=== PATIENT | male | born 1985 | race Two or more races ===

== ENCOUNTER 2023-12-28 17:07 | Inpatient (IN) | payer OTHER ==
[~2023-12-28] VITALS: Ht 180.3 cm; Wt 84.4 kg
--- NOTE | 2023-12-28 19:00 | ED.PDOC ---
Musculoskeletal HPI Comments 38 year old male with history of right index finger osteomyelitis brought in by law enforcement for evaluation of partially treated osteomyelitis. Patient is an inmate, was admitted at [facility] 3 weeks ago and was treated for osteomyelitis of the right index finger with vancomycin. Patient states he received IV antibiotics for about 14 days. Law enforcement officers accompanying the patient state that he was removed from hospital due to security reasons, and has not resumed any treatment. Patient comes in today for completion of his IV antibiotic course. He denies fever. He does have right index finger pain and swelling. Chief Complaint: Upper Extremity Time Seen by MD: 18:59 Primary Care Provider: INMATE Reviewed Notes: Nurses Notes Allergies: Coded Allergies: NO KNOWN ALLERGIES (Unverified , 12/28/23) Information Source: Patient Mode of Arrival: [facility]NOTE 3] [facility] GUARDS Location: Right Extremity Location: Finger 2 Timing: Weeks Severity: Moderate Able to Move Extremity: Yes Bear Weight: Limited Pain: Moderate Hand Dominance: Right Mechanism: Spontaneous Circumstances: Spontaneous Onset of Symptoms: Spontaneous Symptoms: Swelling, Pain Associated signs and symptoms: Other (right index finger) Past Medical History PAST MEDICAL HISTORY: Anxiety Past Medical History (Other): Right index finger osteomyelitis Surgical History (Other): Cervical spinal fusion Family History Family History: Reviewed,noncontributory to illness Social History Smoker: Non-Smoker Alcohol: Denies ETOH Use Drugs: Denies Drug Use Lives In: Home Constitutional: denies: chills, diaphoresis, fatigue, fever, malaise, sweats, weakness, others EENTM: denies: blurred vision, double vision, ear bleeding, ear discharge, ear drainage, ear pain, ear ringing, eye pain, eye redness, hearing loss, mouth pain, mouth swelling, nasal discharge, nose bleeding, nose congestion, nose pain, photophobia, tearing, throat pain, throat swelling, voice changes, others Respiratory: denies: cough, hemoptysis, orthopnea, SOB at rest, shortness of breath, SOB with excertion, stridor, wheezing, others Cardiovascular: denies: chest pain, dizzy spells, diaphoresis, Dyspnea on exertion, edema, irregular heart beat, left arm pain, lightheadedness, palpitations, PND, syncope, others Gastrointestinal: denies: abdomen distended, abdominal pain, blood streaked bowels, constipated, diarrhea, dysphagia, difficulty swallowing, hematemesis, melena, nausea, poor appetite, poor fluid intake, rectal bleeding, rectal pain, vomiting, others Genitourinary: denies: burning, dysuria, flank pain, frequency, hematuria, incontinence, penile discharge, penile sore, pain, testicle pain, testicle swelling, urgency, others Neurological: denies: dizziness, fainting, headache, left sided numbness, left sided weakness, numbness, paresthesia, pre-existing deficit, right sided numbness, right sided weakness, seizure, speech problems, tingling, tremors, weakness, others Musculoskeletal: reports: others (right index finger pain and swelling); denies: back pain, gout, joint pain, joint swelling, muscle pain, muscle stiffness, neck pain Integumetry: denies: bruises, change in color, change in hair/nails, dryness, laceration, lesions, lumps, rash, wounds, others Allergic/Immunocompromised: denies: Difficulty Healing, Frequent Infections, Hives, Itching, others Hematologic/Lymphatic: denies: anemia, blood clots, easy bleeding, easy bruising, swollen glands, others Endocrine: denies: excessive hunger, excessive sweating, excessive thirst, excessive urination, flushing, intolerance to cold, intolerance to heat, unexplained weight gain, unexplained weight loss, others Psychiatric: denies: anxiety, bipolar disorder, depression, hopeless, panic disorder, schizophrenia, sleepless, suicidal, others Physical Exam General Appearance: No Apparent Distress HEENT: Normal ENT Inspection Neck: Full Range of Motion, Normal Inspection Respiratory: Lungs Clear, No Accessory Muscle Use, No Respiratory Distress, Normal Breath Sounds Cardiovascular: No Edema, No JVD, Regular Rate/Rhythm Breast Exam: Deferred Gastrointestinal: Non Tender, Soft Genitalia: Deferred Pelvic: Deferred Rectal: Deferred Extremities: Normal range of motion, No pedal edema, Other (Right index finger moderate diffuse erythema and edema. No fluctuance or discharge.) Neurologic: Alert, No Motor Deficits, Normal Affect, Normal Mood, No Sensory Deficits Cerebellar Function: NOT DONE Reflexes: NOT DONE Skin: Dry, Normal Color, Warm Lymphatic: NOT DONE Was a procedure done? Was a procedure done?: No Differential Diagnosis EXT Differential Diagnosis: Cellulitis, Septic, Arthritis, Other (Abscess, osteomyelitis, among others) X-Ray, Labs, Meds, VS Vital Signs Date Time Temp Pulse Resp B/P (MAP) Pulse Ox O2 Delivery O2 Flow Rate FiO2 12/28/23 21:36 Room Air* 0 21 12/28/23 21:35 98.4 86 16 131/82 (98) 100 98.4 12/28/23 17:07 99.9 95 18 123/70 (87) 98 Lab Test 12/28/23 20:54 12/28/23 20:01 Range/Units Lactic Acid Level 1.0 0.4-2.0 mmol/L White Blood Count 8.2 4.4-10.8 10^3/uL Red Blood Count 4.74 4.5-5.90 10^6/uL Hemoglobin 15.4 13.5-17.5 g/dL Hematocrit 44.2 41.0-53.0 % Mean Corpuscular Volume 93.2 80.0-100.0 fL Mean Corpuscular Hemoglobin 32.5 H 28.0-32.0 pg Mean Corpuscular Hemoglobin Concent 34.9 32.0-36.0 g/dL Red Cell Distribution Width 13.2 11.8-14.3 % Platelet Count 240 140-450 10^3/uL Mean Platelet Volume 8.3 6.9-10.8 fL Neutrophils (%) (Auto) 64.1 37.0-80.0 % Lymphocytes (%) (Auto) 23.1 10.0-50.0 % Monocytes (%) (Auto) 9.4 0.0-12.0 % Eosinophils (%) (Auto) 2.7 0.0-7.0 % Basophils (%) (Auto) 0.7 0.0-2.0 % Neutrophils # (Auto) 5.3 1.6-8.6 10 ^3/uL Lymphocytes # (Auto) 1.9 0.4-5.4 10 ^3/uL Monocytes # (Auto) 0.8 0-1.3 10 ^3/uL Eosinophils # (Auto) 0.2 0-0.8 10 ^3/uL Basophils # (Auto) 0.1 0-0.2 10 ^3/uL Nucleated Red Blood Cells 0.1 % Sodium Level 138 136-145 mmol/L Potassium Level 4.5 3.5-5.1 mmol/L Chloride Level 106 98-107 mmol/L Carbon Dioxide Level 24 20-30 mmol/L Anion Gap 8 5-15 Blood Urea Nitrogen 13 9-23 mg/dL Creatinine 1.04 0.700-1.30 mg/dL Glomerular Filtration Rate Calc 95 >90 mL/min BUN/Creatinine Ratio 12.5 10.0-20.0 Serum Glucose 68 L 74-106 mg/dL Calcium Level 10.4 8.7-10.4 mg/dL Current Medications Medications (Trade) Dose Ordered Sig/Susan Route Start Time Stop Time Status Last Admin Vancomycin HCl 200 ml @ 200 mls/hr ONCE ONCE IV 12/28/23 18:30 12/28/23 19:29 DC 12/28/23 21:39 Ketorolac Tromethamine (Toradol Injection) 30 mg ONCE ONCE IV 12/28/23 18:30 12/28/23 18:31 DC 12/28/23 21:39 Sodium Chloride 1,000 ml @ 60 mls/hr [id number] IV 12/28/23 22:30 12/28/23 22:53 X-Ray, Labs, Meds, VS Comment 38-year-old male with history of right index finger osteomyelitis brought in by law enforcement for completion of treatment. Patient states he only received 14 days of IV vancomycin before he was removed from the hospital for security reasons. Vitals remarkable for temperature 99.9 Exam remarkable for right index finger diffuse soft tissue swelling, tenderness and erythema CBC, basic metabolic panel, lactate remarkable for glucose 68, no other abnormalities of acute significance. Right hand x-rays PROCEDURE(s): RHAN - R HAND 3 VIEW XRAY REASON: osteomyelitis R index ffinger ORDER NUMBER(s): [id number], ACCESSION NUMBER(s): [id number] CLINICAL INDICATION: osteomyelitis R index ffinger TECHNIQUE: XY R HAND 3 VIEW XRAY Comparison: None FINDINGS/IMPRESSION: There is no evidence of acute fracture or dislocation. Diffuse soft tissue swelling possible osteomyelitis involving the 2nd renal phalanx. MRI recommended. Patient received vancomycin 1 g IV and Toradol 30 mg IV in the ED. He was provided with a meal. Plan is to admit the patient for IV antibiotics and MRI of the hand to evaluate the severity of osteomyelitis. Time of 1ST Reevaluation: 18:53 Reevaluation 1ST: Unchanged Patient Education/Counseling: Diagnosis, Treatment Family Education/Counseling: No Family Present Departure 1 Departure Time of Disposition: 19:13 Impression: Primary Impression: Finger osteomyelitis, right Disposition: ADMITTED INPATIENT Admit to: Med Surg Condition: Fair Critical Care Note Critical Care Time?: No Stability Stability form required: No Heart Score Heart Score: Heart Score Response (Comments) Value History N/A 0 EKG N/A 0 Age N/A 0 Risk Factors N/A 0 Troponin N/A 0 Total 0 I personally scribed for SREEDHAR PADILLA MD ([email or web address]) on 12/28/23 at 19:00. Electronically submitted by Mello Mcclendon ([facility]). SREEDHAR PADILLA MD Dec 28, 2023 19:00
--- NOTE | 2023-12-28 19:16 | DVH ---
CLINICAL INDICATION: osteomyelitis R index ffinger TECHNIQUE: XY R HAND 3 VIEW XRAY Comparison: None FINDINGS/IMPRESSION: There is no evidence of acute fracture or dislocation. Diffuse soft tissue swelling possible osteomyelitis involving the 2nd renal phalanx. MRI recommended.
[2023-12-28 20:15] LABS: Basophils # (auto) 0.1 10 ^3/uL (0-0.2); Basophils % (auto) 0.7 % (0.0-2.0); Eosinophils # (auto) 0.2 10 ^3/uL (0-0.8); Eosinophils % (auto) 2.7 % (0.0-7.0); Hematocrit 44.2 % (41.0-53.0); Hemoglobin 15.4 g/dL (13.5-17.5); Lymphocytes # (auto) 1.9 10 ^3/uL (0.4-5.4); Lymphocytes % (auto) 23.1 % (10.0-50.0); Mean Corpuscular Hemoglobin 32.5 pg (28.0-32.0); Mean Corpuscular Hgb Conc. 34.9 g/dL (32.0-36.0); Mean Corpuscular Volume 93.2 fL (80.0-100.0); Monocytes # (auto) 0.8 10 ^3/uL (0-1.3); Monocytes % (auto) 9.4 % (0.0-12.0); Neutrophils # (auto) 5.3 10 ^3/uL (1.6-8.6); Neutrophils % (auto) 64.1 % (37.0-80.0); Nucleated Red Blood Cells % 0.1 %; Platelet Count (auto) 240 10^3/uL (140-450); Red Blood Cells 4.74 10^6/uL (4.5-5.90); Red Cell Distribution Width 13.2 % (11.8-14.3); White Blood Cell 8.2 10^3/uL (4.4-10.8)
[2023-12-28 20:28] LABS: Chloride 106 mmol/L (98-107); Potassium 4.5 mmol/L (3.5-5.1); Sodium 138 mmol/L (136-145)
[2023-12-28 20:29] LABS: Anion Gap 8 (5-15); Carbon Dioxide 24 mmol/L (20-30)
[2023-12-28 20:30] LABS: Calcium 10.4 mg/dL (8.7-10.4)
[2023-12-28 20:34] LABS: BUN/Creatinine Ratio 12.5 (10.0-20.0); Blood Urea Nitrogen 13 mg/dL (9-23); Glucose 68 mg/dL (74-106)
[2023-12-28] MEDS: VANCOMYCIN 1GM/200ML PREMIX 200 ML IV ONE (21:39)
[2023-12-28] MEDS: KETOROLAC TROMETH 30 MG/ML 1ML VIAL IV ONE (21:39)
[2023-12-28] MEDS ORDERED: MORPHINE SULFATE INJ 2 MG/ml SYRG IV PRN ×2 (22:30)
[2023-12-28] MEDS ORDERED: NITROGLYCERIN 0.4 MG SL TAB SL PRN (22:30)
[2023-12-28] MEDS ORDERED: HYDROcodone-ACET 5/325MG TAB PO PRN (22:30)
[2023-12-28] MEDS ORDERED: VANCOMYCIN PER PHARMACY 0 MG IV SCH (22:30)
[2023-12-28] MEDS ORDERED: ONDANSETRON HCL 4 MG/2 ML VIAL IV PRN (22:30)
[2023-12-28] MEDS ORDERED: ACETAMINOPHEN 325 MG TAB PO PRN (22:30)
--- NOTE | 2023-12-28 22:31 | DVHHP2 ---
History of Present Illness Reason for Visit: Finger osteomyelitis, right History of Present Illness The patient is a 38-year-old male inmate with past medical history of anxiety and right index finger osteomyelitis who presented to [facility] ED accompanied by law enforcement officers with complaint of right index finger pain. Patient was admitted at [facility] 3 weeks ago and was treated for osteomyelitis of the right index finger with vancomycin. Patient reports he received IV antibiotics for about 14 days, but was removed from Hospital due to security reason and has not resumed any treatment. Patient was seen and evaluated in the ED, laboratory data shows glucose 68, calcium 10.4. Right finger x-ray revealing diffuse soft tissue swelling possible osteomyelitis involving the 2nd renal phalanx; no evidence of acute fracture or dislocation. Patient was started on IV antibiotic regimen vancomycin, please see medication orders section in the computer. On my assessment, patient denies chest pain, no headache, no dizziness, no shortness of breath, no nausea, no vomiting, no fever, no chills. Patient was admitted for further evaluation and medical management. Past Medical History Anxiety, Right index finger osteomyelitis Past Surgical History Cervical spinal fusion surgery Family History Reviewed, noncontributory to the management of this case. Past Social History The patient lives at home, denies smoking, alcohol or illicit drugs abuse. Review of Systems Constitutional: No: Fever, Chills, Sweats, Weakness, Malaise, Other Eyes: No: Pain, Vision change, Conjunctivae inflammation, Eyelid inflammation, Other, Redness ENT: No: Ear pain, Ear discharge, Nose pain, Nose discharge, Nose congestion, Mouth pain, Mouth swelling, Throat pain, Throat swelling, Other Respiratory: No: Cough, Dry, Shortness of breath, SOB with excertion, Wheezing, Hemoptysis, Pleuritic Pain, Sputum, Wheezing, Other Cardiovascular: No: Chest Pain, Palpitations, Orthopnea, Paroxysmal Noc. Dyspnea, Edema, Lt Headedness, Other Gastrointestinal: No: Nausea, Vomiting, Abdominal Pain, Diarrhea, Constipation, Melena, Hematochezia, Other Genitourinary: No Dysuria, No Frequency, No Incontinence, No Hematuria, No Retention, No Other Musculoskeletal: other (right index finger pain and swelling); No: neck pain, shoulder pain, arm pain, back pain, hand pain, leg pain, foot pain Skin: No: Rash, Lesions, Jaundice, Bruising, Other Neurological: No: Weakness, Numbness, Incoordination, Change in speech, Confusion, Seizures, Other Allergies: Coded Allergies: NO KNOWN ALLERGIES (Unverified , 12/28/23) Medications Current Medications Medications Dose Ordered Sig/Susan Route Start Time Stop Time Status Last Admin Dose Admin Vancomycin HCl 0 ml @ 0 mls/hr UD IV 12/28/23 22:30 UNV Sodium Chloride 1,000 ml @ 60 mls/hr [id number] IV 12/28/23 22:30 Acetaminophen/ Hydrocodone Bitart 1 tab Q4HP PRN PO 12/28/23 22:30 Ondansetron HCl 4 mg Q4HP PRN IV 12/28/23 22:30 Docusate Sodium 100 mg BIDPRN PRN PO 12/28/23 22:30 Acetaminophen 650 mg Q6HP PRN PO 12/28/23 22:30 Morphine Sulfate 2 mg Q4HPRN PRN IV 12/28/23 22:30 Exam Vital Signs Vital Signs Date Time Temp Pulse Resp B/P (MAP) Pulse Ox O2 Delivery O2 Flow Rate FiO2 12/28/23 21:36 Room Air* 0 21 12/28/23 21:35 98.4 86 16 131/82 (98) 100 98.4 General Appearance: Alert, Oriented X3, Cooperative, No acute distress HEENT: Atraumatic, PERRLA, EOMI, Mucous membr. moist/pink Respiratory: Clear to auscultation, Normal air movement Cardiovascular: Regular rate, Normal S1, Normal S2, No murmurs Abdominal: Normal bowel sounds, Soft, No tenderness, No hepatospenomegaly, No masses Extremities: No clubbing, No cyanosis, No edema, Normal pulses, Other (Right index finger tenderness/swelling.) Skin: No rashes, No breakdown, No significant lesion Neuro: Normal gait, Normal speech, Strength at 5/5 X4 ext, Normal tone, Sensation intact, Cranial nerves 3-12 NL, Reflexes 2+ Psych/Mental Status: Mental status NL, Mood NL Labs/Xrays Labs Test 12/28/23 20:54 12/28/23 20:01 Range/Units Lactic Acid Level 1.0 0.4-2.0 mmol/L White Blood Count 8.2 4.4-10.8 10^3/uL Red Blood Count 4.74 4.5-5.90 10^6/uL Hemoglobin 15.4 13.5-17.5 g/dL Hematocrit 44.2 41.0-53.0 % Mean Corpuscular Volume 93.2 80.0-100.0 fL Mean Corpuscular Hemoglobin 32.5 H 28.0-32.0 pg Mean Corpuscular Hemoglobin Concent 34.9 32.0-36.0 g/dL Red Cell Distribution Width 13.2 11.8-14.3 % Platelet Count 240 140-450 10^3/uL Mean Platelet Volume 8.3 6.9-10.8 fL Neutrophils (%) (Auto) 64.1 37.0-80.0 % Lymphocytes (%) (Auto) 23.1 10.0-50.0 % Monocytes (%) (Auto) 9.4 0.0-12.0 % Eosinophils (%) (Auto) 2.7 0.0-7.0 % Basophils (%) (Auto) 0.7 0.0-2.0 % Neutrophils # (Auto) 5.3 1.6-8.6 10 ^3/uL Lymphocytes # (Auto) 1.9 0.4-5.4 10 ^3/uL Monocytes # (Auto) 0.8 0-1.3 10 ^3/uL Eosinophils # (Auto) 0.2 0-0.8 10 ^3/uL Basophils # (Auto) 0.1 0-0.2 10 ^3/uL Nucleated Red Blood Cells 0.1 % Sodium Level 138 136-145 mmol/L Potassium Level 4.5 3.5-5.1 mmol/L Chloride Level 106 98-107 mmol/L Carbon Dioxide Level 24 20-30 mmol/L Anion Gap 8 5-15 Blood Urea Nitrogen 13 9-23 mg/dL Creatinine 1.04 0.700-1.30 mg/dL Glomerular Filtration Rate Calc 95 >90 mL/min BUN/Creatinine Ratio 12.5 10.0-20.0 Serum Glucose 68 L 74-106 mg/dL Calcium Level 10.4 8.7-10.4 mg/dL PATIENT: JANIA VALDEZ ACCT: [id number] UNIT: [id number] : 1985 LOC: ER ROOM / BED: / AGE / SEX: 38 / M ADM STATUS: REG ER SERVICE [id number] ORDERING PHYSICIAN: SREEDHAR PADILLA MD PROCEDURE(s): RHAN - R HAND 3 VIEW XRAY REASON: osteomyelitis R index ffinger ORDER NUMBER(s): [id number], ACCESSION NUMBER(s): [id number] CLINICAL INDICATION: osteomyelitis R index ffinger TECHNIQUE: XY R HAND 3 VIEW XRAY Comparison: None FINDINGS/IMPRESSION: There is no evidence of acute fracture or dislocation. Diffuse soft tissue swelling possible osteomyelitis involving the 2nd renal phalanx. MRI recommended. Assessment/Plan Assessment/Plan Hypoglycemia Finger osteomyelitis, right Plan 1. Admit to med surge unit 2. Breathing treatment 3. Pain control management 4. IV antibiotic management 5. Management of fluids and electrolytes 6. Consultation for hospitalist 7. Diagnostic test right finger x-ray 8. DVT prophylaxis-on SCDs 9. Repeat labs CBC, CMP in a.m. 10. Continue with current medical management 11. Treatment plan discussed with patient and RN. Patient verbalized understanding. Plan discussed with: Patient, Other (RN) My Orders Orders - SHOSHANA MAYER DNP Procedure Category Date Status Time Vancomycin Per PHA 12/28/23 Logged Pharmacy 22:30 Allergies RADHA 12/28/23 In Process 22:26 Code Status CODE 12/28/23 Transmitted 22:26 Sodium Chloride 0.9% PHA 12/28/23 In Process 22:30 Oxygen Per Hour RT 12/28/23 Transmitted 22:26 Hydrocodone-Acet PHA 12/28/23 In Process 5/325mg Tab (Donna 22:30 Ondansetron Hcl PHA 12/28/23 In Process (Zofran) 22:30 Docusate Sodium PHA 12/28/23 In Process Capsule (Colace 22:30 Complete Blood Count LAB 12/29/23 Verified 04:00 Comprehensive LAB 12/29/23 Verified Metabolic Panel 04:00 Cardiac DIET 12/29/23 Transmitted Diet-2gna,Lofat,Lochol Breakfast Condition: Serious RADHA 12/28/23 In Process 22:26 Acetaminophen Tablet PHA 12/28/23 In Process (Tylenol Tablet) 22:30 Bedrest With Bathroom RADHA 12/28/23 In Process Privileg 22:26 Morphine Sulfate PHA 12/28/23 In Process Injection 22:30 Sequential RADHA 12/28/23 In Process Compression Device Problem List: (1) Hypoglycemia (2) Finger osteomyelitis, right Date of Service: Dec 28, 2023 Billing Provider: SHOSHANA MAYER DNP Common Visit Codes: [id number] INP/OBS CARE (HIGH) SHOSHANA MAYER DNP Dec 28, 2023 22:31
[2023-12-28] MEDS: SODIUM CHLORIDE 0.9% 1,000 ML IV SCH (22:53)
[2023-12-29] VITALS (9 sets, daily range): BP systolic 112–133; BP diastolic 75–88; PULSE 55–72; RESP 16–18; TEMP 97.6–98.2; O2SAT 96–100
[2023-12-29] MEDS: D5W/SOD CHLO 0.9% 1,000 ML IV SCH (05:52)
--- NOTE | 2023-12-29 07:13 | DVHINCON2 ---
Date of service: Dec 29, 2023 Referring Physician ED Reason for Consultation right index finger pain History of Present Illness The patient is a 38-year-old male inmate with past medical history of anxiety and right index finger osteomyelitis who presented to [facility] ED accompanied by law enforcement officers with complaint of right index finger pain. Patient was admitted at [facility] 3 weeks ago and was treated for osteomyelitis of the right index finger with vancomycin. Patient reports he received IV antibiotics for about 14 days, but was removed from Hospital due to security reason and has not resumed any treatment. Patient states that he had a laceration from a ceramic knife in the kitchen in October that subsequently became infected and was draining. He was initially treated with oral antibiotics at the [facility]. I reviewed hospital medical records at [place] and noted that he did have an MRI performed which revealed increased signal in the proximal and middle phalanx. Both x-ray and MRI findings reveal severe joint space narrowing and loss of cartilage at the PIP joint. There was no evidence of any soft tissue fluid collections that would be amenable to surgical intervention. Past Medical History Anxiety, Right index finger osteomyelitis Past Surgical History Cervical spinal fusion surgery Family History Reviewed, noncontributory to the management of this case. Past Social History The patient lives at home, denies smoking, alcohol or illicit drugs abuse. Family History: Diabetes mellitus G8 FATHER Allergies: Coded Allergies: NO KNOWN ALLERGIES (Unverified , 12/28/23) Current Medications Current Medications Medications (Trade) Dose Ordered Sig/Susan Route PRN Reason Start Time Stop Time Status Last Admin Vancomycin HCl 0 ml @ 0 mls/hr UD IV 12/28/23 22:30 UNV Sodium Chloride 1,000 ml @ 60 mls/hr [id number] IV 12/28/23 22:30 12/29/23 05:32 DC 12/28/23 22:53 Acetaminophen/ Hydrocodone Bitart ([place] 5/325MG Tab) 1 tab Q4HP PRN PO MODERATE PAIN (4-6 PAIN SCALE) 12/28/23 22:30 Ondansetron HCl (Zofran) 4 mg Q4HP PRN IV NAUSEA / VOMITING 12/28/23 22:30 Docusate Sodium (Colace Capsule) 100 mg BIDPRN PRN PO FOR CONSTIPATION 12/28/23 22:30 Acetaminophen (Tylenol Tablet) 650 mg Q6HP PRN PO PAIN SCALE 1-3 OR TEMP>100.4 12/28/23 22:30 Morphine Sulfate 2 mg Q4HPRN PRN IV SEVERE PAIN (7-10 PAIN SCALE) 12/28/23 22:30 Nitroglycerin (Ntrostat Sublingual) 0.4 mg Q5MINP PRN SL FOR CHEST PAIN 12/28/23 22:30 Morphine Sulfate 2 mg Q30M PRN IV FOR CHEST PAIN 12/28/23 22:30 Dextrose/Sodium Chloride 1,000 ml @ 75 mls/hr [id number] IV 12/29/23 05:30 12/29/23 05:52 Review of Systems Negative on 10 point review except as above Vital Signs Vital Signs Date Time Temp Pulse Resp B/P (MAP) Pulse Ox O2 Delivery O2 Flow Rate FiO2 12/29/23 04:52 97.6 65 18 112/81 (91) 100 97.6 12/29/23 04:52 Room Air* 0 21 Physical Exam Well-developed well-nourished male in no acute distress Alert and oriented x4 Examination of the right hand reveals he does have some mild edema at the index finger with some mild associated tenderness. He does have significant loss of range of motion particularly at the PIP joint. Active flexion-extension intact without undue discomfort. Sensation subjectively intact to light touch He is normal color, temperature, and capillary refill to the digit Review of x-rays reveals that he does have severe joint space narrowing at the PIP joint Labs/Diagnostic Data Labs Test 12/29/23 06:44 12/28/23 20:54 12/28/23 20:01 Range/Units Lactic Acid Level 1.0 0.4-2.0 mmol/L Eosinophils (%) (Auto) 2.7 0.0-7.0 % Eosinophils # (Auto) 0.2 0-0.8 10 ^3/uL Basophils # (Auto) 0.1 0-0.2 10 ^3/uL Nucleated Red Blood Cells 0.1 % HIV (1&2) Antibody Negative Negative Assessment Index finger chronic infection Possible osteomyelitis Probable PIP post septic arthritis Plan/Recommendation The patient's symptoms are improving. There are no indications for immediate surgical intervention. I recommend Infectious Disease consultation for antibiotic choice and duration. Outpatient consultation with hand subspecialist on an outpatient basis for his loss of function at the PIP joint. Plan discussed with: Patient MELODIE MARCUS MD Dec 29, 2023 07:13
[2023-12-29 07:38] LABS: Alanine Aminotransferase 23 U/L (7-40); Albumin 3.9 g/dL (3.2-4.8); Alkaline Phosphatase 61 U/L (46-116); Anion Gap 5 (5-15); Aspartate Aminotransferase 17 U/L (13-40); BUN/Creatinine Ratio 19.8 (10.0-20.0); Blood Urea Nitrogen 19 mg/dL (9-23); Calcium 8.9 mg/dL (8.7-10.4); Carbon Dioxide 24 mmol/L (20-30); Chloride 111 mmol/L (98-107); Glucose 89 mg/dL (74-106); Potassium 4.3 mmol/L (3.5-5.1); Sodium 140 mmol/L (136-145)
[2023-12-29 07:39] LABS: Bilirubin, Total 0.6 mg/dL (0.2-1.0); Total Protein 6.2 g/dL (5.7-8.2)
[2023-12-29 07:50] LABS: Basophils # (auto) 0 10 ^3/uL (0-0.2); Basophils % (auto) 0.9 % (0.0-2.0); Eosinophils # (auto) 0.7 10 ^3/uL (0-0.8); Eosinophils % (auto) 13.6 % (0.0-7.0); Hematocrit 40.1 % (41.0-53.0); Lymphocytes # (auto) 1.3 10 ^3/uL (0.4-5.4); Lymphocytes % (auto) 25.8 % (10.0-50.0); Mean Corpuscular Hemoglobin 32.7 pg (28.0-32.0); Mean Corpuscular Hgb Conc. 34.9 g/dL (32.0-36.0); Mean Corpuscular Volume 93.6 fL (80.0-100.0); Monocytes # (auto) 0.7 10 ^3/uL (0-1.3); Monocytes % (auto) 13.2 % (0.0-12.0); Neutrophils # (auto) 2.3 10 ^3/uL (1.6-8.6); Neutrophils % (auto) 46.5 % (37.0-80.0); Nucleated Red Blood Cells % 0.2 %; Platelet Count (auto) 204 10^3/uL (140-450); Red Blood Cells 4.28 10^6/uL (4.5-5.90); Red Cell Distribution Width 13.2 % (11.8-14.3); White Blood Cell 4.9 10^3/uL (4.4-10.8)
[2023-12-29] MEDS ORDERED: VANCOMYCIN 1GM/200ML PREMIX 200 ML IV SCH (09:00)
[2023-12-29 10:02] LABS: Erythrocyte Sedimentation Rate 7 mm/hr (0-20)
[2023-12-29] MEDS: VANCOMYCIN 1GM/200ML PREMIX 200 ML IV SCH (12:47)
--- NOTE | 2023-12-29 13:04 | DVHPN2 ---
Subjective Continues to have some discomfort and limited range of motion to his left index finger. Reviewed: Care Plan, H&P, Labs, Medications Changes from previous H/P or p: No Changes General: Per HPI Eyes: No Pain, No Vision change, No Conjunctivae inflammation, No Eyelid inflammation, No Other, No Redness ENT: No Ear pain, No Ear discharge, No Nose pain, No Nose discharge, No Nose congestion, No Mouth pain, No Mouth swelling, No Throat pain, No Throat swelling, No Other Cardiovascular: No Chest Pain, No Palpitations, No Orthopnea, No Paroxysmal Noc. Dyspnea, No Edema, No Lt Headedness, No Other Respiratory: No Cough, No Dry, No Shortness of breath, No SOB with excertion, No Wheezing, No Hemoptysis, No Pleuritic Pain, No Sputum, No Other Gastrointestinal: No Nausea, No Vomiting, No Abdominal Pain, No Diarrhea, No Constipation, No Melena, No Hematochezia, No Other Genitourinary: No Dysuria, No Frequency, No Incontinence, No Hematuria, No Retention, No Other Musculoskeletal: other (right index finger pain and swelling); No neck pain, No shoulder pain, No arm pain, No back pain, No hand pain, No leg pain, No foot pain Skin: No Rash, No Lesions, No Jaundice, No Bruising, No Other Objective Vitals Vital Signs Date Time Temp Pulse Resp B/P (MAP) Pulse Ox O2 Delivery O2 Flow Rate FiO2 12/29/23 09:00 97.6 63 16 131/83 (99) 97 97.6 12/29/23 08:00 Room Air* 0 21 Intake/Output Intake and Output 12/29/23 07:00 Intake Total 330 ml Output Total 450 ml Balance -120 ml Intake Oral 150 ml IV Total 180 ml Output Urine Total 450 ml General Appearance: Alert, Oriented X3, Cooperative, No acute distress HEENT: Atraumatic, PERRLA Lungs: Clear to auscultation Cardiovascular: Normal S1, Normal S2 Abdomen: Normal bowel sounds Rectal: Normal inspection Neuro: Normal gait, Normal speech Psych/Mental Status: Mental status NL, Mood NL Medications Current Medications Medications Dose Ordered Sig/Susan Route Start Time Stop Time Status Last Admin Dose Admin Vancomycin HCl 0 ml @ 0 mls/hr UD IV 12/28/23 22:30 Acetaminophen/ Hydrocodone Bitart 1 tab Q4HP PRN PO 12/28/23 22:30 Ondansetron HCl 4 mg Q4HP PRN IV 12/28/23 22:30 Docusate Sodium 100 mg BIDPRN PRN PO 12/28/23 22:30 Acetaminophen 650 mg Q6HP PRN PO 12/28/23 22:30 Morphine Sulfate 2 mg Q4HPRN PRN IV 12/28/23 22:30 Nitroglycerin 0.4 mg Q5MINP PRN SL 12/28/23 22:30 Morphine Sulfate 2 mg Q30M PRN IV 12/28/23 22:30 Dextrose/Sodium Chloride 1,000 ml @ 75 mls/hr [id number] IV 12/29/23 05:30 12/29/23 05:52 75 MLS/HR Cefepime HCl 50 ml @ 12.5 mls/hr Q8HR IV 12/29/23 14:00 Vancomycin HCl 200 ml @ 200 mls/hr Q8H IV 12/29/23 12:15 12/29/23 12:47 200 MLS/HR Laboratory Results Laboratory Tests 12/29/23 06:44 Chemistry Test 12/28/23 20:01 12/29/23 06:44 Calcium Level 10.4 mg/dL (8.7-10.4) 8.9 mg/dL (8.7-10.4) Albumin 3.9 g/dL (3.2-4.8) Total Protein 6.2 g/dL (5.7-8.2) LFT Test 12/29/23 06:44 Alanine Aminotransferase (ALT) 23 U/L (7-40) Alkaline Phosphatase 61 U/L (46-116) Aspartate Amino Transferase (AST) 17 U/L (13-40) Total Bilirubin 0.6 mg/dL (0.2-1.0) Labs and/or images reviewed: Labs reviewed by me, Image(s) reviewed by me Assessment/Plan Assessment/Plan Impression: -persistent osteomyelitis to 1st digit of left hand Plan: -surgical consultation: Recommendations reviewed by Orthopedic surgery. -social service consultation: Transferred to higher level care for hand specialist -continue antibiotic therapy with vancomycin, add cefepime -pain management -discussed with patient previous diagnostic testing that was performed at [facility]. Apparently, the patient had two MRIs before and after treatment at that facility. We will hold off on MRIs to be performed at this facility. Recommend to obtain medical records from [facility] by accepting facility. Total time spent with patient discussing and formulating plan of care: 35 minutes. This medical document was created using an electronic medical record system with [employer] dictation system. Although this document has been carefully reviewed, there may still be some phonetic and typographical errors. These areas are purely typographical due to imperfections of the software programs, and do not reflect any compromise in the patient's medical care. Plan discussed with: Patient, Other (Rn) My Orders Orders - TAYLOR WALLER NP Procedure Category Date Status Time Cefepime 1gm/ 50ml PHA 12/29/23 In Process (Maxipime 1gm/50ml) 14:00 Date of Service: Dec 29, 2023 Billing Provider: TAYLOR WALLER NP Common Visit Codes: [id number] INP/OBS CARE(HIGH) TAYLOR WALLER NP Dec 29, 2023 13:04
[2023-12-29] MEDS: CEFEPIME 1GM/ 50ML 50 ML IV SCH (15:11)
[2023-12-30] VITALS (8 sets, daily range): BP systolic 102–124; BP diastolic 64–94; PULSE 69–98; RESP 14–22; TEMP 97.8–99.1; O2SAT 71–99
--- NOTE | 2023-12-30 17:41 | DVHPN2 ---
Subjective Continues to have some discomfort and limited range of motion to his left index finger. Reviewed: Care Plan, H&P, Labs, Medications Changes from previous H/P or p: No Changes General: Per HPI Eyes: No Pain, No Vision change, No Conjunctivae inflammation, No Eyelid inflammation, No Other, No Redness ENT: No Ear pain, No Ear discharge, No Nose pain, No Nose discharge, No Nose congestion, No Mouth pain, No Mouth swelling, No Throat pain, No Throat swelling, No Other Cardiovascular: No Chest Pain, No Palpitations, No Orthopnea, No Paroxysmal Noc. Dyspnea, No Edema, No Lt Headedness, No Other Respiratory: No Cough, No Dry, No Shortness of breath, No SOB with excertion, No Wheezing, No Hemoptysis, No Pleuritic Pain, No Sputum, No Other Gastrointestinal: No Nausea, No Vomiting, No Abdominal Pain, No Diarrhea, No Constipation, No Melena, No Hematochezia, No Other Genitourinary: No Dysuria, No Frequency, No Incontinence, No Hematuria, No Retention, No Other Musculoskeletal: other (right index finger pain and swelling); No neck pain, No shoulder pain, No arm pain, No back pain, No hand pain, No leg pain, No foot pain Skin: No Rash, No Lesions, No Jaundice, No Bruising, No Other Objective Vitals Vital Signs Date Time Temp Pulse Resp B/P (MAP) Pulse Ox O2 Delivery O2 Flow Rate FiO2 12/30/23 17:00 97.8 84 18 124/86 (99) 98 97.8 12/30/23 08:00 Room Air* 0 21 Intake/Output Intake and Output 12/30/23 07:00 Intake Total 3031 ml Output Total 900 ml Balance 2131 ml Intake Oral 2331 ml IV Total 700 ml Output Urine Total 900 ml # Voids 3 General Appearance: Alert, Oriented X3, Cooperative, No acute distress HEENT: Atraumatic, PERRLA Lungs: Clear to auscultation Cardiovascular: Normal S1, Normal S2 Abdomen: Normal bowel sounds Rectal: Normal inspection Neuro: Normal gait, Normal speech Psych/Mental Status: Mental status NL, Mood NL Medications Current Medications Medications Dose Ordered Sig/Susan Route Start Time Stop Time Status Last Admin Dose Admin Vancomycin HCl 0 ml @ 0 mls/hr UD IV 12/28/23 22:30 Acetaminophen/ Hydrocodone Bitart 1 tab Q4HP PRN PO 12/28/23 22:30 Ondansetron HCl 4 mg Q4HP PRN IV 12/28/23 22:30 Docusate Sodium 100 mg BIDPRN PRN PO 12/28/23 22:30 Acetaminophen 650 mg Q6HP PRN PO 12/28/23 22:30 Morphine Sulfate 2 mg Q4HPRN PRN IV 12/28/23 22:30 Nitroglycerin 0.4 mg Q5MINP PRN SL 12/28/23 22:30 Morphine Sulfate 2 mg Q30M PRN IV 12/28/23 22:30 Dextrose/Sodium Chloride 1,000 ml @ 75 mls/hr [id number] IV 12/29/23 05:30 12/30/23 12:41 75 MLS/HR Cefepime HCl 50 ml @ 12.5 mls/hr Q8HR IV 12/29/23 14:00 12/30/23 05:37 12.5 MLS/HR Vancomycin HCl 200 ml @ 200 mls/hr Q8H IV 12/29/23 12:15 12/30/23 12:31 200 MLS/HR Laboratory Results Laboratory Tests 12/29/23 06:44 Microbiology Microbiology Date/Time Source Procedure Growth Status 12/29/23 06:00 Nose MRSA Screen - Final Complete Labs and/or images reviewed: Labs reviewed by me, Image(s) reviewed by me Assessment/Plan Assessment/Plan Impression: -persistent osteomyelitis to 1st digit of left hand Plan: Events: Spoke with transfer team at [facility] yesterday. They are currently on diversion with respect to beds. Hospitalist there also is requesting that we have MRI of hand available. -obtain medical records from [facility] regarding to MRIs that were performed on the patient two weeks ago. -surgical consultation: Recommendations reviewed by Orthopedic surgery. -social service consultation: Transferred to higher level care for hand specialist -continue antibiotic therapy with vancomycin, add cefepime -pain management -discussed with patient previous diagnostic testing that was performed at [facility]. Apparently, the patient had two MRIs before and after treatment at that facility. We will hold off on MRIs to be performed at this facility. Recommend to obtain medical records from [facility] by accepting facility. Total time spent with patient discussing and formulating plan of care: 35 minutes. This medical document was created using an electronic medical record system with [employer] computerized dictation system. Although this document has been carefully reviewed, there may still be some phonetic and typographical errors. These areas are purely typographical due to imperfections of the software programs, and do not reflect any compromise in the patient's medical care. Plan discussed with: Patient, Other (RN) My Orders Orders - TAYLOR WALLER NP Procedure Category Date Status Time Obtain Mr From Other ORDERS 12/30/23 Transmitted Facility 08:35 * Motor Vehicle [employer]er CONS 12/30/23 Transmitted Consult Date of Service: Dec 30, 2023 Billing Provider: TAYLOR WALLER NP Common Visit Codes: [id number] INP/OBS CARE(HIGH) TAYLOR WALLER NP Dec 30, 2023 17:41
[2023-12-31 01:00] VITALS: BP 102/60; PULSE 82; RESP 20; TEMP 97.8; O2SAT 98
[2023-12-31 05:00] VITALS: BP 98/105; PULSE 72; RESP 21; TEMP 98.3; O2SAT 21
[2023-12-31 08:00] VITALS: PULSE 68; RESP 18; O2SAT 97
[2023-12-31 12:59] LABS: Hepatitis B Surface Antigen Negative (Negative)
[2023-12-31 13:00] VITALS: BP 103/75; PULSE 70; RESP 18; TEMP 98; O2SAT 92
[2023-12-31 13:20] LABS: Hepatitis A Ab IgM Negative; Hepatitis B Core IgM Negative
[2023-12-31 13:21] LABS: Hepatitis C Antibody Negative (Negative)
[2023-12-31] MEDS ORDERED: HYDROcodone-ACET 10/325MG TAB PO PRN (15:30)
[2023-12-31 17:00] VITALS: BP 120/86; PULSE 70; RESP 20; TEMP 98.1; O2SAT 92
--- NOTE | 2023-12-31 19:02 | DVHPN ---
DATE: 12/31/2023 ATTENDING PHYSICIAN: Dr. Jeremías Gar. SUBJECTIVE: The patient is seen sitting up in bed. He is smiling when I approached. He recognizes me from previous admission and states he has not had any antibiotics since he was discharged from [facility]. Currently, he denies any pain to the finger, chest pain, cough, shortness of breath nor fever. OBJECTIVE: VITAL SIGNS: His temperature is 98 with a blood pressure of 103/75, a heart rate of 70, respiratory rate of 18 and O2 sats of 92% on room air. HEART: S1, S2 regular. No click, murmur or gallop. LUNGS: Good equal air exchange bilateral, clear to auscultation. ABDOMEN: Soft, nondistended, nontender. Bowel sounds are positive. No mass, guarding or rebound. NEUROLOGIC: He is awake, alert, oriented x4 without any focal deficit. EXTREMITIES: Right index finger shows some mild to moderate swelling with marked decreased range of motion, mildly warm to the touch without any erythema or obvious wound or discharge. He is neurovascularly intact distally. ASSESSMENT: * Cellulitis/osteomyelitis of right index finger. * History of anxiety. PLAN: We will continue with the vancomycin and the cefepime for the osteomyelitis. We will continue with [place] for pain, but we will discontinue the morphine. Continue Zofran for nausea and vomiting. Colace for constipation. I have ordered for a regular diet, ambulate as tolerated and may shower p.r.n. I have also asked for an exercise for the patient to work on right hand. I have ordered for an MRI to see the extent of the osteomyelitis as compared to previous admission at [facility] last month. MD CLAU Caruso/JOSÉ MIGUEL TID: [id number] RECEIPT: [id number]
[2023-12-31 21:00] VITALS: BP 137/77; PULSE 64; RESP 20; TEMP 97.6; O2SAT 94
[2023-12-31] MEDS: FLUTICASONE PROP NASAL SPR 0.05 % (50MCG) 16GM EACHNOSTRI SCH (22:00)
[2023-12-31] MEDS: AMITRIPTYLINE HCL 25 MG TAB PO SCH (22:56)
[2024-01-01 01:00] VITALS: BP 97/65; PULSE 61; RESP 18; TEMP 97.5; O2SAT 98
[2024-01-01 05:00] VITALS: BP 126/78; PULSE 66; RESP 20; TEMP 97.5; O2SAT 99
[2024-01-01 08:30] VITALS: RESP 18; O2SAT 97
[2024-01-01 12:33] VITALS: BP 116/71; PULSE 82; RESP 16; TEMP 98; O2SAT 98
--- NOTE | 2024-01-01 14:24 | DVH ---
CLINICAL INFORMATION: 38 years old, Male; PAIN. TECHNIQUE: Pain and swelling in the 2nd digit. COMPARISON: Radiographs dated 12/28/2023. Prior MRI dated 12/12/2023 and previous MRI dated 4. FINDINGS: Moderate soft tissue swelling and subcutaneous edema in the 2nd digit, greatest near the PI P joint, minimally changed compared to the most recent MRI dated 12/12/2023, although appears improve d compared to the MRI dated 11/28/2023. There is a stable joint effusion at the PIP joint of the 2nd digit. Prominent t2/stir hyperintense signal throughout the proximal phalanx and most of the middle p halanx, minimally changed compared to the prior exam. There is T1 hypointense signal at the distal as pect of the proximal phalanx , including the head of the proximal phalanx , minimally changed compare d to the prior exam given differences in technique . There appears to be less T1 hypointense signal a t the base of the middle phalanx compared to the prior exam. Visualized tendons and ligamentous struc tures appear intact. IMPRESSION: 1. Soft tissue inflammatory changes, minimally changed compared to the MRI dated 12/12/2023, but appe ars improved overall compared to the prior MRI dated 11/28/2023. There is a small joint effusion, mi nimally changed. 2. Again noted are marrow signal changes in the proximal phalanx and middle phalanx, including some T 1 hypointense signal at the distal aspect of the proximal phalanx, suspected osteomyelitis in the set ting of overlying soft tissue infection. Correlate with clinical findings. The T1 hypointense signal at the base of the middle phalanx has improved compared to the most recent MRI. Correlate with clini tony findings.
[2024-01-01 16:45] VITALS: BP 124/77; PULSE 102; RESP 17; TEMP 98.8; O2SAT 99
[2024-01-01 22:00] VITALS: BP 131/80; PULSE 90; RESP 16; TEMP 98; O2SAT 98
--- NOTE | 2024-01-01 23:26 | DVHPN ---
DATE: 01/01/2024 ATTENDING PHYSICIAN: Jeremías Gar MD SUBJECTIVE: The patient sitting up in bed. He shows me the increased range of motion of his finger, but he complains that he is not getting very much of the meal. He states that when I changed from a cardiac diet to regular diet, the meal portion became much smaller. I informed the patient I will investigate into the situation. At this time, he denies any chest pain, cough, shortness of breath, fever, nausea, vomiting. OBJECTIVE: VITAL SIGNS: His temperature is 98.8 with a blood pressure of 124/77, heart rate of 102, respiratory rate 17, O2 sats 99% on room air. HEART: S1, S2 regular. No click, murmur, or gallop. LUNGS: Good equal air exchange bilateral, clear to auscultation. ABDOMEN: Soft, nondistended, nontender. Bowel sounds positive. No mass, guarding, or rebound. NEUROLOGIC: He is awake, alert, oriented x4 without any focal deficit. EXTREMITIES: Right index finger shows [id number] swelling with moderate decreased range of motion. Temperature is cool to the touch, though there is some tenderness. IMAGING STUDIES: * MRI reveals soft tissue inflammatory changes, minimally changed compared to MRI dated 12/11, but appears improved overall compared to the prior MRI dated 11/27. There is small joint effusion, minimally changed. * Again noted, marrow signal changes proximal phalanx, middle phalanx including T1 hypointense signal at the distal aspect of the proximal phalanx. Suspected osteomyelitis in the setting of overlying soft tissue infection. The hypointense signal at the base of the middle phalanx is improved compared to the most recent MRI. ASSESSMENT: * Cellulitis/osteomyelitis of right index finger. * Anxiety. PLAN: We will continue with the [place] for pain, Zofran for nausea and vomiting, Colace for constipation. Regular diet. Activities as tolerated. Vancomycin and cefepime for the osteomyelitis. MD CLAU Caruso/HAI TID: [id number] RECEIPT: [id number]
[2024-01-02] VITALS (8 sets, daily range): BP systolic 103–131; BP diastolic 66–89; PULSE 0–96; RESP 14–18; TEMP 97.4–97.8; O2SAT 96–99
--- NOTE | 2024-01-02 21:31 | DVHPN ---
DATE: 01/02/2024 ATTENDING PHYSICIAN: Jeremías Gar MD SUBJECTIVE: The patient is sitting up in bed. He is watching TV. He is in good spirits. He has no new complaints and no untoward events have been noted. Currently, denies any pain. OBJECTIVE: VITAL SIGNS: His temperature is 97.4 with a blood pressure of 131/89, heart rate of 73, respiratory rate 17, O2 sat 97% on room air. HEART: S1, S2 regular. No click, murmur or gallop. LUNGS: Good equal air exchange bilateral, clear to auscultation. ABDOMEN: Soft, nondistended, nontender. Bowel sounds positive. No mass, guarding or rebound. NEUROLOGIC: He is awake, alert, oriented x4. No focal deficits. EXTREMITIES: Right index finger still shows moderate swelling with moderate decreased range of motion and is nontender, slightly warm to the touch. LABORATORY DATA: Creatinine 1.1 with a GFR of 85. ASSESSMENT: * Cellulitis/osteomyelitis of right index finger. * Anxiety. PLAN: We will continue with Zofran for nausea and vomiting, Colace for constipation, vancomycin, cefepime for the osteomyelitis, and [place] for pain. Again, I encouraged the patient to continue exercising and stretching the index finger as well as ambulating as much as possible. MD CLAU Caruso/LIBORIO TID: [id number] RECEIPT: [id number]
[2024-01-03] VITALS (8 sets, daily range): BP systolic 95–155; BP diastolic 54–80; PULSE 51–87; RESP 16–20; TEMP 97.3–98.5; O2SAT 96–99
--- NOTE | 2024-01-03 15:17 | DVHPN ---
DATE: 01/03/2024 ATTENDING PHYSICIAN: Jeremías Gar MD. SUBJECTIVE: The patient is currently walking in the room. He complains that when he exercises, index finger usually hurts for about 4-5 hours on the ventral aspect of the middle phalanx area. He states it is still swollen and he is still having a hard time moving it because of the tightness. Denies any cough, chest pain, shortness of breath nor fever. OBJECTIVE: VITAL SIGNS: His temperature is 97.9 with a blood pressure of 105/62, heart rate of 74, respiratory rate of 18, O2 sat is 98% on room air. HEART: S1, S2 regular. No click, murmur or gallop. LUNGS: Good equal air exchange bilateral, clear to auscultation. ABDOMEN: Soft, nondistended, nontender. Bowel sounds positive, with no mass, guarding or rebound. EXTREMITIES: Again, right index finger shows some moderate swelling with some mild erythema and some marked decreased range of motion. Today, it seems somewhat mildly tender to touch. ASSESSMENT: * Cellulitis/osteomyelitis, right index finger. * Anxiety. PLAN: We will continue with the vancomycin and the cefepime for the osteomyelitis. Zofran for nausea and vomiting, [place] for pain, Colace for constipation and we will continue amitriptyline for the anxiety. MD CLAU Caruso/ZHANG TID: [id number] RECEIPT: [id number]
[2024-01-04] VITALS (7 sets, daily range): BP systolic 106–136; BP diastolic 68–93; PULSE 66–97; RESP 17–20; TEMP 97.5–98.3; O2SAT 95–100
[2024-01-04 10:44] LABS: Chloride 106 mmol/L (98-107); Potassium 4.5 mmol/L (3.5-5.1); Sodium 140 mmol/L (136-145)
[2024-01-04 10:45] LABS: Anion Gap 3 (5-15); Carbon Dioxide 31 mmol/L (20-30)
[2024-01-04 10:46] LABS: Calcium 10.2 mg/dL (8.7-10.4)
[2024-01-04 10:50] LABS: Glucose 94 mg/dL (74-106)
[2024-01-04 10:51] LABS: BUN/Creatinine Ratio 11.2 (10.0-20.0); Blood Urea Nitrogen 11 mg/dL (9-23)
--- NOTE | 2024-01-04 18:59 | DVHPN ---
DATE: 01/04/2024 ATTENDING PHYSICIAN: Dr. Jeremías Gar. SUBJECTIVE: The patient again has been transferred to a private room. He is sitting up in bed. He informs me that his meals are now more or large in quantity and for which he is satisfied. He states he has been ambulating couple times a day. He states he continues to exercise his right index finger, though he continues to have pain, the pain is not as severe. He denies any cough, shortness of breath, chest pain nor fever, nausea, vomiting. OBJECTIVE: VITAL SIGNS: His temperature is 98.1 with a blood pressure 136/68, a heart rate of 90, respiratory rate 17, O2 sat 98% on room air. HEART: S1, S2 regular. No click, murmur or gallop. LUNGS: Good equal air exchange bilateral, clear to auscultation. ABDOMEN: Soft, nondistended, nontender. Bowel sounds are positive. There is no mass, guarding or rebound. NEUROLOGIC: He is awake, alert, oriented x4 without focal deficits. EXTREMITIES: Right index finger continues to show mild to moderate swelling. He still exhibits decreased range of motion and there is still some mild diffuse erythema as well as warmth to the touch. LABORATORY DATA: Sodium 140, potassium 4.5, BUN 11, creatinine 0.98, glucose of 94. Hepatitis panel, hepatitis A, B and C are all negative. ASSESSMENT: * Cellulitis/osteomyelitis, right index finger. * Anxiety. PLAN: We will continue with [place] for pain and Zofran for nausea and vomiting. Vancomycin and cefepime for the osteomyelitis. Colace for constipation. Amitriptyline for the anxiety. MD CLAU Caruso/EPIFANIO TID: [id number] RECEIPT: [id number]
[2024-01-04] MEDS: VANCOMYCIN 1GM/200ML PREMIX 200 ML IV SCH (22:06)
[2024-01-05] VITALS (9 sets, daily range): BP systolic 111–148; BP diastolic 64–98; PULSE 64–89; RESP 16–22; TEMP 97.7–99; O2SAT 96–99
--- NOTE | 2024-01-05 17:11 | DVHPN ---
DATE: 01/05/2024 ATTENDING PHYSICIAN: Dr. Jeremías Gar. SUBJECTIVE: The patient is sitting up in bed. He just completed his lunch in which he finished the tray, 100% of the tray, even after receiving extra servings. He is going to be here at least 6 weeks. He needs to be careful about increasing his calories, but not been active. He denies any pain in the finger at this time. States he still remains a little bit swollen and it does hurt when he tries to move it too much. Denies any cough, chest pain or shortness of breath. OBJECTIVE: VITAL SIGNS: His temperature is 98.6 with a blood pressure 115/76, heart rate 72, respiratory rate of 18, O2 sats 99% on room air. HEART: S1, S2 regular. No click, murmur or gallop. LUNGS: Good equal air exchange bilateral, clear to auscultation. ABDOMEN: Soft, nondistended, nontender. Bowel sounds positive. No mass, guarding or rebound. NEUROLOGIC: He is awake, alert, oriented x 4 without focal deficits. EXTREMITIES: Right index remains moderately swollen with marked decreased range of motion. There seems to be tenderness on palpation. He is neurovascularly intact. ASSESSMENT: * Cellulitis/osteomyelitis of the right index finger. * Anxiety. PLAN: We will continue with the vancomycin and cefepime for the osteomyelitis, Colace for constipation, [place] for pain, Zofran for nausea and vomiting, Amitriptyline for anxiety and the patient continues to ambulate daily and shower a couple times a week. MD CLAU Caruso/PAO TID: [id number] RECEIPT: [id number]
[2024-01-06 05:00] VITALS: BP 119/68; PULSE 62; TEMP 98.6; O2SAT 97
[2024-01-06 06:49] LABS: Anion Gap 10 (5-15); Carbon Dioxide 23 mmol/L (20-30); Chloride 105 mmol/L (98-107); Potassium 4.2 mmol/L (3.5-5.1); Sodium 138 mmol/L (136-145)
[2024-01-06 06:50] LABS: Calcium 9.9 mg/dL (8.7-10.4)
[2024-01-06 06:55] LABS: Blood Urea Nitrogen 15 mg/dL (9-23); Glucose 97 mg/dL (74-106)
[2024-01-06 08:30] VITALS: RESP 18; O2SAT 97
[2024-01-06 09:00] VITALS: BP 115/79; PULSE 97; RESP 18; TEMP 97.7; O2SAT 96
--- NOTE | 2024-01-06 09:37 | DVHPN2 ---
Subjective Seen and examined at bedside, COnt Abx. Monitor renal function Reviewed: Care Plan, H&P, Labs, Medications Changes from previous H/P or p: No Changes General: Per HPI Eyes: No Pain, No Vision change, No Conjunctivae inflammation, No Eyelid inflammation, No Other, No Redness ENT: No Ear pain, No Ear discharge, No Nose pain, No Nose discharge, No Nose congestion, No Mouth pain, No Mouth swelling, No Throat pain, No Throat swelling, No Other Cardiovascular: No Chest Pain, No Palpitations, No Orthopnea, No Paroxysmal Noc. Dyspnea, No Edema, No Lt Headedness, No Other Respiratory: No Cough, No Dry, No Shortness of breath, No SOB with excertion, No Wheezing, No Hemoptysis, No Pleuritic Pain, No Sputum, No Other Gastrointestinal: No Nausea, No Vomiting, No Abdominal Pain, No Diarrhea, No Constipation, No Melena, No Hematochezia, No Other Genitourinary: No Dysuria, No Frequency, No Incontinence, No Hematuria, No Retention, No Other Musculoskeletal: other (right index finger pain and swelling); No neck pain, No shoulder pain, No arm pain, No back pain, No hand pain, No leg pain, No foot pain Skin: No Rash, No Lesions, No Jaundice, No Bruising, No Other Objective Vitals Vital Signs Date Time Temp Pulse Resp B/P (MAP) Pulse Ox O2 Delivery O2 Flow Rate FiO2 01/06/24 05:00 98.6 62 119/68 (85) 97 98.6 01/05/24 21:00 17 01/05/24 20:00 Room Air* 0 21 Intake/Output Intake and Output 01/06/24 07:00 Intake Total 3650 ml Output Total 5250 ml Balance -1600 ml Intake Oral 3200 ml IV Total 450 ml Output Urine Total 5250 ml # Bowel Movements 1 General Appearance: Alert, Oriented X3, Cooperative, No acute distress HEENT: Atraumatic, PERRLA Lungs: Clear to auscultation Cardiovascular: Normal S1, Normal S2 Abdomen: Normal bowel sounds Rectal: Normal inspection Extremities: Other (right index finger mild swelling) Neuro: Normal gait, Normal speech Psych/Mental Status: Mental status NL, Mood NL Medications Current Medications Medications Dose Ordered Sig/Susan Route Start Time Stop Time Status Last Admin Dose Admin Vancomycin HCl 0 ml @ 0 mls/hr UD IV 12/28/23 22:30 Ondansetron HCl 4 mg Q4HP PRN IV 12/28/23 22:30 Docusate Sodium 100 mg BIDPRN PRN PO 12/28/23 22:30 Acetaminophen 650 mg Q6HP PRN PO 12/28/23 22:30 Nitroglycerin 0.4 mg Q5MINP PRN SL 12/28/23 22:30 Dextrose/Sodium Chloride 1,000 ml @ 75 mls/hr [id number] IV 12/29/23 05:30 01/05/24 08:31 75 MLS/HR Cefepime HCl 50 ml @ 12.5 mls/hr Q8HR IV 12/29/23 14:00 01/06/24 05:07 12.5 MLS/HR Acetaminophen/ Hydrocodone Bitart 1 tab Q4HP PRN PO 12/31/23 15:30 Amitriptyline HCl 50 mg HS PO 12/31/23 22:00 01/05/24 21:59 50 MG Fluticasone Propionate 50 mcg Q12HR EACHNOSTRI 12/31/23 22:00 01/05/24 21:51 50 MCG Vancomycin HCl 200 ml @ 200 mls/hr Q10H IV 01/04/24 22:00 01/06/24 03:41 200 MLS/HR Laboratory Results Laboratory Tests 12/29/23 06:44 01/06/24 05:50 Chemistry Test 01/06/24 05:50 Calcium Level 9.9 mg/dL (8.7-10.4) Microbiology Microbiology Date/Time Source Procedure Growth Status 12/29/23 06:00 Nose MRSA Screen - Final Complete Assessment/Plan Assessment/Plan * Cellulitis/osteomyelitis of the right index finger.- Cont Vanco and Cefepime, monitor renal function * Anxiety * DVT Prop- Lovenox Subq Plan discussed with: Patient My Orders Orders - TIMOTHY CABA MD Procedure Category Date Status Time Renal Function Test LAB 01/07/24 Verified 07:00 Renal Function Test LAB 01/08/24 Verified 07:00 Renal Function Test LAB 01/09/24 Verified 07:00 Date of Service: Jan 06, 2024 Billing Provider: TIMOTHY CABA MD Common Visit Codes: [id number] INP/OBS CARE(MOD) TIMOTHY CABA MD Jan 06, 2024 09:37
[2024-01-06 13:10] VITALS: BP 110/78; PULSE 98; RESP 18; TEMP 98; O2SAT 97
[2024-01-06] MEDS: ENOXAPARIN SOD 40 MG/0.4 ML SYRINGE SC SCH (14:09)
[2024-01-06 17:30] VITALS: BP 127/84; PULSE 75; RESP 16; TEMP 97.6; O2SAT 98
[2024-01-06 21:00] VITALS: BP 127/76; PULSE 95; RESP 20; TEMP 98.2; O2SAT 96
[2024-01-07 01:00] VITALS: BP 110/68; PULSE 67; RESP 20; TEMP 97.8; O2SAT 99
[2024-01-07 05:00] VITALS: BP 104/62; PULSE 69; RESP 19; TEMP 97.5; O2SAT 98
[2024-01-07 06:06] LABS: Potassium 3.9 mmol/L (3.5-5.1)
[2024-01-07 06:07] LABS: Calcium 9.5 mg/dL (8.7-10.4)
[2024-01-07 06:12] LABS: BUN/Creatinine Ratio 14.2 (10.0-20.0)
[2024-01-07 06:14] LABS: Albumin 4.1 g/dL (3.2-4.8); Phosphorus 3.9 mg/dL (2.4-5.1)
[2024-01-07 08:52] VITALS: BP 105/54; PULSE 68; RESP 18; TEMP 98.3; O2SAT 100
[2024-01-07 13:00] VITALS: BP 131/73; PULSE 72; RESP 18; TEMP 98; O2SAT 98
[2024-01-07 17:00] VITALS: BP 138/68; PULSE 80; RESP 14; TEMP 98.5; O2SAT 98
--- NOTE | 2024-01-07 20:12 | DVHPN ---
DATE: 01/07/2024 ATTENDING PHYSICIAN: Jeremías Gar MD. SUBJECTIVE: Sitting up in bed, watching TV. He is comfortable, he is in no active distress. He is in good spirits. He is smiling. He denies any new complaints. He states he still has some limited range of motion, though it is improving. Says he continues to exercise his finger daily. He denies any cough, shortness of breath, fever. OBJECTIVE: VITAL SIGNS: His temperature is 98 with a blood pressure 131/73, heart rate 72, respiratory rate of 18, O2 sat 98% on room air. HEART: S1, S2 regular. No click, murmur or gallop. LUNGS: Good equal air exchange bilateral, clear to auscultation. ABDOMEN: Soft, nondistended, nontender. Bowel sounds positive. No mass, guarding or rebound. NEUROLOGIC: He is awake, alert, oriented x 4 without focal deficits. EXTREMITIES: Right index finger shows some mild to moderate swelling with moderate decreased range of motion. Slightly warm to the touch, but he is neurovascularly intact distally. ASSESSMENT: * Cellulitis/osteomyelitis of the right index finger. * Anxiety. PLAN: We will continue with the Lovenox for DVT prophylaxis, [place] for pain, Zofran for nausea and vomiting, amitriptyline for anxiety and vancomycin and cefepime for the osteomyelitis. Again, I have encouraged the patient to ambulate as much as possible. MD CLAU Caruso/PETEY TID: [id number] RECEIPT: [id number]
[2024-01-07 21:00] VITALS: BP 126/78; PULSE 89; RESP 16; TEMP 98.3; O2SAT 97
[2024-01-08 01:00] VITALS: BP 115/67; PULSE 68; RESP 16; TEMP 98.2; O2SAT 98
[2024-01-08 05:00] VITALS: BP 113/71; PULSE 73; RESP 16; TEMP 97.6; O2SAT 99
[2024-01-08 07:25] LABS: Potassium 4.6 mmol/L (3.5-5.1)
[2024-01-08 07:26] LABS: Calcium 9.7 mg/dL (8.7-10.4)
[2024-01-08 07:31] LABS: BUN/Creatinine Ratio 13.7 (10.0-20.0)
[2024-01-08 07:33] LABS: Albumin 4.3 g/dL (3.2-4.8); Phosphorus 4.1 mg/dL (2.4-5.1)
[2024-01-08 08:54] VITALS: BP 123/77; PULSE 73; RESP 16; TEMP 97.8; O2SAT 98
--- NOTE | 2024-01-08 12:51 | DVHPN ---
DATE: 01/08/2024 ATTENDING PHYSICIAN: Jeremías Gar MD. SUBJECTIVE: The patient is currently ambulating in hallways with officers in escort. He again is smiling. He states he is doing great, though the finger has not improved much, but he currently does not have any pain, continues to have some decreased range of motion, but he denies any chest pain, cough, shortness of breath nor fever. OBJECTIVE: VITAL SIGNS: His temperature is 97.8 with a blood pressure 123/77, heart rate of 73, respiratory rate 16, O2 sat 98% on room air. HEART: S1, S2 regular. No click, murmur or gallop. LUNGS: Good equal air exchange bilateral, clear to auscultation. ABDOMEN: Soft, nondistended, nontender. Bowel sounds positive. There is no mass, guarding or rebound. NEUROLOGIC: He is awake, alert and oriented x 4. No focal deficits. EXTREMITIES: Right index shows moderate swelling. There is some decreased range of motion. It is slightly warm to the touch. He is neurovascularly intact. LABORATORY DATA: Sodium 138, potassium 4.6, BUN 14, creatinine 1.02 and a sugar of 95. ASSESSMENT: * Cellulitis/osteomyelitis, right index finger. * Anxiety. PLAN: We will continue with the vancomycin and cefepime for the osteomyelitis, Lovenox for DVT prophylaxis, [place] for pain, Zofran for nausea and vomiting and metoprolol for anxiety. MD CLAU Caruso/CHARLENE/JANEL TID: [id number] RECEIPT: [id number]
[2024-01-08 13:00] VITALS: BP 134/80; PULSE 99; RESP 14; TEMP 97.4; O2SAT 98
[2024-01-08] MEDS: VANCOMYCIN 1GM/200ML PREMIX 200 ML IV SCH (13:48)
[2024-01-08 17:00] VITALS: BP 119/79; PULSE 93; RESP 16; TEMP 98.3; O2SAT 97
[2024-01-08 21:00] VITALS: BP 124/76; PULSE 105; RESP 19; TEMP 98.3; O2SAT 96
[2024-01-09] VITALS (10 sets, daily range): BP systolic 112–141; BP diastolic 55–91; PULSE 59–95; RESP 18–20; TEMP 97.9–98.6; O2SAT 96–100
[2024-01-09 06:35] LABS: Calcium 9.8 mg/dL (8.7-10.4); Chloride 106 mmol/L (98-107); Potassium 4.3 mmol/L (3.5-5.1); Sodium 138 mmol/L (136-145)
[2024-01-09 06:36] LABS: Anion Gap 4 (5-15); Carbon Dioxide 28 mmol/L (20-30)
[2024-01-09 06:41] LABS: BUN/Creatinine Ratio 13.5 (10.0-20.0); Blood Urea Nitrogen 15 mg/dL (9-23); Glucose 95 mg/dL (74-106)
[2024-01-09] MEDS: BUDESONIDE (INHALATION) 0.5 MG/2 ML NEB NEB SCH (17:50)
--- NOTE | 2024-01-09 19:17 | DVHPN ---
DATE: 01/09/2024 ATTENDING PHYSICIAN: Dr. Jeremías Gar. SUBJECTIVE: The patient has just woken up from sleep, though he seem very comfortable, in no active distress. He states the finger is doing "okay", per patient, it still shows some swelling and some decreased range of motion, but he is getting more motion with less pain. Denies any cough, shortness of breath nor fever. OBJECTIVE: VITAL SIGNS: His temperature is 98.6 with a blood pressure 123/78, heart rate of 69, respiratory rate of 20, O2 sats 100% on room air. HEART: S1, S2 regular. No click, murmur or gallop. LUNGS: Good equal air exchange bilateral, clear to auscultation. ABDOMEN: Soft, nondistended, nontender. Bowel sounds are positive. There is no mass, guarding or rebound. NEUROLOGIC: Awake, alert, oriented x 4. No focal deficits. EXTREMITIES: Right index finger shows moderate swelling, moderate decreased range of motion, mild warmth to the touch. Neurovascular intact distally. LABORATORY DATA: We have sodium 138, potassium 4.3, BUN 15, creatinine 1.1. ASSESSMENT: * Cellulitis/osteomyelitis, right index finger. * Anxiety. * History of asthma. PLAN: We will restart the patient on Advair and p.r.n. albuterol for his asthma. We will continue with cefepime and vancomycin for the osteomyelitis, Zofran for nausea and vomiting [place] for pain, Lovenox for DVT prophylaxis and we will continue with amitriptyline for anxiety. MD CLAU Caruso/PETEY TID: [id number] RECEIPT: [id number]
[2024-01-10] VITALS (11 sets, daily range): BP systolic 98–120; BP diastolic 53–88; PULSE 62–96; RESP 16–18; TEMP 97.6–98.6; O2SAT 93–100
[2024-01-10 07:02] LABS: Anion Gap 8 (5-15); Carbon Dioxide 24 mmol/L (20-30); Chloride 107 mmol/L (98-107); Sodium 139 mmol/L (136-145)
[2024-01-10 07:03] LABS: Calcium 9.8 mg/dL (8.7-10.4)
[2024-01-10 07:08] LABS: BUN/Creatinine Ratio 12.4 (10.0-20.0); Blood Urea Nitrogen 11 mg/dL (9-23); Glucose 87 mg/dL (74-106)
[2024-01-10] MEDS: ALBUTEROL SULF 2.5 MG/0.5ML(0.5%) NEB SOLN NEB PRN (09:56)
--- NOTE | 2024-01-10 20:45 | DVHPN ---
DATE: 01/10/2024 ATTENDING PHYSICIAN: Dr. Jeremías Gar. SUBJECTIVE: The patient is sitting up in bed. He is in good spirits. He is comfortable, he is in no active distress. Denies any new complaints. No untoward events have been noted. Specifically, denies any cough, shortness of breath nor fever. OBJECTIVE: VITAL SIGNS: Temperature is 98 with blood pressure 120/79, heart rate of 90, respiratory rate of 18, O2 sat 98% on room air. PE is without changes. LABORATORY DATA: We have Sodium of 139, potassium of 4, BUN 11, creatinine 0.89 and glucose of 87. ASSESSMENT: * Cellulitis/osteomyelitis, right index finger. * Anxiety. * History of asthma. PLAN: We will continue with the vancomycin and cefepime for the osteomyelitis, [place] for pain, Zofran for nausea and vomiting, Lovenox for DVT prophylaxis, amitriptyline for anxiety, albuterol and Pulmicort for asthma. Again, encouraged the patient to ambulate and shower p.r.n. MD CLAU Caruso/PETEY TID: [id number] RECEIPT: [id number]
[2024-01-11] VITALS (12 sets, daily range): BP systolic 104–124; BP diastolic 64–82; PULSE 68–107; RESP 16–20; TEMP 97.9–98.5; O2SAT 97–100
--- NOTE | 2024-01-11 21:24 | DVHPN ---
DATE: 01/11/2024 ATTENDING PHYSICIAN: Dr. Jeremías Gar. SUBJECTIVE: The patient is in good spirits. He is sitting up in bed. He is comfortable. He is in no active distress. He again shows me his finger and his range of motion. He says he still has not gone back to normal and continues to be slightly swollen. He does complain of intermittent pain, though none at this time. No untoward events have been noted. OBJECTIVE: VITAL SIGNS: His temperature is 98.5 with blood pressure 116/74, heart rate 85, respiratory rate 16, O2 sats 99% on room air. HEART: S1, S2 regular. No click, murmur or gallop. LUNGS: Good equal air exchange bilateral, clear to auscultation. ABDOMEN: Soft, nondistended, nontender. Bowel sounds positive. No mass, guarding or rebound. EXTREMITIES: Right index finger shows moderate swelling with moderate decreased range of motion. It is slightly warm to the touch, but neurovascularly intact distally. ASSESSMENT: * Cellulitis/osteomyelitis, right index finger. * Anxiety. * History of asthma. PLAN: We will continue with Lovenox for DVT prophylaxis, albuterol and Pulmicort for asthma, vancomycin and cefepime for the osteomyelitis, [place] for pain and Zofran for nausea and vomiting. Again, I have instructed the patient to ambulate as much as possible. Jeremías Gar MD JV/HEM TID: [id number] RECEIPT: [id number]
[2024-01-12] VITALS (14 sets, daily range): BP systolic 105–129; BP diastolic 70–88; PULSE 75–109; RESP 16–20; TEMP 97.6–99; O2SAT 96–100
--- NOTE | 2024-01-12 20:39 | DVHPN ---
DATE: 01/12/2024 ATTENDING PHYSICIAN: Dr. Jeremías Gar. SUBJECTIVE: The patient is sitting up in bed. He is eating lunch. He has a very voracious appetite. He denies any complaints. No untoward events. He still has pain, but his range of motion, he thinks, is improving with regard to right index finger. He continues to ambulate in the hallway. OBJECTIVE: VITAL SIGNS: His temperature is 98.1 with a blood pressure of 115/77, heart rate of 89, respiratory rate 16, O2 sats 100% on room air. HEART: S1, S2 regular. No click, murmur or gallop. LUNGS: Good equal air exchange bilateral, clear to auscultation. ABDOMEN: Soft, nondistended, nontender. Bowel sounds positive. No mass, guarding or rebound. NEUROLOGIC: Awake, alert, oriented x 4. No focal deficit. EXTREMITIES: Right index finger shows moderate swelling with some mild to moderate decreased range of motion. It is slightly warm to the touch, minimal tenderness. LABORATORY DATA: Creatinine is 1.16 with a GFR of 84. ASSESSMENT: * Cellulitis/osteomyelitis, right index finger. * Anxiety. * History of asthma. PLAN: We will reorder follow up MRI to determine if there is progression of osteomyelitis versus improvement. In the meantime, we will continue with the cefepime and vancomycin for the osteomyelitis, [place] for pain, Zofran for nausea and vomiting, Lovenox for DVT prophylaxis, albuterol and Pulmicort for asthma. MD CLAU Caruso/PETEY TID: [id number] RECEIPT: [id number]
[2024-01-13] VITALS (11 sets, daily range): BP systolic 104–132; BP diastolic 62–83; PULSE 74–98; RESP 16–22; TEMP 97.8–98.7; O2SAT 97–100
--- NOTE | 2024-01-13 23:01 | DVHPN ---
DATE: 01/13/2024 SUBJECTIVE: No new complaints. No untoward events noted. Specifically, he still complains of intermittent pain to the finger with moderate swelling and decreased range of motion. OBJECTIVE: VITAL SIGNS: His temperature is 97.8 with a blood pressure 104/62, heart rate of 98, respiratory rate 20, O2 sat 98% on room air. EXTREMITIES: Right index finger shows moderate swelling with some arru-va-dthunqze decreased range of motion without any erythema. ASSESSMENT: * Cellulitis/osteomyelitis, right index finger. * Anxiety. * History of asthma. PLAN: We will continue with the vancomycin and cefepime for the osteomyelitis, Zofran for nausea and vomiting, Lovenox for DVT prophylaxis, [place] for pain, albuterol and Pulmicort for asthma. We are awaiting performance of MRI to followup and determine if there is progression versus improvement of the osteomyelitis. MD CLAU Caruso/HAI TID: [id number] RECEIPT: [id number]
[2024-01-14] VITALS (13 sets, daily range): BP systolic 98–122; BP diastolic 58–78; PULSE 72–97; RESP 16–78; TEMP 97.6–98.7; O2SAT 78–100
--- NOTE | 2024-01-14 16:31 | DVHPN ---
DATE: 01/14/2024 ATTENDING PHYSICIAN: Jeremías Gar MD SUBJECTIVE: The patient is sitting up on the side of the bed. He is in very good spirits. He is comfortable. He is in no active distress. He states that everything is pretty much the same. He is still working on range of motion and he is still getting intermittent pain. He has not had any chest pain, cough or shortness of breath. OBJECTIVE: VITAL SIGNS: His temperature is 97.6 with a blood pressure 107/64, heart rate 86, respiratory rate of 16, O2 sats 100% on room air. HEART: S1, S2 regular. No click, murmur or gallop. LUNGS: Good equal air exchange bilateral, clear to auscultation. ABDOMEN: Soft, nondistended, nontender. Bowel sounds are positive. No mass, guarding or rebound. NEUROLOGIC: He is awake, alert, oriented x 4 without focal deficits. EXTREMITIES: Right index finger shows [id number]-rp-urhmyrna swelling and there is moderate decreased range of motion. It is slightly warm to the touch. ASSESSMENT: * Cellulitis/osteomyelitis, right index finger. * Anxiety. * Asthma. PLAN: We will continue with cefepime and vancomycin for the osteomyelitis, [place] for pain, Zofran for nausea and vomiting, albuterol and Pulmicort for asthma and Lovenox for DVT prophylaxis. Again, we are awaiting performance of MRI for followup to determine whether there is progression versus improvement. MD CLAU Caruso/CHARLENE TID: [id number] RECEIPT: [id number]
[2024-01-15] VITALS (13 sets, daily range): BP systolic 100–146; BP diastolic 69–82; PULSE 59–91; RESP 16–20; TEMP 97.6–98.9; O2SAT 96–100
[2024-01-15 07:11] LABS: Basophils # (auto) 0 10 ^3/uL (0-0.2); Basophils % (auto) 0.4 % (0.0-2.0); Eosinophils # (auto) 0.4 10 ^3/uL (0-0.8); Eosinophils % (auto) 8.2 % (0.0-7.0); Hematocrit 40.2 % (41.0-53.0); Lymphocytes # (auto) 1.6 10 ^3/uL (0.4-5.4); Lymphocytes % (auto) 33.6 % (10.0-50.0); Mean Corpuscular Hemoglobin 32.6 pg (28.0-32.0); Mean Corpuscular Hgb Conc. 34.8 g/dL (32.0-36.0); Mean Corpuscular Volume 93.8 fL (80.0-100.0); Monocytes # (auto) 0.7 10 ^3/uL (0-1.3); Monocytes % (auto) 13.7 % (0.0-12.0); Neutrophils # (auto) 2.1 10 ^3/uL (1.6-8.6); Neutrophils % (auto) 44.1 % (37.0-80.0); Nucleated Red Blood Cells % 0.1 %; Platelet Count (auto) 237 10^3/uL (140-450); Red Blood Cells 4.28 10^6/uL (4.5-5.90); Red Cell Distribution Width 13.5 % (11.8-14.3); White Blood Cell 4.8 10^3/uL (4.4-10.8)
[2024-01-15 07:44] LABS: Alanine Aminotransferase 63 U/L (7-40); Albumin 4.1 g/dL (3.2-4.8); Alkaline Phosphatase 65 U/L (46-116); Anion Gap 9 (5-15); Aspartate Aminotransferase 20 U/L (13-40); BUN/Creatinine Ratio 15.5 (10.0-20.0); Bilirubin, Total 0.4 mg/dL (0.2-1.0); Blood Urea Nitrogen 15 mg/dL (9-23); Calcium 9.5 mg/dL (8.7-10.4); Carbon Dioxide 23 mmol/L (20-30); Chloride 107 mmol/L (98-107); Glucose 90 mg/dL (74-106); Potassium 3.8 mmol/L (3.5-5.1); Sodium 139 mmol/L (136-145); Total Protein 6.5 g/dL (5.7-8.2)
--- NOTE | 2024-01-15 21:43 | DVHPN ---
DATE: 01/15/2024 ATTENDING PHYSICIAN: Dr. Jeremías Gar SUBJECTIVE: The patient is sitting up. He is awake, alert and smiling. He is comfortable, no active distress. Currently, he denies any pain. No untoward events have been noted. OBJECTIVE: VITAL SIGNS: His temperature is 98 with a blood pressure 120/72, heart rate 77, respiratory rate 20, O2 sats 98% on room air. HEART: S1, S2 regular. No click, murmur or gallop. LUNGS: Good equal air exchange bilateral, clear to auscultation. ABDOMEN: Soft, nondistended, nontender. Bowel sounds positive. No mass, guarding or rebound. NEUROLOGIC: Awake, alert and oriented x4 without focal deficits. EXTREMITIES: Right index finger shows mild to moderate swelling with moderate decreased range of motion, nontender. No erythema. ASSESSMENT: * Cellulitis/osteomyelitis of right index finger. * Anxiety. * Asthma. PLAN: We will continue with the Lovenox for DVT prophylaxis, vancomycin and cefepime for the osteomyelitis and cellulitis of the index finger, albuterol and Pulmicort for asthma, [place] for pain and Zofran for nausea and vomiting. Again, we are awaiting to the performance of the MRI. MD CLAU Caruso/ARTURO TID: [id number] RECEIPT: [id number]
[2024-01-16] VITALS (11 sets, daily range): BP systolic 108–129; BP diastolic 64–86; PULSE 64–100; RESP 17–20; TEMP 98–98.6; O2SAT 96–100
--- NOTE | 2024-01-16 13:24 | DVH ---
CLINICAL INFORMATION: 38 years old, Male; follow-up osteomyelitis. TECHNIQUE: Multi sequence multi planar MRI images of the right hand were obtained without IV contrast . COMPARISON: MRI RT HAND MRI NON JOINT on DOS: 01/01/24. Previous MRI exams dated 01/01/2024, 12/12/19, and 11/28/2023. FINDINGS: Moderate soft tissue swelling and subcutaneous edema in the 2nd digit, greatest near the PI P joint, likely correlating with reported clinical history of cellulitis. There is excess fluid in th e PIP joint. Infection within the joint not excluded. Prominent t2/stir hyperintense signal in the pr oximal and middle phalanges with T1 hypointense signal at the distal aspect of the proximal phalanx, appears slightly greater compared to the most recent MRI exam. Minimal T1 hypointense signal in the b ase of the middle phalanx, unchanged. No other significant interval change. IMPRESSION: 1. Soft tissue inflammatory changes in the 2nd digit consistent with cellulitis in the appropriate cl inical setting, minimally changed compared to the most recent MRI. Fluid signal in the joint, also m inimally changed. Septic arthritis not excluded. 2. The extent of the T1 hypointense signal at the distal aspect of the proximal phalanx appears sligh tly greater compared to the most recent MRI, possibly worsening osteomyelitis in this location. Minim al T1 hypointense signal at the base of the middle phalanx is unchanged.
[2024-01-16] MEDS: VANCOMYCIN 1.25GM/250ML 250 ML IV SCH (13:54)
[2024-01-17] VITALS (11 sets, daily range): BP systolic 97–123; BP diastolic 62–83; PULSE 65–84; RESP 16–20; TEMP 97.4–98.2; O2SAT 96–100
--- NOTE | 2024-01-17 01:06 | DVHPN ---
DATE: 01/16/2024 ATTENDING PHYSICIAN: Dr. Jeremías Gar SUBJECTIVE: The patient is resting comfortably. He is in no active distress. He denies any new complaints and no untoward events have been noted. Specifically, he denies any worsening of pain. He denies any chest pain, cough, shortness of breath or fever. OBJECTIVE: VITAL SIGNS: His temperature is 98.4 with a blood pressure 120/75, heart rate 85, respiratory rate 18, O2 sat 97% on room air. HEART: S1, S2 regular. No click, murmur or gallop. LUNGS: Good equal air exchange bilateral, clear to auscultation. ABDOMEN: Soft, nondistended, nontender. Bowel sounds positive. There is no mass, guarding or rebound. NEUROLOGIC: Awake, alert, oriented x 4 without focal deficits. EXTREMITIES: Right index finger continues to show mild to moderate swelling with moderate decreased range of motion, currently is nontender. ASSESSMENT: * Cellulitis/osteomyelitis of right index finger. * Anxiety. * Asthma. PLAN: We will continue with the vancomycin and cefepime for the osteomyelitis and cellulitis of the index finger. Lovenox for DVT prophylaxis, [place] for pain, Zofran for nausea and vomiting, albuterol and Pulmicort for his asthma. I discussed the case with ____ MRI, apparently our order on our computer did not register with their computer in radiology that is why his MRI has not yet been performed. He said he will do him today. MD CLAU Caruso/EPIFANIO/MARCELINA TID: [id number] RECEIPT: [id number]
[2024-01-17 07:17] LABS: Anion Gap 10 (5-15); Carbon Dioxide 22 mmol/L (20-30); Chloride 107 mmol/L (98-107); Potassium 3.9 mmol/L (3.5-5.1); Sodium 139 mmol/L (136-145)
[2024-01-17 07:19] LABS: Calcium 9.9 mg/dL (8.7-10.4)
[2024-01-17 07:24] LABS: BUN/Creatinine Ratio 13.4 (10.0-20.0); Blood Urea Nitrogen 13 mg/dL (9-23); Glucose 87 mg/dL (74-106)
[2024-01-17 09:04] LABS: Hepatitis B Surface Antigen Negative (Negative)
[2024-01-17 10:13] LABS: Hepatitis B Surface Antibody Negative (Negative)
[2024-01-17] MEDS: VANCOMYCIN 1GM/200ML PREMIX 200 ML IV SCH (16:27)
[2024-01-17] MEDS: cefTRIAXone 2GM/50ML D5W 50 ML IV SCH (18:11)
--- NOTE | 2024-01-17 23:14 | DVHPN ---
DATE: 01/17/2024 ATTENDING PHYSICIAN: Dr. Jeremías Gar SUBJECTIVE: The patient is sitting up in bed. He is watching TV. He is comfortable, no active distress. I informed him the results of the MRI, which shows possibly worsening proximal phalanx and the sense that the intensity might be a little bit greater, explained to him there is no mention of it spreading to other bones. Discussion with the patient regarding treatment, he clearly states that he is at this point not willing to have an amputation. That being the case, I explained to him it really does not make sense to transfer him then to higher level of care with a hand surgeon. I did explain that we will change his antibiotics and see if that can make a difference. OBJECTIVE: VITAL SIGNS: Temperature is 98.2 with a blood pressure 109/62, heart rate of 80, respiratory rate of 18, O2 sats 99% on room air. HEART: S1, S2 regular, without click, murmur or gallop. LUNGS: Good equal air exchange bilateral, clear to auscultation. ABDOMEN: Soft, benign. NEUROLOGIC: Awake, alert, oriented x 4. No focal deficits. EXTREMITIES: Right index shows mild to moderate swelling, no tenderness and normal temperature. LABORATORY DATA: We have sodium of 139, potassium 3.9, BUN 13, creatinine 0.97, GFR 104, and hepatitis C antibody is negative. MRI of the hand shows soft tissue inflammatory changes second digit consistent with cellulitis in the appropriate clinical setting, minimally changed compared to most recent MRI. Fluid signal in the joint also minimally changed. Septic arthritis not excluded to the extent of the T1 hypointense signal at the distal aspect of the proximal phalanx appears slightly greater compared to the most recent MRI, possibly worsening osteomyelitis. There is minimal T1 hypointense signal at the base of the middle phalanx, which is unchanged. ASSESSMENT: * Cellulitis, osteomyelitis, right index finger. * Anxiety. * Asthma. PLAN: We will continue with vancomycin. We will discontinue cefepime for the osteomyelitis and cellulitis. We will continue with Lovenox for DVT prophylaxis, [place] for pain and Zofran for nausea and vomiting and albuterol, Pulmicort for the asthma. We will continue with exercises in the finger and ambulation. MD CLAU Caruso/EPIFANIO TID: [id number] RECEIPT: [id number]
[2024-01-18] VITALS (10 sets, daily range): BP systolic 104–142; BP diastolic 61–78; PULSE 59–93; RESP 18–20; TEMP 97.7–98.7; O2SAT 95–98
[2024-01-18 06:58] LABS: Chloride 109 mmol/L (98-107); Sodium 137 mmol/L (136-145)
[2024-01-18 06:59] LABS: Anion Gap 4 (5-15); Carbon Dioxide 24 mmol/L (20-31)
[2024-01-18 07:00] LABS: Calcium 9.6 mg/dL (8.7-10.4)
[2024-01-18 07:05] LABS: BUN/Creatinine Ratio 15.3 (10.0-20.0); Blood Urea Nitrogen 15 mg/dL (9-23); Glucose 86 mg/dL (74-106)
--- NOTE | 2024-01-18 21:08 | DVHPN ---
DATE: 01/18/2024 ATTENDING PHYSICIAN: Dr. Jeremías Gar SUBJECTIVE: The patient is lying in bed. He is comfortable, in no active distress. No new complaints. No untoward events have been noted. Specifically, he denies any worsening of finger pain nor swelling. Denies any chest pain, cough, shortness of breath, nor fever. OBJECTIVE: VITAL SIGNS: His temperature is 97.7 with a blood pressure of 142/61, a heart rate 72, respiratory rate 20, O2 sats 98% on room air. HEART: S1, S2 regular. No click, murmur or gallop. LUNGS: Clear to auscultation. ABDOMEN: Soft, benign. NEUROLOGIC: He is awake, alert, oriented x4 without any focal deficit. EXTREMITIES: Right index finger shows aeie-uw-gmsxxdao swelling. It is nontender at this time, but he does show some decreased range of motion. LABORATORY DATA: We have a sodium of 137, potassium of 4, BUN 15, creatinine 0.98 with a glucose of 86. ASSESSMENT: * Cellulitis and osteomyelitis of right index finger. * Anxiety. * Asthma. PLAN: We will continue with Rocephin and vancomycin for the osteomyelitis and cellulitis of the right index finger. Continue with [place] for pain, Lovenox for DVT prophylaxis, Zofran for nausea and vomiting, and albuterol and Pulmicort for the asthma. MD CLAU Caruso/TIMOTEO TID: [id number] RECEIPT: [id number]
[2024-01-19] VITALS (12 sets, daily range): BP systolic 110–147; BP diastolic 61–90; PULSE 58–99; RESP 16–20; TEMP 97.6–98.8; O2SAT 96–100
[2024-01-19 07:02] LABS: Basophils # (auto) 0 10 ^3/uL (0-0.2); Basophils % (auto) 0.3 % (0.0-2.0); Eosinophils # (auto) 0.3 10 ^3/uL (0-0.8); Eosinophils % (auto) 5.5 % (0.0-7.0); Lymphocytes # (auto) 1.8 10 ^3/uL (0.4-5.4); Lymphocytes % (auto) 32.6 % (10.0-50.0); Mean Corpuscular Hemoglobin 33.2 pg (28.0-32.0); Mean Corpuscular Hgb Conc. 35.7 g/dL (32.0-36.0); Mean Corpuscular Volume 93.2 fL (80.0-100.0); Monocytes # (auto) 0.6 10 ^3/uL (0-1.3); Monocytes % (auto) 10.7 % (0.0-12.0); Neutrophils # (auto) 2.8 10 ^3/uL (1.6-8.6); Neutrophils % (auto) 50.9 % (37.0-80.0); Nucleated Red Blood Cells % 0.1 %; Platelet Count (auto) 248 10^3/uL (140-450); Red Blood Cells 4.51 10^6/uL (4.5-5.90); Red Cell Distribution Width 13.4 % (11.8-14.3); White Blood Cell 5.5 10^3/uL (4.4-10.8)
--- NOTE | 2024-01-19 12:02 | DVHPN ---
DATE: 01/19/2024 ATTENDING PHYSICIAN: Dr. Jeremías Gar. SUBJECTIVE: The patient is sitting up in bed. He seems to be in good spirits today. He is comfortable. He is in no active distress. He states that the finger feels the same as it did yesterday. Currently, not having any pain. He denies any cough, shortness of breath nor fever. He reiterates the fact that he does not want to have any surgical procedure done to the finger, be it amputation or removal of part of the bone. OBJECTIVE: VITAL SIGNS: His temperature is 97.6 with a blood pressure of 112/75, a heart rate of 58, respiratory rate of 18, O2 sat 99% on room air. HEART: S1, S2 regular. No click, murmur or gallop. LUNGS: Good equal air exchange bilateral, some crackles at bases. ABDOMEN: Soft, benign. EXTREMITIES: Right index finger continues to be iklg-sp-pxarwrebyq swollen, with normal temperature and slightly tender to the touch at the region of the proximal phalanx. LABORATORY DATA: WBC is 5.5 with a hemoglobin of 15 and a platelet 248, creatinine 1.09. ASSESSMENT: * Osteomyelitis/cellulitis of right index finger. * Asthma. * Anxiety. PLAN: We will continue with the vancomycin and Rocephin IV antibiotics for the osteomyelitis and cellulitis of the right index finger, Lovenox for DVT prophylaxis, [place] for pain, albuterol and Pulmicort for asthma and Zofran for nausea and vomiting. I instructed the patient to continue to ambulate as much as possible and work on range of motion of the right index finger. MD CLAU Caruso/ZHANG TID: [id number] RECEIPT: [id number]
[2024-01-20] VITALS (10 sets, daily range): BP systolic 110–139; BP diastolic 68–84; PULSE 71–95; RESP 16–20; TEMP 97.7–98.3; O2SAT 96–100
[2024-01-20 06:19] LABS: Basophils # (auto) 0 10 ^3/uL (0-0.2); Basophils % (auto) 0.2 % (0.0-2.0); Eosinophils # (auto) 0.2 10 ^3/uL (0-0.8); Eosinophils % (auto) 5.1 % (0.0-7.0); Hematocrit 42.5 % (41.0-53.0); Hemoglobin 14.8 g/dL (13.5-17.5); Lymphocytes # (auto) 1.9 10 ^3/uL (0.4-5.4); Lymphocytes % (auto) 39.7 % (10.0-50.0); Mean Corpuscular Hemoglobin 32.2 pg (28.0-32.0); Mean Corpuscular Hgb Conc. 34.7 g/dL (32.0-36.0); Mean Corpuscular Volume 92.8 fL (80.0-100.0); Monocytes # (auto) 0.6 10 ^3/uL (0-1.3); Monocytes % (auto) 13.3 % (0.0-12.0); Neutrophils % (auto) 41.7 % (37.0-80.0); Nucleated Red Blood Cells % 0.1 %; Platelet Count (auto) 252 10^3/uL (140-450); Red Blood Cells 4.58 10^6/uL (4.5-5.90); Red Cell Distribution Width 13.5 % (11.8-14.3); White Blood Cell 4.8 10^3/uL (4.4-10.8)
[2024-01-20] MEDS: VANCOMYCIN 1GM/200ML PREMIX 200 ML IV ONE (07:42)
--- NOTE | 2024-01-20 10:56 | DVHPN ---
DATE: 01/20/2024 ATTENDING PHYSICIAN: Dr. Jeremías Gar. SUBJECTIVE: The patient is sitting up. He just finished eating breakfast. He is comfortable. He is in no acute distress. He has no new complaints. No untoward events noted. OBJECTIVE: VITAL SIGNS: His temperature is 98.4 with a blood pressure of 127/90, heart rate of 89, respiratory rate 99% on room air. HEART: S1, S2 regular without click, murmur or gallop. LUNGS: Good equal air exchange bilateral. Continues to have crackles, left base. ABDOMEN: Soft, benign. EXTREMITIES: Right index finger continues to show some [id number] swelling with moderate decreased range of motion. LABORATORY DATA: We have WBC of 4.8, hemoglobin of 14.8 and platelets of 252. ASSESSMENT: * Osteomyelitis/cellulitis of right index finger. * Asthma. * Anxiety. PLAN: We will continue with the [place] for pain, Lovenox for DVT prophylaxis, Zofran for nausea and vomiting, Pulmicort and albuterol for asthma and vancomycin and Rocephin for osteomyelitis. MD CLAU Caruso/CHARLENE TID: [id number] RECEIPT: [id number]
[2024-01-21] VITALS (13 sets, daily range): BP systolic 97–154; BP diastolic 63–90; PULSE 54–87; RESP 18–24; TEMP 97.5–98.3; O2SAT 97–100
[2024-01-21 06:45] LABS: Basophils # (auto) 0 10 ^3/uL (0-0.2); Basophils % (auto) 0.2 % (0.0-2.0); Eosinophils # (auto) 0.3 10 ^3/uL (0-0.8); Eosinophils % (auto) 4.7 % (0.0-7.0); Hematocrit 42.1 % (41.0-53.0); Hemoglobin 14.6 g/dL (13.5-17.5); Mean Corpuscular Hemoglobin 32.6 pg (28.0-32.0); Mean Corpuscular Hgb Conc. 34.7 g/dL (32.0-36.0); Mean Corpuscular Volume 93.9 fL (80.0-100.0); Monocytes # (auto) 0.7 10 ^3/uL (0-1.3); Monocytes % (auto) 11.6 % (0.0-12.0); Neutrophils # (auto) 2.9 10 ^3/uL (1.6-8.6); Neutrophils % (auto) 49.5 % (37.0-80.0); Nucleated Red Blood Cells % 0.2 %; Platelet Count (auto) 235 10^3/uL (140-450); Red Blood Cells 4.48 10^6/uL (4.5-5.90); Red Cell Distribution Width 13.5 % (11.8-14.3); White Blood Cell 5.8 10^3/uL (4.4-10.8)
--- NOTE | 2024-01-21 19:20 | DVHPN ---
DATE: 01/21/2024 SUBJECTIVE: Again, the patient is seen sitting up in bed. He is watching TV and in conversation with the [employer] officers. He is comfortable. He is in no active distress. He is in good spirits today. He denies any new complaints and no untoward events have been noted. OBJECTIVE: VITAL SIGNS: His temperature is 98.1 with a blood pressure of 139/76, heart rate 54, respiratory rate of 20, O2 sats 98% on room air. HEART: S1, S2 regular. There is no click, murmur, or gallop. LUNGS: He continues to have rales at left base. No rhonchi, no wheezing. ABDOMEN: Soft, nondistended, nontender. Bowel sounds positive. No mass, guarding, or rebound. EXTREMITIES: Right index finger with mild to moderate swelling, decreased range of motion. It is cool to the touch but it has no erythema, nontender at this time. ASSESSMENT: * Osteomyelitis, cellulitis of right index finger. * Asthma. * Anxiety. PLAN: We will continue with the vancomycin and Rocephin for the osteomyelitis with Lovenox for DVT prophylaxis, [place] for pain, Zofran for nausea and vomiting, and albuterol, Pulmicort for asthma. Again, I encouraged the patient to ambulate and shower p.r.n. MD CLAU Caruso/HAI TID: [id number] RECEIPT: [id number]
[2024-01-22] VITALS (9 sets, daily range): BP systolic 103–118; BP diastolic 61–81; PULSE 61–98; RESP 17–20; TEMP 97.6–98.4; O2SAT 93–99
[2024-01-22 07:12] LABS: Basophils # (auto) 0 10 ^3/uL (0-0.2); Basophils % (auto) 0.2 % (0.0-2.0); Eosinophils # (auto) 0.3 10 ^3/uL (0-0.8); Eosinophils % (auto) 4.9 % (0.0-7.0); Hematocrit 41.9 % (41.0-53.0); Hemoglobin 14.7 g/dL (13.5-17.5); Lymphocytes % (auto) 36.2 % (10.0-50.0); Mean Corpuscular Hemoglobin 32.8 pg (28.0-32.0); Mean Corpuscular Hgb Conc. 35.2 g/dL (32.0-36.0); Mean Corpuscular Volume 93.3 fL (80.0-100.0); Monocytes # (auto) 0.7 10 ^3/uL (0-1.3); Monocytes % (auto) 12.3 % (0.0-12.0); Neutrophils # (auto) 2.5 10 ^3/uL (1.6-8.6); Neutrophils % (auto) 46.4 % (37.0-80.0); Platelet Count (auto) 240 10^3/uL (140-450); Red Blood Cells 4.49 10^6/uL (4.5-5.90); Red Cell Distribution Width 13.6 % (11.8-14.3); White Blood Cell 5.5 10^3/uL (4.4-10.8)
[2024-01-22] MEDS ORDERED: VANCOMYCIN 1GM/200ML PREMIX 200 ML IV SCH ×2 (19:00)
[2024-01-22] MEDS: VANCOMYCIN 1GM/200ML PREMIX 200 ML IV SCH (19:19)
--- NOTE | 2024-01-22 21:55 | DVHPN ---
DATE: 01/22/2024 ATTENDING PHYSICIAN: Dr. Jeremías Gar. SUBJECTIVE: No new complaints. No untoward events. The patient is in good spirits. He is eating lunch with a voracious appetite. Denies any pain, cough, shortness of breath nor fever. OBJECTIVE: VITAL SIGNS: His temperature is 97.6 with a blood pressure 106/68, heart rate 68, respiratory rate of 20, O2 sat 99% on room air. HEART: S1, S2 regular, without click, murmur or gallop. LUNGS: Good equal air exchange bilateral, clear to auscultation. ABDOMEN: Soft, nondistended, nontender. Bowel sounds positive. No mass, guarding or rebound. EXTREMITIES: Right index shows some moderate swelling is of normal color, is slightly warm to the touch and there is slight tenderness in the proximal phalanx. This shows moderate decreased range of motion. LABORATORY DATA: We have a WBC of 5.5 with a hemoglobin 14.7 and a platelet of 240, creatinine 1.15, GFR of 85. ASSESSMENT: Osteomyelitis/cellulitis of right index finger, asthma and anxiety. PLAN: Continue with IV antibiotics for the osteomyelitis and cellulitis using Rocephin and vancomycin. Continue Zofran for the nausea and vomiting. [place] for pain and Lovenox for DVT prophylaxis, albuterol and Pulmicort for asthma. MD CLAU Caruso/PAO TID: [id number] RECEIPT: [id number]
[2024-01-23] VITALS (12 sets, daily range): BP systolic 97–123; BP diastolic 64–77; PULSE 56–100; RESP 16–20; TEMP 97.6–98.6; O2SAT 95–100
--- NOTE | 2024-01-23 19:04 | DVHPN ---
DATE: 01/23/2024 ATTENDING PHYSICIAN: Jeremías Gar MD. SUBJECTIVE: The patient is sitting up in bed. He is watching TV. He is comfortable, he is in no active distress. He states he continues to exercise right index finger, sometimes it hurts when he does that, but he states he wants to keep working on getting the range of motion. He states that though it is still swollen, he feels that it has improved and come down a little bit. Also states that the redness is gone away. He denies any chest pain, cough, shortness of breath or fever. OBJECTIVE: VITAL SIGNS: His temperature is 97.6 with a blood pressure of 106/70, heart rate of 87, respiratory rate 16, O2 sat 99% on room air. HEART: S1, S2 regular. No click, murmur or gallop. LUNGS: Good equal air exchange bilateral. Clear to auscultation. ABDOMEN: Soft, nondistended, nontender. Bowel sounds positive. No mass, guarding or rebound. NEUROLOGIC: He is awake, alert, oriented x 4. No focal deficits. EXTREMITIES: Right index finger shows mild to moderate swelling still though there is decreased range of motion. It is without erythema. It is cool to the touch and nontender. LABORATORY DATA: We have WBC of 5.5 with a hemoglobin 14.7 and a platelet of 240, creatinine is 1.2 with GFR of 80. ASSESSMENT: * Osteomyelitis, cellulitis of right index finger. * Asthma. * Anxiety. PLAN: We will continue with the vancomycin and Rocephin IV for the osteomyelitis and cellulitis, [place] for pain, Zofran for nausea and vomiting Lovenox for DVT prophylaxis, Pulmicort and albuterol if there is asthma. MD CLAU Caruso/PETEY TID: [id number] RECEIPT: [id number]
[2024-01-24] VITALS (13 sets, daily range): BP systolic 106–128; BP diastolic 62–83; PULSE 59–89; RESP 16–18; TEMP 97.6–98.5; O2SAT 96–100
--- NOTE | 2024-01-24 14:38 | DVHPN ---
DATE: 01/24/2024 ATTENDING PHYSICIAN: Jeremías Gar MD. SUBJECTIVE: The patient is sitting up in bed. He is comfortable, in no acute distress. No new complaints. No untoward events have been noted. Specifically, denies any fevers, shortness of breath. OBJECTIVE: VITAL SIGNS: His temperature is 97.6 with a blood pressure 109/68, heart rate 72, respiratory rate 16, O2 sat 98% on room air. HEART: S1, S2 regular. No click, murmur or gallop. LUNGS: Good equal air exchange bilateral, clear to auscultation. ABDOMEN: Soft, nondistended, nontender. Bowel sounds positive. EXTREMITIES: Right index finger remains with [id number] swelling with moderate decreased range of motion. There is no erythema and it is cool to the touch. ASSESSMENT: * Osteomyelitis, cellulitis of the right index finger. * Asthma. * Anxiety. PLAN: We will continue with Rocephin and vancomycin for the osteomyelitis and cellulitis, Lovenox for DVT prophylaxis, [place] for pain, Pulmicort and albuterol for the asthma and Zofran for nausea and vomiting. He states he will continue to ambulate. Jeremías Gar MD JV/KVA TID: [id number] RECEIPT: [id number]
[2024-01-25] VITALS (10 sets, daily range): BP systolic 104–126; BP diastolic 60–79; PULSE 63–87; RESP 16–18; TEMP 97.5–99; O2SAT 95–100
--- NOTE | 2024-01-25 21:20 | DVHPN ---
DATE: 01/25/2024 ATTENDING PHYSICIAN: Jeremías Gar MD. SUBJECTIVE: The patient seen in bed. He is comfortable, no active distress. He states he has been eating well and his appetite is very good. He has been ambulating. Currently, he denies any pain and he shows me how he has been exercising his index finger. Denies any cough, shortness of breath nor fever. OBJECTIVE: VITAL SIGNS: His temperature is 98.5 with a blood pressure 126/77, heart rate 71, respiratory rate 17, O2 sats 99% on room air. HEART: S1, S2 regular, without click, murmur or gallop. LUNGS: Good equal air exchange bilateral, clear to auscultation. ABDOMEN: Soft, nondistended, nontender. Bowel sounds positive. No mass, guarding or rebound. EXTREMITIES: Right index finger shows mild to moderate swelling. It has normal temperature. There is some tenderness in the first proximal phalangeal area. ASSESSMENT: * Osteomyelitis/cellulitis of the right index finger. * Asthma. * Anxiety. PLAN: We will continue with vancomycin and Rocephin for the osteomyelitis and cellulitis. We will continue with Zofran for nausea and vomiting, Lovenox for DVT prophylaxis, Pulmicort, albuterol for the asthma and [place] for the pain. Again, I have encouraged the patient to ambulate and to shower p.r.n. Jeremías Gar MD JV/PETEY TID: [id number] RECEIPT: [id number]
[2024-01-26] VITALS (12 sets, daily range): BP systolic 102–123; BP diastolic 62–80; PULSE 69–94; RESP 14–18; TEMP 97.4–99; O2SAT 95–99
[2024-01-26] MEDS: VANCOMYCIN 1.25GM/250ML 250 ML IV SCH (04:17)
--- NOTE | 2024-01-26 11:50 | DVHPN ---
DATE: 01/26/2024 ATTENDING PHYSICIAN: Dr. Jeremías Gar. SUBJECTIVE: The patient sitting up in bed. He is comfortable, in no active distress. No untoward events have been noted. He denies any changes. He states he continues to ambulate. OBJECTIVE: VITAL SIGNS: His temperature is 97.7 with a blood pressure of 105/70, heart rate of 74, respiratory rate of 14, O2 sats is 98% on room air. PE is without change. ASSESSMENT: * Osteomyelitis/cellulitis, right index finger. * Asthma. * Anxiety. PLAN: We will continue with the Lovenox for DVT prophylaxis, vancomycin and Rocephin for the osteomyelitis and cellulitis, Zofran for nausea and vomiting and Pulmicort and albuterol for the asthma and [place] for pain. Jeremías Gar MD JV/SAG TID: [id number] RECEIPT: [id number]
[2024-01-27] VITALS (12 sets, daily range): BP systolic 100–134; BP diastolic 59–84; PULSE 68–96; RESP 15–22; TEMP 97.7–98.8; O2SAT 95–99
[2024-01-27 05:48] LABS: Basophils # (auto) 0 10 ^3/uL (0-0.2); Basophils % (auto) 0.2 % (0.0-2.0); Eosinophils # (auto) 0.2 10 ^3/uL (0-0.8); Eosinophils % (auto) 4.8 % (0.0-7.0); Hematocrit 42.6 % (41.0-53.0); Hemoglobin 14.6 g/dL (13.5-17.5); Lymphocytes # (auto) 1.7 10 ^3/uL (0.4-5.4); Lymphocytes % (auto) 35.1 % (10.0-50.0); Mean Corpuscular Hemoglobin 32.3 pg (28.0-32.0); Mean Corpuscular Hgb Conc. 34.3 g/dL (32.0-36.0); Mean Corpuscular Volume 94.1 fL (80.0-100.0); Monocytes # (auto) 0.7 10 ^3/uL (0-1.3); Monocytes % (auto) 13.9 % (0.0-12.0); Neutrophils # (auto) 2.2 10 ^3/uL (1.6-8.6); Nucleated Red Blood Cells % 0.2 %; Platelet Count (auto) 221 10^3/uL (140-450); Red Blood Cells 4.52 10^6/uL (4.5-5.90); Red Cell Distribution Width 13.3 % (11.8-14.3); White Blood Cell 4.8 10^3/uL (4.4-10.8)
[2024-01-27 05:53] LABS: Potassium 4.4 mmol/L (3.5-5.1)
[2024-01-27 05:54] LABS: Calcium 9.7 mg/dL (8.7-10.4)
[2024-01-27 05:59] LABS: Albumin 4.4 g/dL (3.2-4.8); BUN/Creatinine Ratio 14.3 (10.0-20.0)
[2024-01-27 06:01] LABS: Phosphorus 4.7 mg/dL (2.4-5.1)
--- NOTE | 2024-01-27 23:31 | DVHPN ---
DATE: 01/27/2024 ATTENDING PHYSICIAN: Dr. Jeremías Gar SUBJECTIVE: The patient is resting comfortably in bed. He is comfortable. He is in no active distress. No new complaints. No untoward events have been noted. He has been ambulating in the hallways several times a day. OBJECTIVE: VITAL SIGNS: His temperature is 98.8 with a blood pressure of 114/77, heart rate of 22, respiratory rate of 78, O2 sats 99%. HEART: S1, S2 regular. No click, murmur or gallop. LUNGS: Good equal air exchange bilateral, clear to auscultation. ABDOMEN: Soft, benign. EXTREMITIES: Right index finger shows mild to moderate swelling. There is mild tenderness of the proximal phalanx area, it is not erythematous and it is cool to the touch. ASSESSMENT: * Osteomyelitis/cellulitis of the right index finger. * Asthma. * Anxiety. PLAN: We will continue with the Rocephin and vancomycin for the osteomyelitis and cellulitis of the right index finger. Continue with Lovenox for DVT prophylaxis, Zofran for nausea and vomiting and [place] for pain, albuterol and Pulmicort for asthma. Encourage the patient to continue ambulating. MD CLAU Caruso/SUBHASH TID: [id number] RECEIPT: [id number]
[2024-01-28] VITALS (10 sets, daily range): BP systolic 100–128; BP diastolic 57–86; PULSE 58–97; RESP 16–20; TEMP 97.6–99; O2SAT 95–100
--- NOTE | 2024-01-28 19:25 | DVHPN ---
DATE: 01/28/2024 ATTENDING PHYSICIAN: Dr. Jeremías Gar. SUBJECTIVE: The patient is resting comfortably. He is in no acute distress. He states that he has been getting more range of motion of the finger and it seems that the swelling has come down, but he states it seems the pain is worsening in the entire finger. I explained to him that maybe the product of working on getting more range of motion, but I told him to continue. He denies any cough, shortness of breath or fever. OBJECTIVE: VITAL SIGNS: His temperature is 97.9 with a blood pressure of 113/81, heart rate of 72, respiratory rate of 16. HEART: S1, S2 regular. No click, murmur or gallop. LUNGS: Good equal air exchange bilateral, clear to auscultation. ABDOMEN: Soft, nondistended, nontender. Bowel sounds are positive. No mass, guarding or rebound. NEUROLOGIC: He is awake, alert, and oriented x4 without focal deficits. EXTREMITIES: Right index finger shows moderate swelling of the proximal interphalangeal joint with minimal swelling of the proximal phalanx. It is without erythema, though his range of motion is improved, it is still slightly limited. ASSESSMENT: * Osteomyelitis/cellulitis of the right index finger. * Asthma. * Anxiety. PLAN: We will continue with the Lovenox for DVT prophylaxis, Zofran for nausea and vomiting, [place] for pain, albuterol and Pulmicort for her asthma and vancomycin and Rocephin for the osteomyelitis and cellulitis. I instructed the patient to continue with working on range of motion as well as ambulating as much as possible. MD CLAU Caruso/CHARLENE/RAJNI TID: [id number] RECEIPT: [id number]
[2024-01-29] VITALS (9 sets, daily range): BP systolic 99–116; BP diastolic 61–79; PULSE 54–95; RESP 16–20; TEMP 97.8–98.6; O2SAT 94–100
[2024-01-29 06:36] LABS: Basophils # (auto) 0 10 ^3/uL (0-0.2); Basophils % (auto) 0.2 % (0.0-2.0); Eosinophils # (auto) 0.3 10 ^3/uL (0-0.8); Eosinophils % (auto) 5.1 % (0.0-7.0); Hematocrit 42.7 % (41.0-53.0); Hemoglobin 14.9 g/dL (13.5-17.5); Lymphocytes # (auto) 1.8 10 ^3/uL (0.4-5.4); Lymphocytes % (auto) 34.8 % (10.0-50.0); Mean Corpuscular Hemoglobin 32.6 pg (28.0-32.0); Mean Corpuscular Hgb Conc. 34.9 g/dL (32.0-36.0); Mean Corpuscular Volume 93.6 fL (80.0-100.0); Monocytes # (auto) 0.6 10 ^3/uL (0-1.3); Monocytes % (auto) 11.9 % (0.0-12.0); Neutrophils # (auto) 2.5 10 ^3/uL (1.6-8.6); Nucleated Red Blood Cells % 0.1 %; Platelet Count (auto) 218 10^3/uL (140-450); Red Blood Cells 4.56 10^6/uL (4.5-5.90); Red Cell Distribution Width 13.7 % (11.8-14.3); White Blood Cell 5.2 10^3/uL (4.4-10.8)
[2024-01-29] MEDS: cefTRIAXone 1GM/50ML D5W 50 ML IV ONE (11:32)
--- NOTE | 2024-01-29 23:49 | DVHPN ---
DATE: 01/29/2024 ATTENDING PHYSICIAN: Jeremías Gar MD. SUBJECTIVE: The patient is again seen sitting in bed. He just finished eating lunch. It seems he has a voracious appetite and consumed pretty much the entire tray. He is comfortable, he is in no active distress. He denies any new complaints. He states he still has intermittent pain to the finger, especially after exercising it. Again, I asked the patient regarding possible surgical consult, but he adamantly refuses any surgical procedure, at which point I told him send you or transfer you to another hospital to be evaluated by Surgery if he is not willing to have any surgery. We both agreed that he will continue with the antibiotics. OBJECTIVE: VITAL SIGNS: His temperature is 97.8 with a blood pressure 111/70, heart rate 67, respiratory rate 16, O2 sats 98% on room air. HEART: S1, S2 regular. No click, murmur or gallop. LUNGS: Good equal air exchange bilateral, clear to auscultation. ABDOMEN: Soft, nondistended, nontender. Bowel sounds positive. No mass, guarding or rebound. EXTREMITIES: Right index finger shows mild to moderate swelling with decreased range of motion. It is cool to the touch. There is no erythema. ASSESSMENT: * Osteomyelitis/cellulitis, right index finger. * Asthma. * Anxiety. PLAN: We will continue with the vancomycin and Rocephin for the osteomyelitis and cellulitis, Lovenox for DVT prophylaxis, Zofran for nausea and vomiting, [place] for pain, albuterol and Pulmicort for asthma. States he will continue to exercise the index finger and to continue ambulating. MD CLAU Caruso/PETEY/RAJNI/ANSELMO TID: [id number] RECEIPT: [id number]
[2024-01-30] VITALS (12 sets, daily range): BP systolic 109–143; BP diastolic 63–90; PULSE 69–98; RESP 16–22; TEMP 97.9–98.9; O2SAT 97–100
[2024-01-30 07:35] LABS: Basophils # (auto) 0 10 ^3/uL (0-0.2); Basophils % (auto) 0.3 % (0.0-2.0); Eosinophils # (auto) 0.3 10 ^3/uL (0-0.8); Eosinophils % (auto) 5.8 % (0.0-7.0); Hematocrit 41.5 % (41.0-53.0); Hemoglobin 14.6 g/dL (13.5-17.5); Lymphocytes # (auto) 1.5 10 ^3/uL (0.4-5.4); Lymphocytes % (auto) 31.6 % (10.0-50.0); Mean Corpuscular Hemoglobin 32.9 pg (28.0-32.0); Mean Corpuscular Hgb Conc. 35.1 g/dL (32.0-36.0); Mean Corpuscular Volume 93.6 fL (80.0-100.0); Monocytes # (auto) 0.7 10 ^3/uL (0-1.3); Neutrophils # (auto) 2.4 10 ^3/uL (1.6-8.6); Neutrophils % (auto) 48.3 % (37.0-80.0); Nucleated Red Blood Cells % 0.1 %; Platelet Count (auto) 213 10^3/uL (140-450); Red Blood Cells 4.44 10^6/uL (4.5-5.90); Red Cell Distribution Width 13.5 % (11.8-14.3); White Blood Cell 4.9 10^3/uL (4.4-10.8)
--- NOTE | 2024-01-30 14:24 | DVHPN2 ---
Subjective COVERING FOR DR. MUNSON TILL SundayFEB 10. Seen and examined at bedside, Cont Abx. No change. Reviewed: Care Plan, H&P, Labs, Medications Changes from previous H/P or p: No Changes General: Per HPI Eyes: No Pain, No Vision change, No Conjunctivae inflammation, No Eyelid inflammation, No Other, No Redness ENT: No Ear pain, No Ear discharge, No Nose pain, No Nose discharge, No Nose congestion, No Mouth pain, No Mouth swelling, No Throat pain, No Throat swelling, No Other Cardiovascular: No Chest Pain, No Palpitations, No Orthopnea, No Paroxysmal Noc. Dyspnea, No Edema, No Lt Headedness, No Other Respiratory: No Cough, No Dry, No Shortness of breath, No SOB with excertion, No Wheezing, No Hemoptysis, No Pleuritic Pain, No Sputum, No Other Gastrointestinal: No Nausea, No Vomiting, No Abdominal Pain, No Diarrhea, No Constipation, No Melena, No Hematochezia, No Other Genitourinary: No Dysuria, No Frequency, No Incontinence, No Hematuria, No Retention, No Other Musculoskeletal: other (right index finger pain and swelling); No neck pain, No shoulder pain, No arm pain, No back pain, No hand pain, No leg pain, No foot pain Skin: No Rash, No Lesions, No Jaundice, No Bruising, No Other Objective Vitals Vital Signs Date Time Temp Pulse Resp B/P (MAP) Pulse Ox O2 Delivery O2 Flow Rate FiO2 01/30/24 13:00 98.1 74 17 118/71 (87) 98 98.1 01/30/24 08:30 Room Air* 0 21 Intake/Output Intake and Output 01/30/24 06:59 Intake Total 2900 ml Output Total 1650 ml Balance 1250 ml Intake Oral 2600 ml IV Total 300 ml Output Urine Total 1650 ml General Appearance: Alert, Oriented X3, Cooperative, No acute distress HEENT: Atraumatic, PERRLA Lungs: Clear to auscultation Cardiovascular: Normal S1, Normal S2 Abdomen: Normal bowel sounds Rectal: Normal inspection Extremities: Other (right index finger mild swelling) Neuro: Normal gait, Normal speech Psych/Mental Status: Mental status NL, Mood NL Medications Current Medications Medications Dose Ordered Sig/Susan Route Start Time Stop Time Status Last Admin Dose Admin Vancomycin HCl 0 ml @ 0 mls/hr UD IV 12/28/23 22:30 Ondansetron HCl 4 mg Q4HP PRN IV 12/28/23 22:30 Docusate Sodium 100 mg BIDPRN PRN PO 12/28/23 22:30 Acetaminophen 650 mg Q6HP PRN PO 12/28/23 22:30 Acetaminophen/ Hydrocodone Bitart 1 tab Q4HP PRN PO 12/31/23 15:30 Amitriptyline HCl 50 mg HS PO 12/31/23 22:00 01/29/24 23:15 50 MG Fluticasone Propionate 50 mcg Q12HR EACHNOSTRI 12/31/23 22:00 01/30/24 12:32 50 MCG Budesonide 0.5 mg BID NEB 01/09/24 22:00 01/29/24 22:31 0.5 MG Albuterol 2.5 mg Q4HPRN PRN NEB 01/09/24 12:15 01/29/24 22:31 2.5 MG Ceftriaxone Sodium/Dextrose 50 ml @ 50 mls/hr DAILY IV 01/17/24 18:00 01/30/24 12:32 50 MLS/HR Vancomycin HCl 250 ml @ 200 mls/hr Q10H IV 01/26/24 03:00 01/30/24 06:54 200 MLS/HR Laboratory Results Laboratory Tests 01/27/24 04:56 01/30/24 06:47 Microbiology Microbiology Date/Time Source Procedure Growth Status 12/29/23 06:00 Nose MRSA Screen - Final Complete Assessment/Plan Assessment/Plan * Cellulitis/osteomyelitis of the right index finger.- Cont Vanco and Cefepime, monitor renal function * Anxiety * DVT Prop- Lovenox Subq Plan discussed with: Patient Date of Service: Jan 30, 2024 Billing Provider: TIMOTHY CABA MD Common Visit Codes: [id number] INP/OBS CARE(HIGH) TIMTOHY CABA MD Jan 30, 2024 14:24
[2024-01-31] VITALS (10 sets, daily range): BP systolic 109–127; BP diastolic 65–82; PULSE 63–89; RESP 17–22; TEMP 97.6–99.1; O2SAT 93–100
--- NOTE | 2024-01-31 16:10 | DVHPN2 ---
Subjective COVERING FOR DR. MUNSON TILL SundayFEB 10. Seen and examined at bedside, Cont Abx. Seen walking in the hallway. Reviewed: Care Plan, H&P, Labs, Medications Changes from previous H/P or p: No Changes General: Per HPI Eyes: No Pain, No Vision change, No Conjunctivae inflammation, No Eyelid inflammation, No Other, No Redness ENT: No Ear pain, No Ear discharge, No Nose pain, No Nose discharge, No Nose congestion, No Mouth pain, No Mouth swelling, No Throat pain, No Throat swelling, No Other Cardiovascular: No Chest Pain, No Palpitations, No Orthopnea, No Paroxysmal Noc. Dyspnea, No Edema, No Lt Headedness, No Other Respiratory: No Cough, No Dry, No Shortness of breath, No SOB with excertion, No Wheezing, No Hemoptysis, No Pleuritic Pain, No Sputum, No Other Gastrointestinal: No Nausea, No Vomiting, No Abdominal Pain, No Diarrhea, No Constipation, No Melena, No Hematochezia, No Other Genitourinary: No Dysuria, No Frequency, No Incontinence, No Hematuria, No Retention, No Other Musculoskeletal: other (right index finger pain and swelling); No neck pain, No shoulder pain, No arm pain, No back pain, No hand pain, No leg pain, No foot pain Skin: No Rash, No Lesions, No Jaundice, No Bruising, No Other Objective Vitals Vital Signs Date Time Temp Pulse Resp B/P (MAP) Pulse Ox O2 Delivery O2 Flow Rate FiO2 01/31/24 12:39 97.9 73 19 121/82 (95) 93 97.9 01/31/24 10:00 Room Air 01/31/24 10:00 0 21 Intake/Output Intake and Output 01/31/24 07:00 Intake Total 3150 ml Output Total 2700 ml Balance 450 ml Intake Oral 3100 ml IV Total 50 ml Output Urine Total 2700 ml # Bowel Movements 1 General Appearance: Alert, Oriented X3, Cooperative, No acute distress HEENT: Atraumatic, PERRLA Lungs: Clear to auscultation Cardiovascular: Normal S1, Normal S2 Abdomen: Normal bowel sounds Rectal: Normal inspection Extremities: Other (right index finger mild swelling) Neuro: Normal gait, Normal speech Psych/Mental Status: Mental status NL, Mood NL Medications Current Medications Medications Dose Ordered Sig/Susan Route Start Time Stop Time Status Last Admin Dose Admin Vancomycin HCl 0 ml @ 0 mls/hr UD IV 12/28/23 22:30 Ondansetron HCl 4 mg Q4HP PRN IV 12/28/23 22:30 Docusate Sodium 100 mg BIDPRN PRN PO 12/28/23 22:30 Acetaminophen 650 mg Q6HP PRN PO 12/28/23 22:30 Budesonide 0.5 mg BID NEB 01/09/24 22:00 01/30/24 21:28 0.5 MG Albuterol 2.5 mg Q4HPRN PRN NEB 01/09/24 12:15 01/30/24 21:28 2.5 MG Ceftriaxone Sodium/Dextrose 50 ml @ 50 mls/hr DAILY IV 01/17/24 18:00 01/31/24 10:21 50 MLS/HR Vancomycin HCl 250 ml @ 200 mls/hr Q10H IV 01/26/24 03:00 01/31/24 13:06 200 MLS/HR Laboratory Results Laboratory Tests 01/27/24 04:56 01/30/24 06:47 Microbiology Microbiology Date/Time Source Procedure Growth Status 12/29/23 06:00 Nose MRSA Screen - Final Complete Assessment/Plan Assessment/Plan * Cellulitis/osteomyelitis of the right index finger.- Cont Vanco and Cefepime, monitor renal function * Anxiety * DVT Prop- Lovenox Subq Plan discussed with: Patient Date of Service: Jan 31, 2024 Billing Provider: TIMOTHY CABA MD Common Visit Codes: [id number] INP/OBS CARE(MOD) TIMOTHY CABA MD Jan 31, 2024 16:10
[2024-02-01] VITALS (12 sets, daily range): BP systolic 105–146; BP diastolic 69–86; PULSE 66–103; RESP 16–20; TEMP 97.6–98.5; O2SAT 95–100
[2024-02-01 05:59] LABS: Anion Gap 6 (5-15); Carbon Dioxide 25 mmol/L (20-31); Chloride 107 mmol/L (98-107); Potassium 3.9 mmol/L (3.5-5.1); Sodium 138 mmol/L (136-145)
[2024-02-01 06:00] LABS: Calcium 9.7 mg/dL (8.7-10.4)
[2024-02-01 06:05] LABS: BUN/Creatinine Ratio 15.3 (10.0-20.0); Blood Urea Nitrogen 15 mg/dL (9-23); Glucose 90 mg/dL (74-106)
[2024-02-01] MEDS: ENOXAPARIN SOD 40 MG/0.4 ML SYRINGE SC SCH (09:21)
[2024-02-01] MEDS: AMITRIPTYLINE HCL 25 MG TAB PO ONE (09:21)
--- NOTE | 2024-02-01 13:19 | DVHPN2 ---
Reviewed: Care Plan, H&P, Labs, Medications Changes from previous H/P or p: No Changes General: Per HPI Eyes: No Pain, No Vision change, No Conjunctivae inflammation, No Eyelid inflammation, No Other, No Redness ENT: No Ear pain, No Ear discharge, No Nose pain, No Nose discharge, No Nose congestion, No Mouth pain, No Mouth swelling, No Throat pain, No Throat swelling, No Other Cardiovascular: No Chest Pain, No Palpitations, No Orthopnea, No Paroxysmal Noc. Dyspnea, No Edema, No Lt Headedness, No Other Respiratory: No Cough, No Dry, No Shortness of breath, No SOB with excertion, No Wheezing, No Hemoptysis, No Pleuritic Pain, No Sputum, No Other Gastrointestinal: No Nausea, No Vomiting, No Abdominal Pain, No Diarrhea, No Constipation, No Melena, No Hematochezia, No Other Genitourinary: No Dysuria, No Frequency, No Incontinence, No Hematuria, No Retention, No Other Musculoskeletal: other (right index finger pain and swelling); No neck pain, No shoulder pain, No arm pain, No back pain, No hand pain, No leg pain, No foot pain Skin: No Rash, No Lesions, No Jaundice, No Bruising, No Other Objective Vitals Vital Signs Date Time Temp Pulse Resp B/P (MAP) Pulse Ox O2 Delivery O2 Flow Rate FiO2 02/01/24 12:47 97.6 66 20 119/70 (86) 100 97.6 02/01/24 10:00 Room Air 02/01/24 10:00 0 21 Intake/Output Intake and Output 02/01/24 07:00 Intake Total 850 ml Output Total 2400 ml Balance -1550 ml Intake Oral 550 ml IV Total 300 ml Output Urine Total 2400 ml General Appearance: Alert, Oriented X3, Cooperative, No acute distress HEENT: Atraumatic, PERRLA Lungs: Clear to auscultation Cardiovascular: Normal S1, Normal S2 Abdomen: Normal bowel sounds Rectal: Normal inspection Extremities: Other (right index finger mild swelling) Neuro: Normal gait, Normal speech Psych/Mental Status: Mental status NL, Mood NL Medications Current Medications Medications Dose Ordered Sig/Susan Route Start Time Stop Time Status Last Admin Dose Admin Vancomycin HCl 0 ml @ 0 mls/hr UD IV 12/28/23 22:30 Ondansetron HCl 4 mg Q4HP PRN IV 12/28/23 22:30 Docusate Sodium 100 mg BIDPRN PRN PO 12/28/23 22:30 Acetaminophen 650 mg Q6HP PRN PO 12/28/23 22:30 Budesonide 0.5 mg BID NEB 01/09/24 22:00 01/31/24 22:40 0.5 MG Albuterol 2.5 mg Q4HPRN PRN NEB 01/09/24 12:15 01/30/24 21:28 2.5 MG Ceftriaxone Sodium/Dextrose 50 ml @ 50 mls/hr DAILY IV 01/17/24 18:00 02/01/24 11:13 50 MLS/HR Vancomycin HCl 250 ml @ 200 mls/hr Q10H IV 01/26/24 03:00 02/01/24 09:21 200 MLS/HR Enoxaparin Sodium 40 mg DAILY SC 02/01/24 10:00 02/01/24 09:21 40 MG Amitriptyline HCl 50 mg HS PO 02/01/24 22:00 Laboratory Results Laboratory Tests 01/30/24 06:47 02/01/24 05:15 Chemistry Test 02/01/24 05:15 Calcium Level 9.7 mg/dL (8.7-10.4) Microbiology Microbiology Date/Time Source Procedure Growth Status 12/29/23 06:00 Nose MRSA Screen - Final Complete Labs and/or images reviewed: Labs reviewed by me, Image(s) reviewed by me Assessment/Plan Assessment/Plan Covering for Dr. Conti * Cellulitis/osteomyelitis of the right index finger.- Cont Vanco and Cefepime, monitor renal function * Anxiety * DVT Prop- Lovenox Subq Continue current management Plan discussed with: Patient Date of Service: Feb 01, 2024 Billing Provider: DANIELLE PEREZ MD Common Visit Codes: [id number] INP/OBS CARE(HIGH) DANIELLE PEREZ MD Feb 01, 2024 13:19
[2024-02-01] MEDS: AMITRIPTYLINE HCL 25 MG TAB PO SCH (21:40)
[2024-02-01] MEDS: FLUTICASONE PROP NASAL SPR 0.05 % (50MCG) 16GM EACHNOSTRI SCH (21:40)
[2024-02-02] VITALS (10 sets, daily range): BP systolic 106–123; BP diastolic 67–82; PULSE 67–93; RESP 14–18; TEMP 97.6–98; O2SAT 96–100
[2024-02-02 06:04] LABS: Basophils # (auto) 0 10 ^3/uL (0-0.2); Basophils % (auto) 0.3 % (0.0-2.0); Eosinophils # (auto) 0.3 10 ^3/uL (0-0.8); Eosinophils % (auto) 5.9 % (0.0-7.0); Hematocrit 43.4 % (41.0-53.0); Hemoglobin 15.3 g/dL (13.5-17.5); Lymphocytes # (auto) 1.9 10 ^3/uL (0.4-5.4); Lymphocytes % (auto) 33.4 % (10.0-50.0); Mean Corpuscular Hemoglobin 33.1 pg (28.0-32.0); Mean Corpuscular Hgb Conc. 35.4 g/dL (32.0-36.0); Mean Corpuscular Volume 93.7 fL (80.0-100.0); Monocytes # (auto) 0.8 10 ^3/uL (0-1.3); Monocytes % (auto) 13.6 % (0.0-12.0); Neutrophils # (auto) 2.6 10 ^3/uL (1.6-8.6); Neutrophils % (auto) 46.8 % (37.0-80.0); Nucleated Red Blood Cells % 0.1 %; Platelet Count (auto) 216 10^3/uL (140-450); Red Blood Cells 4.63 10^6/uL (4.5-5.90); Red Cell Distribution Width 13.9 % (11.8-14.3); White Blood Cell 5.6 10^3/uL (4.4-10.8)
--- NOTE | 2024-02-02 10:23 | DVHPN2 ---
Reviewed: Care Plan, H&P, Labs, Medications Changes from previous H/P or p: No Changes General: Per HPI Eyes: No Pain, No Vision change, No Conjunctivae inflammation, No Eyelid inflammation, No Other, No Redness ENT: No Ear pain, No Ear discharge, No Nose pain, No Nose discharge, No Nose congestion, No Mouth pain, No Mouth swelling, No Throat pain, No Throat swelling, No Other Cardiovascular: No Chest Pain, No Palpitations, No Orthopnea, No Paroxysmal Noc. Dyspnea, No Edema, No Lt Headedness, No Other Respiratory: No Cough, No Dry, No Shortness of breath, No SOB with excertion, No Wheezing, No Hemoptysis, No Pleuritic Pain, No Sputum, No Other Gastrointestinal: No Nausea, No Vomiting, No Abdominal Pain, No Diarrhea, No Constipation, No Melena, No Hematochezia, No Other Genitourinary: No Dysuria, No Frequency, No Incontinence, No Hematuria, No Retention, No Other Musculoskeletal: other (right index finger pain and swelling); No neck pain, No shoulder pain, No arm pain, No back pain, No hand pain, No leg pain, No foot pain Skin: No Rash, No Lesions, No Jaundice, No Bruising, No Other Objective Vitals Vital Signs Date Time Temp Pulse Resp B/P (MAP) Pulse Ox O2 Delivery O2 Flow Rate FiO2 02/02/24 09:08 98.0 67 16 106/67 (80) 99 98.0 02/01/24 21:59 Room Air* 0 21 Intake/Output Intake and Output 02/02/24 07:00 Intake Total 2700 ml Output Total 4200 ml Balance -1500 ml Intake Oral 2400 ml IV Total 300 ml Output Urine Total 4200 ml # Bowel Movements 1 General Appearance: Alert, Oriented X3, Cooperative, No acute distress HEENT: Atraumatic, PERRLA Lungs: Clear to auscultation Cardiovascular: Normal S1, Normal S2 Abdomen: Normal bowel sounds Rectal: Normal inspection Extremities: Other (right index finger mild swelling) Neuro: Normal gait, Normal speech Psych/Mental Status: Mental status NL, Mood NL Medications Current Medications Medications Dose Ordered Sig/Susan Route Start Time Stop Time Status Last Admin Dose Admin Vancomycin HCl 0 ml @ 0 mls/hr UD IV 12/28/23 22:30 Ondansetron HCl 4 mg Q4HP PRN IV 12/28/23 22:30 Docusate Sodium 100 mg BIDPRN PRN PO 12/28/23 22:30 Acetaminophen 650 mg Q6HP PRN PO 12/28/23 22:30 Budesonide 0.5 mg BID NEB 01/09/24 22:00 02/01/24 22:18 0.5 MG Albuterol 2.5 mg Q4HPRN PRN NEB 01/09/24 12:15 01/30/24 21:28 2.5 MG Ceftriaxone Sodium/Dextrose 50 ml @ 50 mls/hr DAILY IV 01/17/24 18:00 02/01/24 11:13 50 MLS/HR Vancomycin HCl 250 ml @ 200 mls/hr Q10H IV 01/26/24 03:00 02/02/24 04:49 200 MLS/HR Enoxaparin Sodium 40 mg DAILY SC 02/01/24 10:00 02/01/24 09:21 40 MG Amitriptyline HCl 50 mg HS PO 02/01/24 22:00 02/01/24 21:40 50 MG Fluticasone Propionate 50 mcg Q12HR EACHNOSTRI 02/01/24 22:00 02/01/24 21:40 50 MCG Laboratory Results Laboratory Tests 02/01/24 05:15 02/02/24 05:00 Microbiology Microbiology Date/Time Source Procedure Growth Status 12/29/23 06:00 Nose MRSA Screen - Final Complete Labs and/or images reviewed: Labs reviewed by me, Image(s) reviewed by me Assessment/Plan Assessment/Plan Covering for Dr. Conti * Cellulitis/osteomyelitis of the right index finger.- Cont Vanco and Cefepime, monitor renal function * Anxiety * DVT Prop- Lovenox Subq Plan discussed with: Patient My Orders Orders - DANIELLE PEREZ MD Procedure Category Date Status Time Fluticasone Nasal PHA 02/01/24 In Process [place] (Flonase [place]) 22:00 Date of Service: Feb 02, 2024 Billing Provider: DANIELLE PEREZ MD Common Visit Codes: [id number] INP/OBS CARE(HIGH) DANIELLE PEREZ MD Feb 02, 2024 10:23
[2024-02-03] VITALS (11 sets, daily range): BP systolic 107–122; BP diastolic 64–88; PULSE 67–88; RESP 16–19; TEMP 97.5–98.6; O2SAT 96–100
[2024-02-03 06:15] LABS: Basophils # (auto) 0 10 ^3/uL (0-0.2); Basophils % (auto) 0.5 % (0.0-2.0); Eosinophils # (auto) 0.3 10 ^3/uL (0-0.8); Eosinophils % (auto) 5.9 % (0.0-7.0); Hematocrit 43.5 % (41.0-53.0); Hemoglobin 15.1 g/dL (13.5-17.5); Lymphocytes # (auto) 1.7 10 ^3/uL (0.4-5.4); Lymphocytes % (auto) 33.5 % (10.0-50.0); Mean Corpuscular Hemoglobin 32.4 pg (28.0-32.0); Mean Corpuscular Hgb Conc. 34.8 g/dL (32.0-36.0); Mean Corpuscular Volume 93.1 fL (80.0-100.0); Monocytes # (auto) 0.7 10 ^3/uL (0-1.3); Monocytes % (auto) 14.3 % (0.0-12.0); Neutrophils # (auto) 2.3 10 ^3/uL (1.6-8.6); Neutrophils % (auto) 45.8 % (37.0-80.0); Nucleated Red Blood Cells % 0.1 %; Platelet Count (auto) 206 10^3/uL (140-450); Red Blood Cells 4.68 10^6/uL (4.5-5.90); White Blood Cell 5.1 10^3/uL (4.4-10.8)
--- NOTE | 2024-02-03 09:35 | DVHPN2 ---
Reviewed: Care Plan, H&P, Labs, Medications Changes from previous H/P or p: No Changes General: Per HPI Eyes: No Pain, No Vision change, No Conjunctivae inflammation, No Eyelid inflammation, No Other, No Redness ENT: No Ear pain, No Ear discharge, No Nose pain, No Nose discharge, No Nose congestion, No Mouth pain, No Mouth swelling, No Throat pain, No Throat swelling, No Other Cardiovascular: No Chest Pain, No Palpitations, No Orthopnea, No Paroxysmal Noc. Dyspnea, No Edema, No Lt Headedness, No Other Respiratory: No Cough, No Dry, No Shortness of breath, No SOB with excertion, No Wheezing, No Hemoptysis, No Pleuritic Pain, No Sputum, No Other Gastrointestinal: No Nausea, No Vomiting, No Abdominal Pain, No Diarrhea, No Constipation, No Melena, No Hematochezia, No Other Genitourinary: No Dysuria, No Frequency, No Incontinence, No Hematuria, No Retention, No Other Musculoskeletal: other (right index finger pain and swelling); No neck pain, No shoulder pain, No arm pain, No back pain, No hand pain, No leg pain, No foot pain Skin: No Rash, No Lesions, No Jaundice, No Bruising, No Other Objective Vitals Vital Signs Date Time Temp Pulse Resp B/P (MAP) Pulse Ox O2 Delivery O2 Flow Rate FiO2 02/03/24 09:00 97.8 68 19 114/70 (85) 100 97.8 02/03/24 07:45 Room Air* 0 21 Intake/Output Intake and Output 02/03/24 07:00 Intake Total 3600 ml Output Total 1300 ml Balance 2300 ml Intake Oral 2800 ml IV Total 800 ml Output Urine Total 1300 ml # Voids 5 # Bowel Movements 1 General Appearance: Alert, Oriented X3, Cooperative, No acute distress HEENT: Atraumatic, PERRLA Lungs: Clear to auscultation Cardiovascular: Normal S1, Normal S2 Abdomen: Normal bowel sounds Rectal: Normal inspection Extremities: Other (right index finger mild swelling) Neuro: Normal gait, Normal speech Psych/Mental Status: Mental status NL, Mood NL Medications Current Medications Medications Dose Ordered Sig/Susan Route Start Time Stop Time Status Last Admin Dose Admin Vancomycin HCl 0 ml @ 0 mls/hr UD IV 12/28/23 22:30 02/05/24 23:59 Ondansetron HCl 4 mg Q4HP PRN IV 12/28/23 22:30 Docusate Sodium 100 mg BIDPRN PRN PO 12/28/23 22:30 Acetaminophen 650 mg Q6HP PRN PO 12/28/23 22:30 Budesonide 0.5 mg BID NEB 01/09/24 22:00 02/03/24 06:21 0.5 MG Albuterol 2.5 mg Q4HPRN PRN NEB 01/09/24 12:15 02/02/24 18:36 2.5 MG Vancomycin HCl 250 ml @ 200 mls/hr Q10H IV 01/26/24 03:00 02/03/24 00:33 200 MLS/HR Enoxaparin Sodium 40 mg DAILY SC 02/01/24 10:00 02/02/24 11:16 40 MG Amitriptyline HCl 50 mg HS PO 02/01/24 22:00 02/02/24 19:44 50 MG Fluticasone Propionate 50 mcg Q12HR EACHNOSTRI 02/01/24 22:00 02/02/24 19:46 50 MCG Laboratory Results Laboratory Tests 02/01/24 05:15 02/03/24 05:55 Microbiology Microbiology Date/Time Source Procedure Growth Status 12/29/23 06:00 Nose MRSA Screen - Final Complete Labs and/or images reviewed: Labs reviewed by me, Image(s) reviewed by me Assessment/Plan Assessment/Plan Covering for Dr. Conti * Cellulitis/osteomyelitis of the right index finger.- Cont Vanco and Cefepime, monitor renal function * Anxiety * DVT Prop- Lovenox Subq Right index finger movements much improved, no swelling no redness Plan discussed with: Patient Date of Service: Feb 03, 2024 Billing Provider: DANIELLE PEREZ MD Common Visit Codes: [id number] INP/OBS CARE(HIGH) DANIELLE PEREZ MD Feb 03, 2024 09:35
[2024-02-04] VITALS (9 sets, daily range): BP systolic 106–123; BP diastolic 64–86; PULSE 65–105; RESP 16–18; TEMP 97.8–98.7; O2SAT 96–99
[2024-02-04 06:55] LABS: Basophils # (auto) 0 10 ^3/uL (0-0.2); Basophils % (auto) 0.4 % (0.0-2.0); Eosinophils # (auto) 0.3 10 ^3/uL (0-0.8); Eosinophils % (auto) 5.8 % (0.0-7.0); Hematocrit 43.3 % (41.0-53.0); Hemoglobin 14.8 g/dL (13.5-17.5); Lymphocytes # (auto) 1.9 10 ^3/uL (0.4-5.4); Lymphocytes % (auto) 32.1 % (10.0-50.0); Mean Corpuscular Hemoglobin 32.4 pg (28.0-32.0); Mean Corpuscular Hgb Conc. 34.3 g/dL (32.0-36.0); Mean Corpuscular Volume 94.5 fL (80.0-100.0); Monocytes # (auto) 0.9 10 ^3/uL (0-1.3); Monocytes % (auto) 15.5 % (0.0-12.0); Neutrophils # (auto) 2.7 10 ^3/uL (1.6-8.6); Neutrophils % (auto) 46.2 % (37.0-80.0); Nucleated Red Blood Cells % 0.1 %; Platelet Count (auto) 202 10^3/uL (140-450); Red Blood Cells 4.58 10^6/uL (4.5-5.90); Red Cell Distribution Width 13.6 % (11.8-14.3); White Blood Cell 5.8 10^3/uL (4.4-10.8)
[2024-02-05] VITALS (10 sets, daily range): BP systolic 107–126; BP diastolic 60–91; PULSE 63–104; RESP 16–20; TEMP 97.6–98.1; O2SAT 96–100
[2024-02-05 05:50] LABS: Basophils # (auto) 0 10 ^3/uL (0-0.2); Basophils % (auto) 0.5 % (0.0-2.0); Eosinophils # (auto) 0.4 10 ^3/uL (0-0.8); Eosinophils % (auto) 5.6 % (0.0-7.0); Hematocrit 42.9 % (41.0-53.0); Lymphocytes # (auto) 2.2 10 ^3/uL (0.4-5.4); Lymphocytes % (auto) 32.5 % (10.0-50.0); Mean Corpuscular Hemoglobin 32.6 pg (28.0-32.0); Mean Corpuscular Volume 93.2 fL (80.0-100.0); Monocytes # (auto) 0.8 10 ^3/uL (0-1.3); Monocytes % (auto) 11.7 % (0.0-12.0); Neutrophils # (auto) 3.3 10 ^3/uL (1.6-8.6); Neutrophils % (auto) 49.7 % (37.0-80.0); Nucleated Red Blood Cells % 0.2 %; Platelet Count (auto) 209 10^3/uL (140-450); Red Cell Distribution Width 13.8 % (11.8-14.3); White Blood Cell 6.7 10^3/uL (4.4-10.8)
--- NOTE | 2024-02-05 11:57 | DVHPN2 ---
Subjective Continues to have some discomfort and limited range of motion to his left index finger. Reviewed: Care Plan, H&P, Labs, Medications Changes from previous H/P or p: No Changes General: Per HPI Eyes: No Pain, No Vision change, No Conjunctivae inflammation, No Eyelid inflammation, No Other, No Redness ENT: No Ear pain, No Ear discharge, No Nose pain, No Nose discharge, No Nose congestion, No Mouth pain, No Mouth swelling, No Throat pain, No Throat swelling, No Other Cardiovascular: No Chest Pain, No Palpitations, No Orthopnea, No Paroxysmal Noc. Dyspnea, No Edema, No Lt Headedness, No Other Respiratory: No Cough, No Dry, No Shortness of breath, No SOB with excertion, No Wheezing, No Hemoptysis, No Pleuritic Pain, No Sputum, No Other Gastrointestinal: No Nausea, No Vomiting, No Abdominal Pain, No Diarrhea, No Constipation, No Melena, No Hematochezia, No Other Genitourinary: No Dysuria, No Frequency, No Incontinence, No Hematuria, No Retention, No Other Musculoskeletal: other (right index finger pain and swelling); No neck pain, No shoulder pain, No arm pain, No back pain, No hand pain, No leg pain, No foot pain Skin: No Rash, No Lesions, No Jaundice, No Bruising, No Other Objective Vitals Vital Signs Date Time Temp Pulse Resp B/P (MAP) Pulse Ox O2 Delivery O2 Flow Rate FiO2 02/05/24 10:10 98 Room Air* 0 21 02/05/24 08:31 97.8 73 16 111/77 (88) 97.8 Intake/Output Intake and Output 02/05/24 07:00 Intake Total 2800 ml Output Total 1300 ml Balance 1500 ml Intake Oral 2300 ml IV Total 500 ml Output Urine Total 1300 ml General Appearance: Alert, Oriented X3, Cooperative, No acute distress HEENT: Atraumatic, PERRLA, Other (Rash to face.) Lungs: Clear to auscultation Cardiovascular: Normal S1, Normal S2 Abdomen: Normal bowel sounds Rectal: Normal inspection Extremities: Other (right index finger mild swelling) Neuro: Normal gait, Normal speech Psych/Mental Status: Mental status NL, Mood NL Medications Current Medications Medications Dose Ordered Sig/Susan Route Start Time Stop Time Status Last Admin Dose Admin Vancomycin HCl 0 ml @ 0 mls/hr UD IV 12/28/23 22:30 02/05/24 23:59 Ondansetron HCl 4 mg Q4HP PRN IV 12/28/23 22:30 Docusate Sodium 100 mg BIDPRN PRN PO 12/28/23 22:30 Acetaminophen 650 mg Q6HP PRN PO 12/28/23 22:30 Budesonide 0.5 mg BID NEB 01/09/24 22:00 02/04/24 10:04 0.5 MG Albuterol 2.5 mg Q4HPRN PRN NEB 01/09/24 12:15 02/02/24 18:36 2.5 MG Vancomycin HCl 250 ml @ 200 mls/hr Q10H IV 01/26/24 03:00 02/05/24 03:23 200 MLS/HR Enoxaparin Sodium 40 mg DAILY SC 02/01/24 10:00 02/05/24 09:21 40 MG Amitriptyline HCl 50 mg HS PO 02/01/24 22:00 02/04/24 21:17 50 MG Fluticasone Propionate 50 mcg Q12HR EACHNOSTRI 02/01/24 22:00 02/05/24 09:20 50 MCG Laboratory Results Laboratory Tests 02/01/24 05:15 02/05/24 05:13 Microbiology Microbiology Date/Time Source Procedure Growth Status 12/29/23 06:00 Nose MRSA Screen - Final Complete Labs and/or images reviewed: Labs reviewed by me, Image(s) reviewed by me Assessment/Plan Assessment/Plan Impression: -persistent osteomyelitis to 1st digit of right hand Plan: Events: No events overnight. Swelling persistent to 1st digit of the hand. -continue vancomycin -pain management -topical cream to facial rash Total time spent with patient discussing and formulating plan of care: 35 minutes. This medical document was created using an electronic medical record system with [employer] dictation system. Although this document has been carefully reviewed, there may still be some phonetic and typographical errors. These areas are purely typographical due to imperfections of the software programs, and do not reflect any compromise in the patient's medical care. Plan discussed with: Patient, Other (RN) Date of Service: Feb 05, 2024 Billing Provider: TAYLOR WALLER NP Common Visit Codes: [id number] INP/OBS CARE(HIGH) TAYLOR WALLER NP Feb 05, 2024 11:57
[2024-02-06] VITALS (9 sets, daily range): BP systolic 107–125; BP diastolic 67–82; PULSE 48–96; RESP 16–20; TEMP 97.6–98.3; O2SAT 92–99
[2024-02-06] MEDS ORDERED: VANCOMYCIN PER PHARMACY 0 MG IV SCH (12:30)
[2024-02-06] MEDS: VANCOMYCIN 1.25GM/250ML 250 ML IV SCH (14:04)
--- NOTE | 2024-02-06 16:49 | DVHPN2 ---
Subjective COVERING FOR DR. MUNSON TILL SundayFEB 06. Seen and examined at bedside, Cont Abx. Check BMP tomorrow. Reviewed: Care Plan, H&P, Labs, Medications Changes from previous H/P or p: No Changes General: Per HPI Eyes: No Pain, No Vision change, No Conjunctivae inflammation, No Eyelid inflammation, No Other, No Redness ENT: No Ear pain, No Ear discharge, No Nose pain, No Nose discharge, No Nose congestion, No Mouth pain, No Mouth swelling, No Throat pain, No Throat swelling, No Other Cardiovascular: No Chest Pain, No Palpitations, No Orthopnea, No Paroxysmal Noc. Dyspnea, No Edema, No Lt Headedness, No Other Respiratory: No Cough, No Dry, No Shortness of breath, No SOB with excertion, No Wheezing, No Hemoptysis, No Pleuritic Pain, No Sputum, No Other Gastrointestinal: No Nausea, No Vomiting, No Abdominal Pain, No Diarrhea, No Constipation, No Melena, No Hematochezia, No Other Genitourinary: No Dysuria, No Frequency, No Incontinence, No Hematuria, No Retention, No Other Musculoskeletal: other (right index finger pain and swelling); No neck pain, No shoulder pain, No arm pain, No back pain, No hand pain, No leg pain, No foot pain Skin: No Rash, No Lesions, No Jaundice, No Bruising, No Other Objective Vitals Vital Signs Date Time Temp Pulse Resp B/P (MAP) Pulse Ox O2 Delivery O2 Flow Rate FiO2 02/06/24 13:00 97.6 61 20 125/78 (94) 98 97.6 02/06/24 09:49 Room Air* 0 21 Intake/Output Intake and Output 02/06/24 07:00 Intake Total 1700 ml Output Total 350 ml Balance 1350 ml Intake Oral 1200 ml IV Total 500 ml Output Urine Total 350 ml # Voids 3 General Appearance: Alert, Oriented X3, Cooperative, No acute distress HEENT: Atraumatic, PERRLA, Other (Rash to face.) Lungs: Clear to auscultation Cardiovascular: Normal S1, Normal S2 Abdomen: Normal bowel sounds Rectal: Normal inspection Extremities: Other (right index finger mild swelling) Neuro: Normal gait, Normal speech Psych/Mental Status: Mental status NL, Mood NL Medications Current Medications Medications Dose Ordered Sig/Susan Route Start Time Stop Time Status Last Admin Dose Admin Ondansetron HCl 4 mg Q4HP PRN IV 12/28/23 22:30 Docusate Sodium 100 mg BIDPRN PRN PO 12/28/23 22:30 Acetaminophen 650 mg Q6HP PRN PO 12/28/23 22:30 Budesonide 0.5 mg BID NEB 01/09/24 22:00 02/05/24 21:20 0.5 MG Albuterol 2.5 mg Q4HPRN PRN NEB 01/09/24 12:15 02/02/24 18:36 2.5 MG Enoxaparin Sodium 40 mg DAILY SC 02/01/24 10:00 02/06/24 09:35 40 MG Amitriptyline HCl 50 mg HS PO 02/01/24 22:00 02/06/24 01:46 50 MG Fluticasone Propionate 50 mcg Q12HR EACHNOSTRI 02/01/24 22:00 02/06/24 09:35 50 MCG Vancomycin HCl 0 ml @ 0 mls/hr UD IV 02/06/24 12:30 Vancomycin HCl 250 ml @ 200 mls/hr Q10H IV 02/06/24 13:00 02/06/24 14:04 200 MLS/HR Laboratory Results Laboratory Tests 02/01/24 05:15 02/05/24 05:13 Microbiology Microbiology Date/Time Source Procedure Growth Status 12/29/23 06:00 Nose MRSA Screen - Final Complete Assessment/Plan Assessment/Plan * Cellulitis/osteomyelitis of the right index finger.- Cont Vanco , monitor renal function * Anxiety * DVT Prop- Lovenox Subq Plan discussed with: Patient My Orders Orders - TIMOTHY CABA MD Procedure Category Date Status Time Vancomycin Per PHA 02/06/24 In Process Pharmacy 12:30 Vancomycin PHA 02/06/24 In Process 1.25gm/250ml 13:00 Vancomycin Per RADHA 02/06/24 In Process Pharmacy Protoc 12:39 Creatinine LAB 02/07/24 Verified 05:00 Date of Service: Feb 06, 2024 Billing Provider: TIMOTHY CABA MD Common Visit Codes: [id number] INP/OBS CARE(LOW) TIMOTHY CABA MD Feb 06, 2024 16:49
[2024-02-07] VITALS (13 sets, daily range): BP systolic 99–139; BP diastolic 62–83; PULSE 62–86; RESP 16–18; TEMP 97.9–98.5; O2SAT 95–100
[2024-02-07 07:06] LABS: Chloride 108 mmol/L (98-107); Potassium 3.9 mmol/L (3.5-5.1); Sodium 140 mmol/L (136-145)
[2024-02-07 07:07] LABS: Anion Gap 6 (5-15); Calcium 9.8 mg/dL (8.7-10.4); Carbon Dioxide 26 mmol/L (20-31)
[2024-02-07 07:12] LABS: BUN/Creatinine Ratio 13.5 (10.0-20.0); Blood Urea Nitrogen 14 mg/dL (9-23); Glucose 89 mg/dL (74-106)
--- NOTE | 2024-02-07 20:40 | DVHPN ---
DATE: 02/07/2024 ATTENDING PHYSICIAN: Jeremías Gar MD. SUBJECTIVE: The patient is lying in bed, resting comfortably. He denies any new complaints. He states he still has some decreased range of motion of the right index finger and it occasionally hurts. He states he has been ambulating as I have recommended and exercising the finger. Lengthy discussion with the patient, and I explained to him that if this infection were to get out of control, he could end up losing extremity or getting septic and being very ill depending on the severity, it could be the cause of his demise if the infection is out of control. The patient has now agreed with my plan of repeating an MRI. If the MRI shows the same or worsening, we definitely have to get a surgical consult at a higher level of care where there is hand surgeon available. If it shows improvement, then we can choose to still proceed with surgical consult versus changing to long-term oral antibiotics and discharge patient back to the facility. He is in agreement with the plan. He states that he has no objection if the MRI shows same or worsening to get a consult from Surgery. MRI is ordered. OBJECTIVE: VITAL SIGNS: His temperature is 98 with a blood pressure 139/69, heart rate of 68, respiratory rate 18, O2 sat 95% on room air. HEART: S1, S2 regular. No click, murmur or gallop. LUNGS: Good equal air exchange bilateral, clear to auscultation. ABDOMEN: Soft, nondistended, nontender. Bowel sounds are positive. No mass, guarding or rebound. NEUROLOGIC: Awake, alert, oriented x 4. EXTREMITIES: Right index finger shows mild to moderate swelling. There is no obvious erythema, but there is mild to moderate decreased range of motion at the PIP joint. It is cool to the touch. ASSESSMENT: * Osteomyelitis/cellulitis, right index finger. * Asthma. * Anxiety. PLAN: We will await MRI of the right index finger. In the meantime, we will continue with the vancomycin and Rocephin for the osteomyelitis and cellulitis, Zofran for nausea and vomiting Lovenox for DVT prophylaxis, [place] for pain, albuterol, Pulmicort for the asthma. Again, we will continue to exercise his finger and ambulation. MD CLAU Caruso/PETEY TID: [id number] RECEIPT: [id number]
[2024-02-08] VITALS (16 sets, daily range): BP systolic 105–129; BP diastolic 70–91; PULSE 60–96; RESP 16–20; TEMP 97–99; O2SAT 96–100
[2024-02-08 10:03] LABS: Potassium 4.2 mmol/L (3.5-5.1)
[2024-02-08 10:04] LABS: Calcium 9.9 mg/dL (8.7-10.4)
[2024-02-08 10:09] LABS: BUN/Creatinine Ratio 12.5 (10.0-20.0)
[2024-02-08 10:11] LABS: Albumin 4.4 g/dL (3.2-4.8)
--- NOTE | 2024-02-08 13:08 | DVH ---
CLINICAL INFORMATION: 38 years old, Male; osteomyelitis. TECHNIQUE: Multi sequence multi planar MRI images of the right hand were obtained without IV contrast . COMPARISON: MRI RT HAND MRI NON JOINT on DOS: 01/16/24, MRI RT HAND MRI NON JOINT on DOS: 01/01/24 FINDINGS: Similar-appearing moderate subcutaneous edema in the 2nd digit, centered near the PIP joint . Similar-appearing T2 hyperintense signal throughout the proximal phalanx of the 2nd digit and invol ving the distal phalanx from the base to the distal shaft without significant interval change. There is T1 hypointense signal in the head and distal shaft of the proximal phalanx, which may be seen with osteomyelitis in the appropriate clinical setting, also appearing similar to the prior exam. There a ppears to be some cortical irregularity / deformity at the 1st metatarsal head. Minimal T1 hypointens e signal at the base of the middle phalanx again noted, unchanged. There has been overall minimal int erval change compared to the prior exam. IMPRESSION: Minimal interval change in the soft tissue inflammatory changes and marrow signal abnormality in the proximal and middle phalanges as detailed above. Findings may be due to infection/ osteomyelitis in t he appropriate clinical setting. Correlate with clinical findings. Inflammatory arthropathy could als o have a similar appearance.
--- NOTE | 2024-02-08 21:45 | DVHPN ---
DATE: 02/08/2024 ATTENDING PHYSICIAN: Dr. Jeremías Gar SUBJECTIVE: The patient is resting in bed comfortably. He is in no active distress. He denies any complaints at this time. Specifically, he denies any pain of the right index finger. He denies any cough, shortness of breath nor fever. OBJECTIVE: VITAL SIGNS: His temperature is 98.2 with a blood pressure of 110/79, heart rate of 96, respiratory rate of 18, O2 sat 100% on room air. HEART: S1, S2 regular. No click, murmur or gallop. LUNGS: Good equal air exchange bilateral, clear to auscultation. ABDOMEN: Soft, nondistended, nontender. Bowel sounds positive. No mass, guarding or rebound. NEUROLOGIC: He is awake, alert and oriented x4. No focal deficits. EXTREMITIES: Right index finger without change. LABORATORY DATA: We have a sodium of 141, potassium of 4.2, BUN 14, creatinine 1.12, glucose of 69. ASSESSMENT: * Osteomyelitis/cellulitis, right index finger. * Asthma. * Anxiety. PLAN: We will await the performance of the MRI of the right index finger. In the meantime, we will continue Rocephin and vancomycin, IV antibiotics for the osteomyelitis and cellulitis. [place] for pain, Lovenox for DVT prophylaxis, Zofran for nausea and vomiting and Pulmicort, albuterol for asthma. Again, to reiterate that the patient has agreed that if MRI shows no improvement or worsening, he would be willing to submit to surgical consult. MD CLAU Caruso/EPIFANIO TID: [id number] RECEIPT: [id number]
[2024-02-09] VITALS (8 sets, daily range): BP systolic 110–130; BP diastolic 70–90; PULSE 68–109; RESP 16–20; TEMP 96.5–99.2; O2SAT 98–99
[2024-02-09] MEDS ORDERED: VANCOMYCIN 1.25GM/250ML 250 ML IV ONE (01:15)
[2024-02-09] MEDS: VANCOMYCIN 1GM/200ML PREMIX 200 ML IV ONE (01:24)
[2024-02-09 05:22] LABS: Basophils # (auto) 0 10 ^3/uL (0-0.2); Basophils % (auto) 0.6 % (0.0-2.0); Eosinophils # (auto) 0.4 10 ^3/uL (0-0.8); Eosinophils % (auto) 7.1 % (0.0-7.0); Hematocrit 43.3 % (41.0-53.0); Hemoglobin 15.1 g/dL (13.5-17.5); Lymphocytes # (auto) 1.7 10 ^3/uL (0.4-5.4); Lymphocytes % (auto) 29.9 % (10.0-50.0); Mean Corpuscular Hemoglobin 32.3 pg (28.0-32.0); Mean Corpuscular Hgb Conc. 34.8 g/dL (32.0-36.0); Mean Corpuscular Volume 92.7 fL (80.0-100.0); Monocytes # (auto) 0.7 10 ^3/uL (0-1.3); Monocytes % (auto) 11.9 % (0.0-12.0); Neutrophils # (auto) 2.9 10 ^3/uL (1.6-8.6); Neutrophils % (auto) 50.5 % (37.0-80.0); Nucleated Red Blood Cells % 0.2 %; Platelet Count (auto) 221 10^3/uL (140-450); Red Blood Cells 4.67 10^6/uL (4.5-5.90); Red Cell Distribution Width 13.7 % (11.8-14.3); White Blood Cell 5.8 10^3/uL (4.4-10.8)
[2024-02-09 05:33] LABS: Potassium 3.9 mmol/L (3.5-5.1)
[2024-02-09 05:34] LABS: Calcium 9.7 mg/dL (8.7-10.4)
[2024-02-09 05:39] LABS: BUN/Creatinine Ratio 14.6 (10.0-20.0)
[2024-02-09 05:40] LABS: Albumin 4.2 g/dL (3.2-4.8)
[2024-02-09 05:41] LABS: Phosphorus 4.5 mg/dL (2.4-5.1)
[2024-02-09] MEDS: VANCOMYCIN 1.25GM/250ML 250 ML IV SCH (10:37)
[2024-02-09 17:08] LABS: Erythrocyte Sedimentation Rate 2 mm/hr (0-20)
--- NOTE | 2024-02-09 22:00 | DVHPN ---
DATE: 02/09/2024 ATTENDING PHYSICIAN: Dr. Jeremías Gar SUBJECTIVE: The patient is sitting up in bed. He is watching TV. He is in good spirits. He is comfortable. No active distress. No untoward events have been noted. The patient denies any pain at this time or any untoward events. He denies any cough, shortness of breath nor fever. I informed the patient of the MRI findings. The question is cellulitis/osteomyelitis versus inflammatory arthritis. I informed the patient if any jewel inserter was available then consult them. OBJECTIVE: VITAL SIGNS: Temperature 97.6 with a blood pressure 112/79, heart rate 69, respiratory rate 16, O2 sats 99% on room air. HEART: S1, S2 regular. No click, murmur or gallop. LUNGS: Good equal air exchange bilateral, clear to auscultation. ABDOMEN: Soft, nondistended, nontender. Bowel sounds are positive. There is no mass, guarding or rebound. NEUROLOGIC: He is awake, alert and oriented x4 without focal deficits. EXTREMITIES: Right index finger continues to show mild to moderate swelling with decreased range of motion of the PIP joint of the second finger. It is cool to the touch and nontender at this time. LABORATORY DATA: MRI shows minimal interval change and soft tissue inflammatory changes and marrow signal abnormality in the proximal and middle phalanges as detailed above. Findings may be due to infection/osteomyelitis in the appropriate clinical setting, inflammatory arthropathy could also have a similar appearance. ASSESSMENT: * Osteomyelitis/cellulitis versus inflammatory arthritis of the right index finger. * Asthma. * Anxiety. PLAN: We will order rheumatologic blood tests. Meantime, we will continue with vancomycin and Rocephin IV antibiotics for osteomyelitis and cellulitis, Lovenox for DVT prophylaxis, [place] for pain, Zofran for nausea and vomiting and albuterol for asthma. We will also start patient on NSAIDs as well as IV steroids. Case discussed with the [facility] officer who states that they have been cut down to 2 officers when it was previously 3 because of possible breach in security when the patient was admitted at [facility]. Also informs me that he allows the patient to ambulate at the time when there is less people in the hallways for the sake of safety. I informed officer that despite my order ____ any order and that they feel that walking him in certain time of the day is a risk than they use in their judgment to determine when a good time to have him ambulate. MD CLAU Caruso/CARMEN/MARCELINA TID: [id number] RECEIPT: [id number]
[2024-02-09] MEDS: methylPREDNISolone SOD SUCC 125 MG/2 ML VL IV SCH (22:49)
[2024-02-09] MEDS: NAPROXEN 500 MG TAB PO SCH (22:52)
[2024-02-10] VITALS (9 sets, daily range): BP systolic 116–143; BP diastolic 69–86; PULSE 65–124; RESP 17–20; TEMP 97.5–98.6; O2SAT 95–99
--- NOTE | 2024-02-10 19:44 | DVHPN ---
DATE: 02/10/2024 ATTENDING PHYSICIAN: Jeremías Gar MD. SUBJECTIVE: The patient is again resting in bed. He is comfortable. He is in no active distress. He offers no complaints. No untoward events have been noted. OBJECTIVE: VITAL SIGNS: His temperature is 97.9 with blood pressure 116/72, heart rate of 80, respiratory rate 17, O2 sats 97% on room air. PE is without change. LABORATORY DATA: We have RF, PCCP and AMANDA are all pending. ASSESSMENT: * Osteomyelitis/cellulitis versus inflammatory arthritis, right index finger. * Asthma. * Anxiety. PLAN: We will await results of the rheumatologic blood test. In the meantime, we will continue with the vancomycin and Rocephin IV antibiotics for possible osteomyelitis and cellulitis, Lovenox for DVT prophylaxis, naproxen and Solu-Medrol for the possible inflammatory arthritis, [place] for pain, Zofran for nausea and vomiting albuterol and Pulmicort for the asthma. Jeremías Gar MD JV/PETEY TID: [id number] RECEIPT: [id number]
[2024-02-11] VITALS (9 sets, daily range): BP systolic 115–136; BP diastolic 62–89; PULSE 67–111; RESP 16–20; TEMP 97.9–98.2; O2SAT 97–100
[2024-02-11 06:34] LABS: Basophils # (auto) 0 10 ^3/uL (0-0.2); Basophils % (auto) 0.1 % (0.0-2.0); Eosinophils # (auto) 0 10 ^3/uL (0-0.8); Hematocrit 44.1 % (41.0-53.0); Hemoglobin 15.4 g/dL (13.5-17.5); Lymphocytes # (auto) 1.2 10 ^3/uL (0.4-5.4); Lymphocytes % (auto) 7.9 % (10.0-50.0); Mean Corpuscular Hemoglobin 32.6 pg (28.0-32.0); Mean Corpuscular Volume 93.2 fL (80.0-100.0); Monocytes # (auto) 0.5 10 ^3/uL (0-1.3); Monocytes % (auto) 3.2 % (0.0-12.0); Neutrophils # (auto) 13.7 10 ^3/uL (1.6-8.6); Neutrophils % (auto) 88.8 % (37.0-80.0); Platelet Count (auto) 241 10^3/uL (140-450); Red Blood Cells 4.73 10^6/uL (4.5-5.90); Red Cell Distribution Width 13.5 % (11.8-14.3); White Blood Cell 15.4 10^3/uL (4.4-10.8)
[2024-02-11] MEDS ORDERED: methylPREDNISolone SOD SUCC 125 MG/2 ML VL IV SCH (12:30)
--- NOTE | 2024-02-11 19:05 | DVHPN ---
DATE: 02/11/2024 ATTENDING PHYSICIAN: Jeremías Gar MD. SUBJECTIVE: The patient is sitting up in bed, watching TV. He is in very good spirits, smiles as I approach. He denies any complaints at this time. No untoward events have been noted. Specifically, denies any pain, cough, shortness of breath nor fever. The patient informs me that it seems that since he was started on the steroids, he has been able to get more range of motion of his index finger and more stressful he can actually pushed up against his thumb and some reduction in his swelling and pain. OBJECTIVE: VITAL SIGNS: His temperature is 97.9 with a blood pressure 135/87, heart rate of 78, respiratory rate 16, O2 sats 100% on room air. HEART: S1, S2 regular. No click, murmur or gallop. LUNGS: Good equal air exchange bilateral, clear to auscultation. ABDOMEN: Soft, nondistended, nontender. Bowel sounds are positive. There is no mass, guarding or rebound. NEUROLOGIC: He is awake, alert, oriented x 4 without focal deficit. EXTREMITIES: Right index finger shows minimal swelling. It is cool to the touch, the patient shows improved range of motion. ASSESSMENT: * Osteomyelitis/cellulitis versus inflammatory arthritis of the right index finger. * Asthma. * Anxiety. PLAN: Case was discussed with grievance manager, Dr. Monaco, he will consult on the patient. In the meantime, we will continue with the IV antibiotics using vancomycin and Rocephin for the osteomyelitis/cellulitis. Continue with Lovenox for DVT prophylaxis, Zofran for nausea and vomiting, albuterol and Pulmicort for asthma and [place] for pain. We will continue with NSAIDs and IV steroids with reduction of the dose of the steroids. MD CLAU Caruso/PETEY TID: [id number] RECEIPT: [id number]
--- NOTE | 2024-02-11 20:23 | DVHINCON2 ---
Date of service: Feb 11, [address] Gar Reason for Consultation right finger pain History of Present Illness 38 y/o M with hx of osteomyelitis of right 2nd PIP joint after a wound with a hx of purulent drainage and wound dehiscence. He is admitted for mcc IV an tibiotic therapy. MRI hand suggested osteomyelitis. Denies fevers, chills, joint pain in other areas, rashes. No family hx of autoimmune disease. Family History: Diabetes mellitus G8 FATHER Allergies: Coded Allergies: NO KNOWN ALLERGIES (Unverified , 12/28/23) Home Meds No Active Prescriptions or Reported Meds Current Medications Current Medications Medications (Trade) Dose Ordered Sig/Susan Route PRN Reason Start Time Stop Time Status Last Admin Methylprednisolone Sodium Succinate (Solu Medrol) 80 mg BID IV 02/11/24 12:30 02/11/24 13:07 DC Methylprednisolone Sodium Succinate (Solu Medrol) 80 mg BID IV 02/11/24 22:00 Review of Systems as above Vital Signs Vital Signs Date Time Temp Pulse Resp B/P (MAP) Pulse Ox O2 Delivery O2 Flow Rate FiO2 02/11/24 17:19 98.1 87 17 115/75 (88) 99 98.1 02/11/24 10:00 Room Air 0.0 02/11/24 10:00 21 Physical Exam right 2nd PIP joint appears swollen but not ttp with some limited ROM on flexion of the digit at the level of the PIP joint Labs/Diagnostic Data Labs Test 02/11/24 05:05 02/10/24 04:52 02/09/24 15:35 02/09/24 05:05 Range/Units White Blood Count 15.4 #H 4.4-10.8 10^3/uL Red Blood Count 4.73 4.5-5.90 10^6/uL Hemoglobin 15.4 13.5-17.5 g/dL Hematocrit 44.1 41.0-53.0 % Mean Corpuscular Volume 93.2 80.0-100.0 fL Mean Corpuscular Hemoglobin 32.6 H 28.0-32.0 pg Mean Corpuscular Hemoglobin Concent 35.0 32.0-36.0 g/dL Red Cell Distribution Width 13.5 11.8-14.3 % Platelet Count 241 140-450 10^3/uL Mean Platelet Volume 8.9 6.9-10.8 fL Neutrophils (%) (Auto) 88.8 H 37.0-80.0 % Lymphocytes (%) (Auto) 7.9 L 10.0-50.0 % Monocytes (%) (Auto) 3.2 0.0-12.0 % Eosinophils (%) (Auto) 0.0 0.0-7.0 % Basophils (%) (Auto) 0.1 0.0-2.0 % Neutrophils # (Auto) 13.7 H 1.6-8.6 10 ^3/uL Lymphocytes # (Auto) 1.2 0.4-5.4 10 ^3/uL Monocytes # (Auto) 0.5 0-1.3 10 ^3/uL Eosinophils # (Auto) 0 0-0.8 10 ^3/uL Basophils # (Auto) 0 0-0.2 10 ^3/uL Nucleated Red Blood Cells 0.0 % Creatinine 1.06 0.700-1.30 mg/dL Glomerular Filtration Rate Calc 93 >90 mL/min C-Reactive Protein High Sensitivity 0.08 <1.0 mg/dL Erythrocyte Sedimentation Rate 2 0-20 mm/hr Sodium Level 139 136-145 mmol/L Potassium Level 3.9 3.5-5.1 mmol/L Chloride Level 108 H 98-107 mmol/L Carbon Dioxide Level 26 20-31 mmol/L Anion Gap 5 5-15 Blood Urea Nitrogen 15 9-23 mg/dL Estimated GFR () 105 mL/min Estimated GFR (Non- 87 mL/min BUN/Creatinine Ratio 14.6 10.0-20.0 Serum Glucose 93 74-106 mg/dL Uric Acid 4.4 3.7-9.2 mg/dL Calcium Level 9.7 8.7-10.4 mg/dL Phosphorus Level 4.5 2.4-5.1 mg/dL Albumin 4.2 3.2-4.8 g/dL Test 02/08/24 13:50 01/22/24 17:28 01/16/24 05:41 01/15/24 06:02 Range/Units Vancomycin Level Trough 14.8 H 5-10 ug/mL Random Vancomycin Level 13.9 H 5-10 ug/mL Hepatitis B Surface Antigen Negative Negative Hepatitis B Surface Antibody Negative Negative Hepatitis C Antibody Negative Negative HIV (1&2) Antibody Negative Negative Total Bilirubin 0.4 0.2-1.0 mg/dL Aspartate Amino Transferase (AST) 20 13-40 U/L Alanine Aminotransferase (ALT) 63 H 7-40 U/L Alkaline Phosphatase 65 46-116 U/L Total Protein 6.5 5.7-8.2 g/dL Test 12/28/23 20:54 12/28/23 20:01 Range/Units Lactic Acid Level 1.0 0.4-2.0 mmol/L Hepatitis A IgM Antibody Negative Hepatitis B Core IgM Antibody Negative Microbiology Date/Time Source Procedure Growth Status 12/29/23 06:00 Nose MRSA Screen - Final Complete Problems(with codes): (1) Finger osteomyelitis, right Plan/Recommendation lower suspicion for autoimmune vs crystalline arthritis given normal uric acid, lack of other joint involvement. At this point osteomyelitis is favored but crystalline arthritis overlap cannot be completely ruled out since uric acid can be normal in cases of gout. -f/u RF, CCP -ESR, CRP normal which is reassuring -would discontinue IV solumedrol given he has had some improvement on it already and reassess for disease activity in the 2nd PIP joint. -if there is any further discharge in the future from the right digit, I would recommend sending it for cell count, culture and crystal evaluation Plan discussed with: Patient JEZ SHEPHERD MD Feb 11, 2024 20:23
[2024-02-11] MEDS: methylPREDNISolone SOD SUCC 40 MG/ML VL IV SCH (21:51)
[2024-02-12] VITALS (8 sets, daily range): BP systolic 104–140; BP diastolic 66–90; PULSE 71–97; RESP 16–20; TEMP 97.6–98.6; O2SAT 95–98
[2024-02-12 05:40] LABS: Basophils # (auto) 0 10 ^3/uL (0-0.2); Eosinophils # (auto) 0 10 ^3/uL (0-0.8); Hematocrit 40.1 % (41.0-53.0); Hemoglobin 13.9 g/dL (13.5-17.5); Lymphocytes % (auto) 6.5 % (10.0-50.0); Mean Corpuscular Hemoglobin 32.4 pg (28.0-32.0); Mean Corpuscular Hgb Conc. 34.6 g/dL (32.0-36.0); Mean Corpuscular Volume 93.4 fL (80.0-100.0); Monocytes # (auto) 0.8 10 ^3/uL (0-1.3); Monocytes % (auto) 5.2 % (0.0-12.0); Neutrophils # (auto) 14.1 10 ^3/uL (1.6-8.6); Neutrophils % (auto) 88.3 % (37.0-80.0); Nucleated Red Blood Cells % 0.1 %; Platelet Count (auto) 230 10^3/uL (140-450); Red Cell Distribution Width 13.5 % (11.8-14.3); White Blood Cell 15.9 10^3/uL (4.4-10.8)
[2024-02-12 08:06] LABS: Rheumatoid Arthritis Factor <10.0 IU/mL (<14.0)
[2024-02-12] MEDS: VANCOMYCIN 1GM/200ML PREMIX 200 ML IV ONE (10:32)
[2024-02-12 15:07] LABS: Anti-Nuclear Antibody Direct Negative (Negative)
--- NOTE | 2024-02-12 19:26 | DVHDS ---
DATE OF DISCHARGE: 02/12/2024 DISCHARGE/TRANSFER SUMMARY CHIEF COMPLAINT ON ADMISSION: Right index finger pain, swelling, infection. HISTORY OF PRESENT ILLNESS: This is a 38-year-old male, [employer] inmate, who was originally admitted at [facility], found to have osteomyelitis of the right index finger and was being treated with IV antibiotics but during that stay there was a breach of security and the patient was immediately discharged and taken back [facility]. After approximately 2 weeks, he was then sent to [facility] on 12/28/2023 with same complaint of cellulitis and osteomyelitis of the right index finger. The patient was admitted for further management. ADMITTING DIAGNOSES: * Cellulitis and osteomyelitis of the right index finger. * Asthma. * Anxiety. HOSPITAL COURSE: He was treated with IV antibiotics using Rocephin and vancomycin. Follow up MRI performed on 02/08/2024 revealed minimal interval change in the soft tissue inflammatory changes and marrow signal abnormality in the proximal and middle phalanges. Findings may be due to infection/osteomyelitis in the appropriate clinical setting. Inflammatory arthropathy could also have a similar appearance. Due to the finding of possible inflammatory arthropathy, consultation with Rheumatology, Dr. Monaco, was obtained. Impression was osteomyelitis favored but crystalline arthritis overlap cannot be completely ruled out. Case is discussed again with the patient at length. I explained to him that if this is an osteomyelitis and if it should worsen, he stands lose more in the sense that it maybe more than just a finger amputated. He now agrees to evaluation by hand surgeon. I have put the order for transfer to higher level of care for hand specialty service with diagnosis of osteomyelitis and failed response to IV antibiotics x8 weeks. CURRENT MEDICATIONS: The patient is taking, please see rec transfer. TRANSFER/DISCHARGE DIAGNOSES: * Osteomyelitis/cellulitis, right index finger. * Right inflammatory arthritis less likely. * Asthma. * Anxiety. CONDITION ON DISCHARGE: Stable. MD CLAU Caruso/HAI TID: [id number] RECEIPT: [id number]
[2024-02-13] VITALS (9 sets, daily range): BP systolic 99–133; BP diastolic 52–81; PULSE 68–99; RESP 16–18; TEMP 97.2–98.6; O2SAT 97–100
--- NOTE | 2024-02-13 17:21 | DVHPN ---
DATE: 02/13/2024 SUBJECTIVE: The patient is currently again sitting up in bed. He is in good spirits. He is comfortable. He is in no active distress. He denies any new complaints. No untoward events have been noted by nursing staff. We are awaiting a transfer to higher level of care once the patient is accepted by a tertiary institution. OBJECTIVE: VITAL SIGNS: His temperature is 97.3 with a blood pressure 99/52, heart rate of 82, respiratory rate 16, O2 sats 100% on room air. HEART: S1, S2 regular. No click, murmur or gallop. LUNGS: Good equal air exchange bilateral, clear to auscultation. ABDOMEN: Soft, nondistended, nontender. Bowel sounds are positive. No mass, guarding or rebound. NEUROLOGIC: He is awake, alert, oriented x4 without focal deficits. EXTREMITIES: Right index finger continues to show mild swelling. It is mildly tender on palpation. It is cool to the touch. No erythema. Range of motion remains decreased. ASSESSMENT: * Osteomyelitis/cellulitis, right index finger. * Right index finger inflammatory arthritis, less likely. * Asthma. * Anxiety. PLAN: We will continue with IV antibiotics using vancomycin and Rocephin for the osteomyelitis and cellulitis. Continue with Lovenox for DVT prophylaxis, albuterol p.r.n. for asthma, [place] for pain, Zofran for nausea and vomiting. We will continue with the NSAIDs and IV steroids for the possible inflammatory arthritis. MD CLAU Caruso/KOLBY/RAJNI TID: [id number] RECEIPT: [id number]
[2024-02-13] MEDS: methylPREDNISolone SOD SUCC 125 MG/2 ML VL IV SCH (21:17)
[2024-02-14] VITALS (9 sets, daily range): BP systolic 113–133; BP diastolic 74–94; PULSE 65–106; RESP 16–20; TEMP 97.9–99.3; O2SAT 95–98
[2024-02-14 10:21] LABS: Basophils # (auto) 0 10 ^3/uL (0-0.2); Basophils % (auto) 0.1 % (0.0-2.0); Eosinophils # (auto) 0 10 ^3/uL (0-0.8); Hematocrit 43.6 % (41.0-53.0); Hemoglobin 14.8 g/dL (13.5-17.5); Lymphocytes # (auto) 1.8 10 ^3/uL (0.4-5.4); Lymphocytes % (auto) 14.5 % (10.0-50.0); Mean Corpuscular Hemoglobin 31.8 pg (28.0-32.0); Mean Corpuscular Volume 93.6 fL (80.0-100.0); Monocytes # (auto) 1.2 10 ^3/uL (0-1.3); Monocytes % (auto) 9.5 % (0.0-12.0); Neutrophils # (auto) 9.2 10 ^3/uL (1.6-8.6); Neutrophils % (auto) 75.9 % (37.0-80.0); Nucleated Red Blood Cells % 0.1 %; Platelet Count (auto) 234 10^3/uL (140-450); Red Blood Cells 4.66 10^6/uL (4.5-5.90); Red Cell Distribution Width 13.5 % (11.8-14.3); White Blood Cell 12.2 10^3/uL (4.4-10.8)
[2024-02-14] MEDS: methylPREDNISolone SOD SUCC 40 MG/ML VL IV SCH (10:52)
[2024-02-14] MEDS: DOCUSATE SOD 100 MG CAP PO PRN (16:19)
--- NOTE | 2024-02-14 20:27 | DVHPN ---
DATE: 02/14/2024 SUBJECTIVE: The patient is sitting up in bed. He remains in good spirits. He offers no complaints. He is comfortable, in no active distress. He states that he feels his swelling of the index finger is continuing to improve, which he attributes to the steroids and states that his range of motion is also improved since starting the steroids. I had a lengthy conversation with the patient and informed him that I was called by [facility] and spoke with Dr. Laboy, the hospitalist. After discussing the case, she agreed to accept the patient for transfer, but unfortunately there is no bed available at this time and as soon as one comes up, they will transfer the patient. OBJECTIVE: VITAL SIGNS: His temperature is 98 with a blood pressure 122/84, heart rate of 65, respiratory rate of 18, O2 sats 96% on room air. HEART: S1, S2 regular. No click, murmur, rub or gallop. LUNGS: Good equal air exchange bilateral, clear to auscultation. ABDOMEN: Soft, nondistended, nontender. Bowel sounds positive. No mass, guarding or rebound. NEUROLOGIC: Awake, alert, oriented x4. EXTREMITIES: Right index finger shows [id number] swelling. There is mild decreased range of motion. It is cool to the touch. Questionable mild tenderness. ASSESSMENT: * Osteomyelitis/cellulitis, right index finger. * Right index finger inflammatory arthritis, less likely. * Asthma. * Anxiety. PLAN: We will continue with the IV antibiotics using Rocephin and vancomycin for osteomyelitis. We will continue with [place] for the pain. We will continue with IV steroids and NSAIDs for possible inflammatory arthritis, and I will reduce Solu-Medrol to 40 mg b.i.d. today. We will also continue with Lovenox for DVT prophylaxis, Zofran for nausea and vomiting, albuterol for asthma. MD CLAU Caruso/KOLBY/RIAN TID: [id number] RECEIPT: [id number]
[2024-02-15] VITALS (7 sets, daily range): BP systolic 108–134; BP diastolic 65–92; PULSE 61–114; RESP 15–19; TEMP 97.8–98.7; O2SAT 95–100
--- NOTE | 2024-02-15 20:43 | DVHPNRES ---
Progress Note Date Seen: Feb 15, 2024 Resident Creating Document: YARY KHAN RESIDENT Medical Necessity Reason Pt with a Central, PICC or Fol: No Subjective Review of Systems A 38-year-old male with a past medical history of anxiety presents with a chief complaint of right index finger pain. The patient was previously admitted to [facility] three weeks ago and treated for osteomyelitis of the right index finger with vancomycin. He reports mild pain in the right index finger at the time of examination. Additionally, the patient complains of left-sided abdominal pain following a Lovenox injection. He denies experiencing fever, chills, shortness of breath, or palpitations. The patient was discharged on 02-12-24 to a higher level of care and is currently awaiting for Bed Availability . Objective vital signs Vital Sign Date Time Temp Pulse Resp B/P (MAP) Pulse Ox O2 Delivery O2 Flow Rate FiO2 02/15/24 17:00 98.5 93 17 134/92 (106) 97 98.5 02/15/24 10:00 Room Air* 0 21 Total Intake and Output 02/14/24 02/14/24 02/15/24 15:00 23:00 07:00 Intake Total 1640 ml 800 ml Output Total 1400 ml 600 ml Balance 240 ml 200 ml medications Current Medications Medications Dose Ordered Sig/Susan Route Start Time Stop Time Status Last Admin Dose Admin Ondansetron HCl 4 mg Q4HP PRN IV 12/28/23 22:30 Docusate Sodium 100 mg BIDPRN PRN PO 12/28/23 22:30 02/14/24 16:19 100 MG Acetaminophen 650 mg Q6HP PRN PO 12/28/23 22:30 Enoxaparin Sodium 40 mg DAILY SC 02/01/24 10:00 02/15/24 09:39 40 MG Amitriptyline HCl 50 mg HS PO 02/01/24 22:00 02/14/24 21:26 50 MG Fluticasone Propionate 50 mcg Q12HR EACHNOSTRI 02/01/24 22:00 02/15/24 09:40 50 MCG Vancomycin HCl 0 ml @ 0 mls/hr UD IV 02/06/24 12:30 Vancomycin HCl 250 ml @ 200 mls/hr Q10H IV 02/09/24 11:00 02/15/24 17:15 200 MLS/HR Naproxen 500 mg BID PO 02/09/24 22:00 02/15/24 09:39 500 MG Methylprednisolone Sodium Succinate 40 mg BID IV 02/14/24 10:45 02/14/24 21:41 40 MG Examination GENERAL: Not in acute distress. HEENT: EOMI, Moist mucous membranes. No scleral icterus. No cervical lymphadenopathy. LUNGS: Clear to auscultation bilaterally. No accessory muscle use. CARDIOVASCULAR: Regular rate and rhythm. No murmur. No JVD. ABDOMEN: Soft, - Abdomen: left-sided pain reported post-Lovenox injection EXTREMITIES: No edema. Right index finger: mild tenderness, SKIN: No rashes or lesions. Warm. NEUROLOGIC: Alert and oriented X3 laboratory and microbiology Laboratory Tests 02/14/24 09:50 02/09/24 05:05 Test 02/09/24 05:05 Range/Units Serum Glucose 93 74-106 mg/dL Microbiology Date/Time Source Procedure Growth Status 12/29/23 06:00 Nose MRSA Screen - Final Complete Problem List/Assessment/Plan Problem List/Assessment/Plan Assessment and Plan: # Right index finger Osteomyelitis/cellulitis # Right index finger inflammatory arthritis, - IV antibiotics using Rocephin and vancomycin for osteomyelitis. - Reassess the right index finger for signs of infection or inflammation. - Continue monitoring the patient's pain and provide appropriate pain management as needed. # asthma - continue breathing treatment p.r.n. - currently patient is on room air - no wheezing or crackles - follow up outpatient pulmonology # Anxiety: - Continue monitoring the patient's anxiety levels and provide appropriate support and interventions as needed. - Encourage the patient to follow up with their primary care provider or mental health professional for ongoing management of their anxiety. # Discharge and follow-up: - The patient was Transferred on 02-12-24 to a higher level of care and is awaiting For Bed - Ensure appropriate follow-up appointments are scheduled with the patient's primary care provider and any necessary specialists. Goal of care discussed with patient for more than 17 minute: Full code Case discussed with Dr. Mensah Plan discussed with: Patient Dietary Evaluation Review Comments: Continue current plan of care Expected Outcomes/Goals: F/U in 3-5 days Date of Service: Feb 15, 2024 Billing Provider: TIMOTHY MENSAH MD Common Visit Codes: [id number] INP/OBS CARE(LOW) YARY KHAN RESIDENT Feb 15, 2024 20:43 TIMOTHY MENSAH MD Feb 18, 2024 08:20
[2024-02-16] VITALS (9 sets, daily range): BP systolic 97–131; BP diastolic 57–86; PULSE 80–100; RESP 18–20; TEMP 97.6–98.7; O2SAT 95–97
[2024-02-17] VITALS (7 sets, daily range): BP systolic 119–138; BP diastolic 76–86; PULSE 61–96; RESP 13–20; TEMP 97.3–98.8; O2SAT 92–96
[2024-02-17 06:06] LABS: Basophils # (auto) 0 10 ^3/uL (0-0.2); Eosinophils # (auto) 0 10 ^3/uL (0-0.8); Hematocrit 43.7 % (41.0-53.0); Lymphocytes # (auto) 1.1 10 ^3/uL (0.4-5.4); Lymphocytes % (auto) 8.4 % (10.0-50.0); Mean Corpuscular Hemoglobin 31.9 pg (28.0-32.0); Mean Corpuscular Hgb Conc. 34.4 g/dL (32.0-36.0); Mean Corpuscular Volume 92.9 fL (80.0-100.0); Monocytes # (auto) 0.6 10 ^3/uL (0-1.3); Monocytes % (auto) 4.5 % (0.0-12.0); Neutrophils # (auto) 11.2 10 ^3/uL (1.6-8.6); Neutrophils % (auto) 87.1 % (37.0-80.0); Platelet Count (auto) 246 10^3/uL (140-450); Red Cell Distribution Width 13.6 % (11.8-14.3); White Blood Cell 12.9 10^3/uL (4.4-10.8)
[2024-02-17] MEDS: VANCOMYCIN 1.25GM/250ML 250 ML IV SCH (17:19)
[2024-02-18] VITALS (8 sets, daily range): BP systolic 117–139; BP diastolic 56–88; PULSE 58–87; RESP 17–21; TEMP 96.1–99.3; O2SAT 94–100
[2024-02-18 05:49] LABS: Basophils # (auto) 0 10 ^3/uL (0-0.2); Eosinophils # (auto) 0 10 ^3/uL (0-0.8); Eosinophils % (auto) 0.1 % (0.0-7.0); Hematocrit 42.1 % (41.0-53.0); Hemoglobin 14.5 g/dL (13.5-17.5); Lymphocytes # (auto) 1.1 10 ^3/uL (0.4-5.4); Lymphocytes % (auto) 9.2 % (10.0-50.0); Mean Corpuscular Hemoglobin 32.2 pg (28.0-32.0); Mean Corpuscular Hgb Conc. 34.4 g/dL (32.0-36.0); Mean Corpuscular Volume 93.6 fL (80.0-100.0); Monocytes # (auto) 0.8 10 ^3/uL (0-1.3); Neutrophils % (auto) 83.7 % (37.0-80.0); Platelet Count (auto) 249 10^3/uL (140-450); Red Blood Cells 4.49 10^6/uL (4.5-5.90); Red Cell Distribution Width 13.7 % (11.8-14.3)
--- NOTE | 2024-02-18 10:47 | DVHPN2 ---
Subjective No change Reviewed: Care Plan, H&P, Labs, Medications Changes from previous H/P or p: No Changes General: Per HPI Eyes: No Pain, No Vision change, No Conjunctivae inflammation, No Eyelid inflammation, No Other, No Redness ENT: No Ear pain, No Ear discharge, No Nose pain, No Nose discharge, No Nose congestion, No Mouth pain, No Mouth swelling, No Throat pain, No Throat swelling, No Other Cardiovascular: No Chest Pain, No Palpitations, No Orthopnea, No Paroxysmal Noc. Dyspnea, No Edema, No Lt Headedness, No Other Respiratory: No Cough, No Dry, No Shortness of breath, No SOB with excertion, No Wheezing, No Hemoptysis, No Pleuritic Pain, No Sputum, No Other Gastrointestinal: No Nausea, No Vomiting, No Abdominal Pain, No Diarrhea, No Constipation, No Melena, No Hematochezia, No Other Genitourinary: No Dysuria, No Frequency, No Incontinence, No Hematuria, No Retention, No Other Musculoskeletal: other (right index finger pain and swelling); No neck pain, No shoulder pain, No arm pain, No back pain, No hand pain, No leg pain, No foot pain Skin: No Rash, No Lesions, No Jaundice, No Bruising, No Other Objective Vitals Vital Signs Date Time Temp Pulse Resp B/P (MAP) Pulse Ox O2 Delivery O2 Flow Rate FiO2 02/18/24 09:00 98.4 71 20 124/78 (93) 94 98.4 02/17/24 20:00 Room Air* 0 21 Intake/Output Intake and Output 02/18/24 07:00 Intake Total 2810 ml Output Total 3325 ml Balance -515 ml Intake Oral 2060 ml IV Total 750 ml Output Urine Total 3325 ml # Bowel Movements 1 General Appearance: Alert, Oriented X3, Cooperative, No acute distress HEENT: Atraumatic, PERRLA, Other (Rash to face.) Lungs: Clear to auscultation Cardiovascular: Normal S1, Normal S2 Abdomen: Normal bowel sounds Rectal: Normal inspection Extremities: Other (right index finger mild swelling) Neuro: Normal gait, Normal speech Psych/Mental Status: Mental status NL, Mood NL Medications Current Medications Medications Dose Ordered Sig/Susan Route Start Time Stop Time Status Last Admin Dose Admin Ondansetron HCl 4 mg Q4HP PRN IV 12/28/23 22:30 Docusate Sodium 100 mg BIDPRN PRN PO 12/28/23 22:30 02/18/24 09:45 100 MG Acetaminophen 650 mg Q6HP PRN PO 12/28/23 22:30 Enoxaparin Sodium 40 mg DAILY SC 02/01/24 10:00 02/18/24 09:27 40 MG Amitriptyline HCl 50 mg HS PO 02/01/24 22:00 02/17/24 22:55 50 MG Fluticasone Propionate 50 mcg Q12HR EACHNOSTRI 02/01/24 22:00 02/15/24 21:28 50 MCG Vancomycin HCl 0 ml @ 0 mls/hr UD IV 02/06/24 12:30 Naproxen 500 mg BID PO 02/09/24 22:00 02/18/24 09:28 500 MG Methylprednisolone Sodium Succinate 40 mg BID IV 02/14/24 10:45 02/18/24 09:27 40 MG Vancomycin HCl 250 ml @ 200 mls/hr Q8H IV 02/17/24 17:00 02/18/24 09:27 200 MLS/HR Laboratory Results Laboratory Tests 02/09/24 05:05 02/18/24 05:10 Microbiology Microbiology Date/Time Source Procedure Growth Status 12/29/23 06:00 Nose MRSA Screen - Final Complete Assessment/Plan Assessment/Plan * Cellulitis/osteomyelitis of the right index finger.- Cont Vanco , monitor renal function * Anxiety * DVT Prop- Lovenox Subq Plan discussed with: Other Date of Service: Feb 16, 2024 Billing Provider: TIMOTHY CABA MD Common Visit Codes: [id number] INP/OBS CARE(LOW) TIMOTHY CABA MD Feb 18, 2024 10:47
--- NOTE | 2024-02-18 10:51 | DVHPN2 ---
Subjective No change. Cont Abx Reviewed: Care Plan, H&P, Labs, Medications Changes from previous H/P or p: No Changes General: Per HPI Eyes: No Pain, No Vision change, No Conjunctivae inflammation, No Eyelid inflammation, No Other, No Redness ENT: No Ear pain, No Ear discharge, No Nose pain, No Nose discharge, No Nose congestion, No Mouth pain, No Mouth swelling, No Throat pain, No Throat swelling, No Other Cardiovascular: No Chest Pain, No Palpitations, No Orthopnea, No Paroxysmal Noc. Dyspnea, No Edema, No Lt Headedness, No Other Respiratory: No Cough, No Dry, No Shortness of breath, No SOB with excertion, No Wheezing, No Hemoptysis, No Pleuritic Pain, No Sputum, No Other Gastrointestinal: No Nausea, No Vomiting, No Abdominal Pain, No Diarrhea, No Constipation, No Melena, No Hematochezia, No Other Genitourinary: No Dysuria, No Frequency, No Incontinence, No Hematuria, No Retention, No Other Musculoskeletal: other (right index finger pain and swelling); No neck pain, No shoulder pain, No arm pain, No back pain, No hand pain, No leg pain, No foot pain Skin: No Rash, No Lesions, No Jaundice, No Bruising, No Other Objective Vitals Vital Signs Date Time Temp Pulse Resp B/P (MAP) Pulse Ox O2 Delivery O2 Flow Rate FiO2 02/18/24 09:00 98.4 71 20 124/78 (93) 94 98.4 02/17/24 20:00 Room Air* 0 21 Intake/Output Intake and Output 02/18/24 07:00 Intake Total 2810 ml Output Total 3325 ml Balance -515 ml Intake Oral 2060 ml IV Total 750 ml Output Urine Total 3325 ml # Bowel Movements 1 General Appearance: Alert, Oriented X3, Cooperative, No acute distress HEENT: Atraumatic, PERRLA, Other (Rash to face.) Lungs: Clear to auscultation Cardiovascular: Normal S1, Normal S2 Abdomen: Normal bowel sounds Rectal: Normal inspection Extremities: Other (right index finger mild swelling) Neuro: Normal gait, Normal speech Psych/Mental Status: Mental status NL, Mood NL Medications Current Medications Medications Dose Ordered Sig/Susan Route Start Time Stop Time Status Last Admin Dose Admin Ondansetron HCl 4 mg Q4HP PRN IV 12/28/23 22:30 Docusate Sodium 100 mg BIDPRN PRN PO 12/28/23 22:30 02/18/24 09:45 100 MG Acetaminophen 650 mg Q6HP PRN PO 12/28/23 22:30 Enoxaparin Sodium 40 mg DAILY SC 02/01/24 10:00 02/18/24 09:27 40 MG Amitriptyline HCl 50 mg HS PO 02/01/24 22:00 02/17/24 22:55 50 MG Fluticasone Propionate 50 mcg Q12HR EACHNOSTRI 02/01/24 22:00 02/15/24 21:28 50 MCG Vancomycin HCl 0 ml @ 0 mls/hr UD IV 02/06/24 12:30 Naproxen 500 mg BID PO 02/09/24 22:00 02/18/24 09:28 500 MG Methylprednisolone Sodium Succinate 40 mg BID IV 02/14/24 10:45 02/18/24 09:27 40 MG Vancomycin HCl 250 ml @ 200 mls/hr Q8H IV 02/17/24 17:00 02/18/24 09:27 200 MLS/HR Laboratory Results Laboratory Tests 02/09/24 05:05 02/18/24 05:10 Microbiology Microbiology Date/Time Source Procedure Growth Status 12/29/23 06:00 Nose MRSA Screen - Final Complete Assessment/Plan Assessment/Plan * Cellulitis/osteomyelitis of the right index finger.- Cont Vanco , monitor renal function * Anxiety * DVT Prop- Lovenox Subq Plan discussed with: Other Date of Service: Feb 17, 2024 Billing Provider: TIMOTHY CABA MD Common Visit Codes: [id number] INP/OBS CARE(LOW) TIMOTHY CABA MD Feb 18, 2024 10:51
--- NOTE | 2024-02-18 10:52 | DVHPN2 ---
Subjective No change. Cont Abx. Awaiting transfer to [facility]. Walking in the hallways, swelling improved. Reviewed: Care Plan, H&P, Labs, Medications Changes from previous H/P or p: No Changes General: Per HPI Eyes: No Pain, No Vision change, No Conjunctivae inflammation, No Eyelid inflammation, No Other, No Redness ENT: No Ear pain, No Ear discharge, No Nose pain, No Nose discharge, No Nose congestion, No Mouth pain, No Mouth swelling, No Throat pain, No Throat swelling, No Other Cardiovascular: No Chest Pain, No Palpitations, No Orthopnea, No Paroxysmal Noc. Dyspnea, No Edema, No Lt Headedness, No Other Respiratory: No Cough, No Dry, No Shortness of breath, No SOB with excertion, No Wheezing, No Hemoptysis, No Pleuritic Pain, No Sputum, No Other Gastrointestinal: No Nausea, No Vomiting, No Abdominal Pain, No Diarrhea, No Constipation, No Melena, No Hematochezia, No Other Genitourinary: No Dysuria, No Frequency, No Incontinence, No Hematuria, No Retention, No Other Musculoskeletal: other (right index finger pain and swelling); No neck pain, No shoulder pain, No arm pain, No back pain, No hand pain, No leg pain, No foot pain Skin: No Rash, No Lesions, No Jaundice, No Bruising, No Other Objective Vitals Vital Signs Date Time Temp Pulse Resp B/P (MAP) Pulse Ox O2 Delivery O2 Flow Rate FiO2 02/18/24 09:00 98.4 71 20 124/78 (93) 94 98.4 02/17/24 20:00 Room Air* 0 21 Intake/Output Intake and Output 02/18/24 07:00 Intake Total 2810 ml Output Total 3325 ml Balance -515 ml Intake Oral 2060 ml IV Total 750 ml Output Urine Total 3325 ml # Bowel Movements 1 General Appearance: Alert, Oriented X3, Cooperative, No acute distress HEENT: Atraumatic, PERRLA, Other (Rash to face.) Lungs: Clear to auscultation Cardiovascular: Normal S1, Normal S2 Abdomen: Normal bowel sounds Rectal: Normal inspection Extremities: Other (right index finger mild swelling) Neuro: Normal gait, Normal speech Psych/Mental Status: Mental status NL, Mood NL Medications Current Medications Medications Dose Ordered Sig/Susan Route Start Time Stop Time Status Last Admin Dose Admin Ondansetron HCl 4 mg Q4HP PRN IV 12/28/23 22:30 Docusate Sodium 100 mg BIDPRN PRN PO 12/28/23 22:30 02/18/24 09:45 100 MG Acetaminophen 650 mg Q6HP PRN PO 12/28/23 22:30 Enoxaparin Sodium 40 mg DAILY SC 02/01/24 10:00 02/18/24 09:27 40 MG Amitriptyline HCl 50 mg HS PO 02/01/24 22:00 02/17/24 22:55 50 MG Fluticasone Propionate 50 mcg Q12HR EACHNOSTRI 02/01/24 22:00 02/15/24 21:28 50 MCG Vancomycin HCl 0 ml @ 0 mls/hr UD IV 02/06/24 12:30 Naproxen 500 mg BID PO 02/09/24 22:00 02/18/24 09:28 500 MG Methylprednisolone Sodium Succinate 40 mg BID IV 02/14/24 10:45 02/18/24 09:27 40 MG Vancomycin HCl 250 ml @ 200 mls/hr Q8H IV 02/17/24 17:00 02/18/24 09:27 200 MLS/HR Laboratory Results Laboratory Tests 02/09/24 05:05 02/18/24 05:10 Microbiology Microbiology Date/Time Source Procedure Growth Status 12/29/23 06:00 Nose MRSA Screen - Final Complete Assessment/Plan Assessment/Plan * Cellulitis/osteomyelitis of the right index finger.- Cont Vanco , monitor renal function * Anxiety * DVT Prop- Lovenox Subq Plan discussed with: Patient Date of Service: Feb 18, 2024 Billing Provider: TIMOTHY CABA MD Common Visit Codes: [id number] INP/OBS CARE(LOW) TIMOTHY CABA MD Feb 18, 2024 10:52
[2024-02-18] MEDS: VANCOMYCIN 1.25GM/250ML 250 ML IV SCH (17:45)
[2024-02-19] VITALS (7 sets, daily range): BP systolic 107–136; BP diastolic 75–88; PULSE 70–108; RESP 15–20; TEMP 97.3–98.9; O2SAT 95–98
[2024-02-19 05:31] LABS: Basophils # (auto) 0 10 ^3/uL (0-0.2); Basophils % (auto) 0.1 % (0.0-2.0); Eosinophils # (auto) 0 10 ^3/uL (0-0.8); Hematocrit 43.7 % (41.0-53.0); Hemoglobin 14.8 g/dL (13.5-17.5); Lymphocytes # (auto) 1.3 10 ^3/uL (0.4-5.4); Lymphocytes % (auto) 10.5 % (10.0-50.0); Mean Corpuscular Hemoglobin 31.5 pg (28.0-32.0); Mean Corpuscular Hgb Conc. 33.8 g/dL (32.0-36.0); Mean Corpuscular Volume 93.3 fL (80.0-100.0); Neutrophils # (auto) 9.9 10 ^3/uL (1.6-8.6); Neutrophils % (auto) 81.4 % (37.0-80.0); Platelet Count (auto) 274 10^3/uL (140-450); Red Blood Cells 4.69 10^6/uL (4.5-5.90); Red Cell Distribution Width 13.8 % (11.8-14.3); White Blood Cell 12.2 10^3/uL (4.4-10.8)
[2024-02-20] VITALS (9 sets, daily range): BP systolic 116–154; BP diastolic 69–95; PULSE 67–108; RESP 18–20; TEMP 97.6–98.9; O2SAT 95–97
--- NOTE | 2024-02-20 08:35 | DVHPN2 ---
Subjective No change. Cont Abx. Reviewed: Care Plan, H&P, Labs, Medications Changes from previous H/P or p: Changes General: Per HPI Eyes: No Pain, No Vision change, No Conjunctivae inflammation, No Eyelid inflammation, No Other, No Redness ENT: No Ear pain, No Ear discharge, No Nose pain, No Nose discharge, No Nose congestion, No Mouth pain, No Mouth swelling, No Throat pain, No Throat swelling, No Other Cardiovascular: No Chest Pain, No Palpitations, No Orthopnea, No Paroxysmal Noc. Dyspnea, No Edema, No Lt Headedness, No Other Respiratory: No Cough, No Dry, No Shortness of breath, No SOB with excertion, No Wheezing, No Hemoptysis, No Pleuritic Pain, No Sputum, No Other Gastrointestinal: No Nausea, No Vomiting, No Abdominal Pain, No Diarrhea, No Constipation, No Melena, No Hematochezia, No Other Genitourinary: No Dysuria, No Frequency, No Incontinence, No Hematuria, No Retention, No Other Musculoskeletal: other (right index finger pain and swelling); No neck pain, No shoulder pain, No arm pain, No back pain, No hand pain, No leg pain, No foot pain Skin: No Rash, No Lesions, No Jaundice, No Bruising, No Other Objective Vitals Vital Signs Date Time Temp Pulse Resp B/P (MAP) Pulse Ox O2 Delivery O2 Flow Rate FiO2 02/20/24 05:00 97.6 67 18 116/74 (88) 96 97.6 02/19/24 20:00 Room Air* 0 21 Intake/Output Intake and Output 02/20/24 07:00 Intake Total 4340 ml Output Total 6350 ml Balance -2010 ml Intake Oral 3840 ml IV Total 500 ml Output Urine Total 6350 ml General Appearance: Alert, Oriented X3, Cooperative, No acute distress HEENT: Atraumatic, PERRLA, Other (Rash to face.) Lungs: Clear to auscultation Cardiovascular: Normal S1, Normal S2 Abdomen: Normal bowel sounds Rectal: Normal inspection Extremities: Other (right index finger mild swelling) Neuro: Normal gait, Normal speech Psych/Mental Status: Mental status NL, Mood NL Medications Current Medications Medications Dose Ordered Sig/Susan Route Start Time Stop Time Status Last Admin Dose Admin Ondansetron HCl 4 mg Q4HP PRN IV 12/28/23 22:30 Docusate Sodium 100 mg BIDPRN PRN PO 12/28/23 22:30 02/19/24 14:31 100 MG Acetaminophen 650 mg Q6HP PRN PO 12/28/23 22:30 Enoxaparin Sodium 40 mg DAILY SC 02/01/24 10:00 02/19/24 10:58 40 MG Amitriptyline HCl 50 mg HS PO 02/01/24 22:00 02/19/24 22:05 50 MG Fluticasone Propionate 50 mcg Q12HR EACHNOSTRI 02/01/24 22:00 02/19/24 22:04 50 MCG Vancomycin HCl 0 ml @ 0 mls/hr UD IV 02/06/24 12:30 Naproxen 500 mg BID PO 02/09/24 22:00 02/19/24 22:05 500 MG Methylprednisolone Sodium Succinate 40 mg BID IV 02/14/24 10:45 02/19/24 22:05 40 MG Vancomycin HCl 250 ml @ 200 mls/hr Q8H IV 02/18/24 17:45 02/20/24 02:00 200 MLS/HR Laboratory Results Laboratory Tests 02/09/24 05:05 02/19/24 05:05 Microbiology Microbiology Date/Time Source Procedure Growth Status 12/29/23 06:00 Nose MRSA Screen - Final Complete Assessment/Plan Assessment/Plan * Cellulitis/osteomyelitis of the right index finger.- Cont Vanco , monitor renal function * Anxiety * DVT Prop- Lovenox Subq Plan discussed with: Other Date of Service: Feb 19, 2024 Billing Provider: TIMOTHY CABA MD Common Visit Codes: [id number] INP/OBS CARE(LOW) TIMOTHY CABA MD Feb 20, 2024 08:35
[2024-02-20] MEDS: PANTOPRAZOLE 40 MG TAB PO ONE (10:08)
--- NOTE | 2024-02-20 20:30 | DVHPN ---
DATE: 02/20/2024 SUBJECTIVE: The patient is sitting up in bed, eating lunch, and seems he has a voracious appetite. Does far he has completed at 90% and he is still eating. He denies any complaints. He is comfortable. He is in no active distress. Specifically, denies cough, shortness of breath, or fever. States that he believes the steroids are really working well because swelling of his finger has receded that is almost normal. Range of motion he states is also improved markedly and is almost normal. OBJECTIVE: VITAL SIGNS: His temperature is 98.3 with a blood pressure of 131/82, heart rate of 79, respiratory rate of 18, O2 sats 95% on room air. HEART: S1, S2 regular without click, murmur, or gallop. LUNGS: Good equal air exchange bilateral, clear to auscultation. ABDOMEN: Soft, nondistended, nontender. Bowel sounds positive. No mass, guarding, or rebound. EXTREMITIES: Right index finger shows minimal swelling with minimal decreased range of motion. It is nontender and cool to the touch without any erythema. ASSESSMENT: * Osteomyelitis/cellulitis, right index finger. * Inflammatory arthritis, right index finger. * Asthma. * Anxiety. PLAN: We will continue with the IV antibiotics using vancomycin and Rocephin for the osteomyelitis. [place] for pain, IV steroids and NSAIDs for possible inflammatory arthritis. Lovenox for DVT prophylaxis and Zofran for nausea and vomiting and albuterol for asthma. We will continue to await a bed at [facility] after being accepted by Dr. Laboy. MD CLAU Caruso/HAI TID: [id number] RECEIPT: [id number]
[2024-02-21] VITALS (9 sets, daily range): BP systolic 105–134; BP diastolic 50–75; PULSE 71–110; RESP 18; TEMP 97.8–101; O2SAT 96–99
[2024-02-21] MEDS: methylPREDNISolone SOD SUCC 40 MG/ML VL IV SCH (06:39)
[2024-02-21] MEDS: PANTOPRAZOLE 40 MG TAB PO SCH (06:39)
--- NOTE | 2024-02-21 20:30 | DVHPN ---
DATE: 02/21/2024 ATTENDING PHYSICIAN: Dr. Jeremías Gar. SUBJECTIVE: The patient is in bed. He is comfortable. He is in no active distress. No untoward events have been noted. No new complaints. The patient states he continues to ambulate a few times a day. We are currently still awaiting bed availability at [facility] for higher level of care in which the patient can be evaluated by hand/ortho specialist. OBJECTIVE: VITAL SIGNS: His temperature is 97.8 with a blood pressure 126/66, heart rate of 71, respiratory rate 18, O2 sat 99% on room air. HEART: S1, S2 regular. No click, murmur or gallop. LUNGS: Good equal air exchange bilateral, clear to auscultation. ABDOMEN: Soft, nondistended, nontender. Bowel sounds positive. No mass, guarding or rebound. NEUROLOGIC: He is awake, alert, oriented x 4 without focal deficits. EXTREMITIES: Right index finger remains with mild swelling, negative erythema. There is mild decreased range of motion. It is cool to the touch. ASSESSMENT: * Osteomyelitis/cellulitis, right index finger. * Inflammatory arthritis, right index finger. * Asthma. * Anxiety. PLAN: We will continue with IV steroids and NSAIDs for possible inflammatory arthritis. Vancomycin and Rocephin IV antibiotics for the osteomyelitis/cellulitis, Lovenox for DVT prophylaxis, [place] for pain, Zofran for nausea and vomiting, and albuterol for the asthma. Again, we are awaiting bed availability at [facility] for higher level of care. MD CLAU Caruso/JAZZMINE TID: [id number] RECEIPT: [id number]
[2024-02-22] VITALS (9 sets, daily range): BP systolic 112–147; BP diastolic 67–94; PULSE 61–104; RESP 17–18; TEMP 97.8–99.1; O2SAT 93–98
--- NOTE | 2024-02-22 23:22 | DVHPN ---
DATE: 02/22/2024 ATTENDING PHYSICIAN: Dr. Jeremías Gar. SUBJECTIVE: The patient is sitting up in bed, watching TV, eating his lunch. He has a very good appetite. He states that he feels really good and the index finger continues to improve. No new complaints. No untoward events noted. OBJECTIVE: VITAL SIGNS: His temperature is 99.1 with a blood pressure 132/83, heart rate of 104, respiratory rate of 17, O2 sat 96% on room air. HEART: S1, S2 regular. No click, murmur or gallop. LUNGS: Good equal air exchange bilateral, clear to auscultation. ABDOMEN: Soft, nondistended, nontender. Bowel sounds positive. EXTREMITIES: Right index finger continues to show mild swelling without any erythema. It is cool to the touch with mild decreased range of motion. ASSESSMENT: * Osteomyelitis/cellulitis, right index finger. * Inflammatory arthritis, right index finger. * Asthma. * Anxiety. PLAN: We will continue with the IV vancomycin and Rocephin for the osteomyelitis, cellulitis. We will continue with Lovenox for DVT prophylaxis, Solu-Medrol for possible inflammatory arthritis, [place] for pain and Zofran for nausea and vomiting. MD CLAU Caruso/CARMEN TID: [id number] RECEIPT: [id number]
[2024-02-23] VITALS (9 sets, daily range): BP systolic 105–140; BP diastolic 66–87; PULSE 62–115; RESP 17–20; TEMP 97.8–99.5; O2SAT 94–100
--- NOTE | 2024-02-23 19:52 | DVHPN ---
DATE: 02/23/2024 ATTENDING PHYSICIAN: Jeremías Gar MD SUBJECTIVE: The patient is lying in bed. He is resting comfortably. He is in no active distress. He offers no other complaints. Denies any pain. No untoward events have been noted. OBJECTIVE: VITAL SIGNS: His temperature is 98 with a blood pressure 108/72, heart rate of 79, respiratory rate of 18, O2 sats 100% on room air. HEART: S1, S2 regular. No click, murmur or gallop. LUNGS: Good equal air exchange bilateral, clear to auscultation. ABDOMEN: Soft, nondistended, nontender. Bowel sounds positive. No mass, guarding or rebound. NEUROLOGIC: He is awake, alert and oriented x 4. No focal deficits. EXTREMITIES: Right index finger without change. ASSESSMENT: * Osteomyelitis, cellulitis of right index finger. * Inflammatory arthritis of right index finger. * Asthma. * Anxiety. PLAN: We are still awaiting a bed availability. We will continue with Solu-Medrol for the possible inflammatory arthritis. MD CLAU Caruso/PAO TID: [id number] RECEIPT: [id number]
[2024-02-24] VITALS (9 sets, daily range): BP systolic 106–141; BP diastolic 70–98; PULSE 72–111; RESP 18–21; TEMP 97.8–98.6; O2SAT 96–98
[2024-02-24 06:42] LABS: Basophils # (auto) 0 10 ^3/uL (0-0.2); Basophils % (auto) 0.1 % (0.0-2.0); Eosinophils # (auto) 0.2 10 ^3/uL (0-0.8); Hematocrit 40.7 % (41.0-53.0); Hemoglobin 13.8 g/dL (13.5-17.5); Lymphocytes % (auto) 30.6 % (10.0-50.0); Mean Corpuscular Hemoglobin 32.1 pg (28.0-32.0); Mean Corpuscular Hgb Conc. 33.8 g/dL (32.0-36.0); Mean Corpuscular Volume 94.8 fL (80.0-100.0); Monocytes # (auto) 1.2 10 ^3/uL (0-1.3); Monocytes % (auto) 11.9 % (0.0-12.0); Neutrophils # (auto) 5.4 10 ^3/uL (1.6-8.6); Neutrophils % (auto) 55.4 % (37.0-80.0); Platelet Count (auto) 227 10^3/uL (140-450); Red Blood Cells 4.29 10^6/uL (4.5-5.90); Red Cell Distribution Width 14.2 % (11.8-14.3); White Blood Cell 9.8 10^3/uL (4.4-10.8)
--- NOTE | 2024-02-24 21:52 | DVHPN ---
DATE: 02/24/2024 ATTENDING PHYSICIAN: Dr. Jeremías Gar SUBJECTIVE: The patient is sitting up in bed. He is watching TV. He seems in good spirits. He is comfortable. He is in no active distress. No new complaints. No untoward events noted. OBJECTIVE: VITAL SIGNS: His temperature is 98.4 with a blood pressure 141/84, heart rate of 72, respiratory rate of 20, O2 sats 96% on room air. PE is without change. ASSESSMENT: * Osteomyelitis/cellulitis of right index finger. * Inflammatory arthritis of the right index finger. * Asthma. * Anxiety. PLAN: We will continue with the IV antibiotics using vancomycin. We will continue with Lovenox for DVT prophylaxis. We will continue with the Solu-Medrol and naproxen for the possible inflammatory arthritis. We are awaiting bed availability for transfer to [facility] for higher level of care. MD CLAU Caruso/JAZZMINE TID: [id number] RECEIPT: [id number]
[2024-02-25] VITALS (8 sets, daily range): BP systolic 111–128; BP diastolic 66–93; PULSE 70–98; RESP 15–21; TEMP 98.4–99.3; O2SAT 94–98
[2024-02-25 06:44] LABS: Basophils # (auto) 0 10 ^3/uL (0-0.2); Basophils % (auto) 0.1 % (0.0-2.0); Eosinophils # (auto) 0.1 10 ^3/uL (0-0.8); Eosinophils % (auto) 1.3 % (0.0-7.0); Hematocrit 41.1 % (41.0-53.0); Hemoglobin 13.8 g/dL (13.5-17.5); Lymphocytes % (auto) 26.5 % (10.0-50.0); Mean Corpuscular Hemoglobin 31.7 pg (28.0-32.0); Mean Corpuscular Hgb Conc. 33.5 g/dL (32.0-36.0); Mean Corpuscular Volume 94.7 fL (80.0-100.0); Monocytes # (auto) 1.4 10 ^3/uL (0-1.3); Monocytes % (auto) 12.9 % (0.0-12.0); Neutrophils # (auto) 6.6 10 ^3/uL (1.6-8.6); Neutrophils % (auto) 59.2 % (37.0-80.0); Nucleated Red Blood Cells % 0.1 %; Platelet Count (auto) 226 10^3/uL (140-450); Red Blood Cells 4.34 10^6/uL (4.5-5.90); White Blood Cell 11.2 10^3/uL (4.4-10.8)
--- NOTE | 2024-02-25 17:55 | DVHPN ---
DATE: 02/25/2024 ATTENDING PHYSICIAN: Dr. Jeremías Gar. SUBJECTIVE: The patient is currently getting up out of bed. He is going for a walk and so the guards are removing his cuff from the bed. He states all is good. He just questions when he will be transferring, my answer was whenever a bed was available all the information I got. He denies any complaints, specifically denies any chest pain, cough, shortness of breath nor fever. He says the finger continues to be improving daily. OBJECTIVE: VITAL SIGNS: His temperature is 99.2 with a blood pressure of 124/87, heart rate of 88, respiratory rate 20, O2 sats 98% on room air. HEART: S1, S2 regular. No click, murmur or gallop. LUNGS: Good equal air exchange bilateral, clear to auscultation. ABDOMEN: Soft, nondistended, nontender. Bowel sounds positive. No mass, guarding or rebound. NEUROLOGIC: Awake, alert, oriented x 4. No focal deficit. EXTREMITIES: Right index finger has minimal swelling. It is cool to the touch. There is minimal decreased range of motion and it is nontender. He is neurovascularly intact distally. ASSESSMENT: * Osteomyelitis, cellulitis of right index finger. * Inflammatory arthritis of right index finger. * Asthma. * Anxiety. PLAN: We will continue with IV antibiotics using vancomycin for the osteomyelitis. Continue with naproxen and Solu-Medrol for the inflammatory arthritis. We will continue Lovenox for DVT prophylaxis and albuterol for asthma and continue to encourage the patient to ambulate. We will await for bed at [facility] for transfer. MD CLAU Caruso/PAO TID: [id number] RECEIPT: [id number]
[2024-02-26] VITALS (8 sets, daily range): BP systolic 108–119; BP diastolic 79–88; PULSE 83–107; RESP 17–20; TEMP 97.6–98.1; O2SAT 92–97
[2024-02-26] MEDS ORDERED: CIPR500T4 PO (08:49)
--- NOTE | 2024-02-26 12:38 | DVHDS ---
DATE OF DISCHARGE: 02/26/2024 ATTENDING PHYSICIAN: Dr. Jeremías Gar. CHIEF COMPLAINT ON ADMISSION: Pain, swelling and cellulitis of right index finger. HISTORY OF PRESENT ILLNESS: This is a 38-year-old male, [facility] inmate, who had known history of osteomyelitis of right index finger, but due to a breech of security when he was at [facility], he was discharged immediately and sent to the [facility]. After approximately 2 weeks, he was brought to [facility] and workup which included x-rays and MRI of the index finger revealed osteomyelitis and he was admitted for further management. ADMITTING DIAGNOSES: Osteomyelitis/cellulitis, right index finger; asthma; and anxiety. HOSPITAL COURSE: He was admitted to Med/Surg in stable condition, started on IV antibiotics, initially using vancomycin and Rocephin. He was also given DVT prophylaxis, analgesics, regular diet, albuterol and Pulmicort as well as p.r.n. anti-anxiety medications. Repeat MRI initially showed improvement. Repeat after that showed minimal changes, but question of inflammatory arthritis. Rheumatology consult was obtained and opinion was though if inflammatory arthritis is possible, it is believed that the patient does show signs that he has osteomyelitis at which point I had a discussion with the patient, initially was not willing to have a surgical evaluation or consult, had a change of heart and was willing. I was put in contact with Dr. Laboy at [facility]. Case was explained and she accepted the patient. It has been well over a few weeks that no bed has been available and case was discussed with the patient. I explained to him this is not life-threatening or emergent and what he can do is to discharge the patient on oral antibiotics or check in with health services unit at the [facility]. They can make arrangements for outpatient orthopedic or if they feel more urgent, they send him directly to [facility] Emergency Room. The patient is in agreement. He agrees that all he is doing is lying in bed. I will now discharge the patient with a prescription for Cipro x3 months with the instructions to follow up upon return to the [facility] with health services unit and notify them of the need for outpatient Ortho for followup on index finger osteomyelitis versus inflammatory arthritis. DISCHARGE DIAGNOSES: * Cellulitis/osteomyelitis, right index finger. * Inflammatory arthritis, right index finger. * Asthma. * Anxiety. CONDITION ON DISCHARGE: Stable. MEDICATIONS: Given a prescription for Cipro 500 mg p.o. b.i.d. x1 month with 2 refills. MD CLAU Caruso/KOLBY/JANEL TID: [id number] RECEIPT: [id number]
== END 2024-02-26 21:15 | DRG 540 ==
LOC: ER 17:07 → EEVIPCON 17:07 → OVERFLOW 22:34 → WEST WING 12-29 04:03 → EAST 01-01 06:43
PROVIDERS: ADMIT Internal Medicine; ATTEND Internal Medicine
DX: M86.141 Other acute osteomyelitis, right hand (principal); M00.9 Pyogenic arthritis, unspecified; L03.011 Cellulitis of right finger; M11.9 Crystal arthropathy, unspecified; M19.041 Primary osteoarthritis, right hand; M06.4 Inflammatory polyarthropathy; M86.642 Other chronic osteomyelitis, left hand; E16.2 Hypoglycemia, unspecified; F41.9 Anxiety disorder, unspecified; J45.909 Unspecified asthma, uncomplicated; Z79.899 Other long term (current) drug therapy; Z83.3 Family history of diabetes mellitus; Z98.1 Arthrodesis status
CPT/HCPCS: 36415; 73130; 73218; 80048; 80053; 80069; 80074; 80202; 82565; 83605; 84550; 85025; 85652; 86038; 86141; 86200; 86431; 86703; 86706; 86803; 87081; 87340; 94640; G0378; J1885; J7042